=== PATIENT | male | born 1955 | race Caucasian/White ===

== ENCOUNTER 2017-01-24 17:42 | Inpatient (IN) ==
[2017-01-24] MEDS ORDERED: ALBUTEROL/IPRATROPIUM 3 ML NEB RESP TX STA (19:00)
[2017-01-24] MEDS ORDERED: methylPREDNISolone SOD SUC 125 MG/2 ML VIAL IV STA (19:00)
[2017-01-24] MEDS ORDERED: AZITHROMYCIN INJ 500 MG in SODIUM CHLORIDE 0.9% 250 ML IV STA (19:00)
[2017-01-24] MEDS ORDERED: SULFAMETHOX/TRIMETHOPRIM 800-160 MG TABLET PO STA (19:02)
--- NOTE | 2017-01-24 19:11 | Emergency Department Note ---
Arrival - Arrival Chief Complaint: Shortness of Breath Stated Complaint: can not breathe deep ED Nursing Triage Note: C/O HAVING CHEST TIGHTNESS X 2 DAYS., STATES HE IS UNABLE TO GET A DEEP BREATH., + CHILLS, STATES THE PAIN IN CHEST IS RADIATING TO THE NECK, ALSO STATES HAVING COLD SYMTPOMS X 2 WEEKS., + SOB., Mode of Arrival: Ambulatory Limitations: No Limitations Source: Patient Time Seen by Provider: 01/24/17 19:00 - History of Present Illness HPI Narrative: This 61-year-old white male presents with a history of 2 days of what he describes as chest tightness and not true pain associated with the sensation that he cannot get a deep breath. However he is also had complaints of chills, fever, and dyspnea on exertion as well as rest. This is with a background of 2 weeks of sinus type symptoms and a history of HIV diagnosed 19 years ago and PCP pneumonia during his first year of diagnosis. The patient was taken off medications 18 months ago and has no idea at this time what his CD4 count or viral load is. He denies any sore throat. Currently he appears in no acute medical distress. Onset (ago): day(s) (Patient presents 2 days post onset of symptoms) Allergies/Adverse Reactions: Allergies Allergy/AdvReac Type Severity Reaction Status Date / Time No Known Allergies Allergy Unverified 01/24/17 17:51 Home Medications: Home Medications Medication Instructions Recorded Confirmed Type No Known Home Medications [No 01/24/17 01/24/17 History Known Home Medications] Review of System - Review of System 12 point system: reviewed and no additional remarkable complaints except as stated - Review of System Constitutional: Present: as per HPI Head/Ears/Nose/Throat: Present: see HPI Respiratory: Present: as per HPI Cardiovascular: Present: as per HPI Medical,Surgical,& Family Hx - Medical History Other: History of: HIV - Social History Smoking Status: Smoker, status unknown Frequency of Alcohol Use: None Type of Drug Use: Marijuana, Methamphetamine Exam Physical Examination: GENERAL: Well developed, well nourished white male in no acute distress. HEENT: Normocephalic. No trauma. Moist mucous membranes. EOMI. PERRLA. ENT NML NECK: Supple. No adenopathy. CARDIAC: Regular. No murmurs. Heart rate 106 CHEST: Clear to auscultation. No respiratory distress. O2 sat 92% ABDOMEN: Soft. Nontender. Active bowel sounds. EXTREMITIES: No trauma. Normal ROM. No pedal edema. SKIN: No diaphoresis. No rash. NEURO: Alert. Neuro intact no focal deficits. Vital Signs: Vital Signs Temperature 98.0 F 01/24/17 17:45 Pulse Rate 101 H 01/24/17 18:50 Respiratory Rate 20 01/24/17 18:50 Blood Pressure 159/118 01/24/17 18:50 O2 Sat by Pulse Oximetry 92 L 01/24/17 17:45 Course - Reevaluation(s) Reevaluation #1: Advised patient that with his cardiopulmonary problems he will need to be admitted for further evaluation and treatment. - Consultations Consultation #1: Discussed with hospitalist service who will admit the patient for further evaluation treatment. Results - Labs CBC & BMP: 01/24/17 18:58 01/24/17 18:58 Labs: I have reviewed his laboratory and noted the leukopenia as well as the bump in troponin and elevated BMP. - Impressions EKG: Sinus tachycardia at 110 with occasional PAC with normal [place] interval and QRS duration. Left atrial enlargement noted nonspecific ST changes. No acute injury pattern noted. - Diagnostic Findings Procedure: Chest x-ray: image reviewed by me, report reviewed by me (Evidence of bilateral infiltrates which are consistent with PCP pneumonia and with failure.) Disposition Clinical Impression: Presumptive PCP pneumonia, Abnormal cardiac enzyme, HIV positive, Congestive heart failure Case discussed with: patient, patient's family Disposition: Still a Patient Condition: Guarded Time of Disposition: 00:07
[2017-01-24 19:19] LABS: Basophils % 0.5 % (0.0-0.8); Eosinophils # 0.1 10*3/uL (0.0-0.87); Eosinophils % 1.9 % (0.00-10.9); Hematocrit 40.9 VOL% (42.0-52.0); Hemoglobin 14.1 GM/DL (14.0-18.0); Immature Granulocytes % 0.3 %; Immature Granulocytes Absolute 0.01 #; Lymphocytes # 1.4 10*3/uL (1.4-4.0); Lymphocytes % 37.9 % (21.2-54.2); Mean Corpuscular HGB Conc 34.5 GM/DL (32-36); Mean Corpuscular Hemoglobin 30 PG (27-34); Mean Corpuscular Volume 85.9 FL (87-102); Mean Platelet Volume 10.2 FL (9.6-12.0); Monocytes # 0.4 10*3/uL (0.11-0.8); Monocytes % 10.1 % (1.7-12.7); Neutrophils # 1.9 10*3/uL (1.4-7.4); Neutrophils % 49.3 % (38.7-73.9); Platelet Count 177 T/CUMM (130-400); Red Blood Count 4.76 MC/CUMM (3.8-5.5); Red Cell Distribution Width 14.5 % (9.3-17.3); White Blood Count 3.8 T/CUMM (4-12)
[2017-01-24] MEDS ORDERED: methylPREDNISolone SOD SUC 125 MG/2 ML VIAL ONE (19:41)
[2017-01-24] MEDS ORDERED: SULFAMETHOX/TRIMETHOPRIM 800-160 MG TABLET ONE (19:41)
[2017-01-24] MEDS ORDERED: AZITHROMYCIN 500 MG VIAL IV ONE (19:41)
[2017-01-24 19:48] LABS: Alanine Aminotransferase 53 U/L (16-61); Alkaline Phosphatase 96 U/L (45-117); Aspartate Amino Transferase 37 U/L (0-37); Bilirubin,Total < 0.39 MG/DL (0.2-1.0); Blood Urea Nitrogen 16 MG/DL (7-18); Calcium 8.3 MG/DL (8.5-10.1); Glucose 90 MG/DL (74-106); Osmolality,Calculated 275.7 MOS/KG (273-304); Potassium 4.1 MMOL/L (3.5-5.1); Sodium 138 MMOL/L (136-145); Total Protein 7.9 G/DL (6.4-8.3)
[2017-01-24 19:49] LABS: Troponin I Only 0.048 NG/ML (0.00-0.045)
[2017-01-24 19:53] LABS: PT Patient Result 10.6 SECS; Partial Thromboplastin Time 32.7 SECS (0-40)
[2017-01-24 20:07] LABS: Apearance,Urine CLEAR (Clear); Bilirubin,Urine Negative (Negative); Blood, Urine Negative (Negative); Glucose,Urine (UA) Negative (Negative); Ketones,Urine Negative (Negative); Mucus,Urine Occasional /LPF (Occasional); Nitrite,Urine Negative (Negative); Protein,Urine 100 MG/DL; RBC,Urine <1 /HPF (0-4); Urine Color Yellow (Yellow); Urine Specific Gravity 1.011 (1.001-1.035); Urine Urobilinogen < 2.0 EU/DL (0.2-1.0); WBC,Urine 1 /HPF (0-6)
[2017-01-24] MEDS ORDERED: FUROSEMIDE 40 MG/4 ML VIAL IV STA (23:25)
[2017-01-24] MEDS ORDERED: FUROSEMIDE 100 MG/10 ML VIAL ONE (23:44)
--- NOTE | 2017-01-25 01:11 | Hospitalist History & Physical ---
Assessment and Plan (1) HIV disease Status: Acute Assessment and plan: Patient is currently on no treatment at all. Will need to check his CD4 count, viral load and viral genotype if detectable. My suspicion that his immune system showed completely he has had pulmonary pneumocystosis in the past suggesting that this is the cause of the problem was likely. I will consult infectious disease to see the patient. In the meantime run LDH on the serum and in the. Try to obtain sputum for PJP, CMV PCR. In the face of his pneumonia we will withhold his antiretrovirals to mitigate immune reconstitution syndrome. ID consult is called Current Visit: Yes (2) Interstitial pneumonia Status: Acute Assessment and plan: More than likely this is PJP pneumonia. Patient is to be started on the trimethoprim sulfa giving creatinine 320 mg/kg of the trimethoprim base every 6 hours. Patient also been put on high-dose steroids using Solu-Medrol 150 mg once followed by 80 mg IV every 6 hours. Check sputum for PCP CMV PCR as well as AFB stain and culture may have to resort to pulmonary consultation on these to get sputum by bronchoscopy if sputum induction fails. Current Visit: Yes History of Present Illness Chief complaint: Respiratory distress History of present illness: Mr. Winters is a 61 year old male presents with a history of 2 days of what he describes as chest tightness and not true pain associated with the sensation that he cannot get a deep breath. However he is also had complaints of chills, fever, and dyspnea on exertion as well as rest. This is with a background of 2 weeks of sinus type symptoms and a history of HIV diagnosed 19 years ago and PCP pneumonia during his first year of diagnosis. The patient was taken off medications 18 months ago and has no idea at this time what his CD4 count or viral load or viral genotype is. He was under the care of Dr. Smith Home Medications Medication Instructions Recorded Confirmed Type No Known Home Medications [No 01/24/17 01/24/17 History Known Home Medications] Allergies Allergy/AdvReac Type Severity Reaction Status Date / Time No Known Allergies Allergy Unverified 01/24/17 17:51 Medical,Surgical,& Family Hx - Medical History Other: History of: HIV - Social History Smoking Status: Smoker, status unknown Frequency of Alcohol Use: None Type of Drug Use: Marijuana, Methamphetamine Review of systems: A 12 system assessment was done. Patient does have some respiratory difficulty. There is no fevers or chills. He does have a feeling of being smothered. Had an abnormal chest x-ray suggesting interstitial pneumonitis pneumonia. History of HIV disease. His immune status has not been quantitated a long time and his viral load has not been quantitated for a long time patient reports being taken off antiretrovirals medication through advice of his primary care provider. Exam - Constitutional Vitals: Period Temp Pulse Resp BP Sys/Calhoun Pulse Ox Last 24 Hr 98.0 F 101-106 18-20 159-181/118-123 92 General appearance: normal weight - Head Head exam: Present: normal inspection, normocephalic, atraumatic - Eye Eye exam: Present: EOMI, other (Anicteric sclera no conjunctival petechiae) - ENT ENT exam: Present: normal exam, normal oropharynx - Neck Neck exam: Present: normal inspection, other (Supple neck no adenopathy no thyromegaly midline trachea no stridor) - Respiratory Respiratory exam: Present: other (No bronchophony no rales or wheezing) - Cardiovascular Cardiovascular exam: Present: regular rate and rhythm - GI/Abdominal GI/Abdominal exam: Present: normal bowel sounds - Extremities Exam Extremities exam: Present: full ROM - Neurological Exam Neurological exam: Present: alert, oriented X3, CN II-XII intact - Psychiatric Psychiatric exam: Present: normal mood, anxious - Skin Skin exam: Present: normal color, warm, dry Results - Labs CBC & BMP: 01/24/17 18:58 01/24/17 18:58 Lab Results: I have reviewed the past 24 hour labs - Diagnostic Findings Procedure: Chest x-ray: image reviewed by me (Interstitial markings especially in the lower lobes suggesting interstitial pneumonitis/pneumonia)
[2017-01-25] MEDS ORDERED: methylPREDNISolone SOD SUC 125 MG/2 ML VIAL IV STA (01:34)
[2017-01-25] MEDS ORDERED: methylPREDNISolone SOD SUC 125 MG/2 ML VIAL ONE (02:10)
[2017-01-25] MEDS: SULFAMETH/TRIMETH INJ 300 MG in DEXTROSE 5% 500 ML IV SCH ×3 (03:51→18:41)
--- NOTE | 2017-01-25 06:06 | EKG Report ---
Stationary ECG Study [facility] ER Test Date: 01/24/2017 5:56:23 PM Pat Name: EPHRAIM ARRINGTON Department: Room: 242 Gender: M Snipper: : 1955 Requested by: Og Ortiz Order Number: [id number] Reading MD: TYRONE FLYNN Intervals [place] Rate: 107 P: 73 NM: 147 QRS: 36 QRSD: 92 T: 94 QT: 342 QTc: 404 Interpretive Statements SINUS TACHYCARDIA WITH OCCASIONAL SUPRAVENTRICULAR PREMATURE COMPLEXES LEFT ATRIAL ENLARGEMENT Electronically Signed On 01-25-17 10:43:53 CDT by TYRONE FLYNN [email or web address]
--- NOTE | 2017-01-25 07:39 | XRay Report ---
Exam: Chest 2 views Date: January 24, 2017 at 11:36 PM Comparison: None Reason: Shortness of breath Findings: The cardiac silhouette is mildly enlarged. The lungs are hyperexpanded, which can be seen in COPD. There are reticular and hazy opacities within both lungs, mainly within the mid and lower lung zones. This is concerning for pulmonary edema, but there could also be fibrosis. Pneumonia is felt less likely but is also in the differential. No pneumothorax is identified, but there may be minimal bilateral pleural fluid. Emphysema is suspected. No acute osseous process is seen. Impression: 1. Cardiomegaly. 2. There are reticular and hazy opacities within both lungs, mainly within the mid and lower lung zones. This is concerning for pulmonary edema, but there could also be fibrosis. Pneumonia is not excluded. 3. The lungs are hyperexpanded, which can be seen in COPD, and emphysema is suspected. PROCEDURE INTERPRETED AT [facility], [place] DEPARTMENT OF RADIOLOGY Final Report Signed by: Dr. Daisy Hutchinson
[2017-01-25] MEDS ORDERED: methylPREDNISolone SOD SUC 40 MG/1 ML VIAL IV SCH (10:00)
--- NOTE | 2017-01-25 14:19 | Infectious Disease Consult ---
Assessment and Plan (1) HIV disease Status: Acute Assessment and plan: Possible significant immune suppression as patient has been off antiretroviral therapy. Recommendations: Patient is to get back on antiretroviral therapy. I offered to be his HIV provider given that Dr. Nelson no longer has an outpatient practice. She his CD4 count and HIV viral load have already been ordered. If I see me in the office we will get his records from Dr. Nelson and reinstitute antiretroviral therapy. Thank you very much for the consult. Will follow. Current Visit: Yes (2) Interstitial pneumonia Status: Acute Assessment and plan: PCP is a possibility in this case of the would have expected his LDH to be elevated. If it is PCP it is mild given the fact that his O2 saturation has been above 90%. Recommendations: 1. Agree with Bactrim however would decrease the dose to every 8 hours, 5 mg/ kg trimethoprim component 2. Will discontinue steroids since his oxygen saturation has been above 90% consistently 3. Send sputum for Gram stain culture and also silver stain if patient able to produce sample 4. If patient remains stable we could let him go home on oral Bactrim 2 double strength tablets 3 times a day and I will see him in the office within a week Current Visit: Yes History of Present Illness Chief complaint: HIV infection History of present illness: Mr. Winters is a 61 year old male Who was diagnosed with HIV 19 years ago and was doing very well being treated by Dr. Patricia. However about 9 months ago he decided to take himself off antiretroviral therapy as he was concerned about damage to his liver. He has been well since then until a few days ago when he started having tightness in his chest especially when he took a deep breath in and out. He also was experiencing exertional dyspnea for the past couple of weeks. Minimal whitish sputum when he coughs, no hemoptysis. He has not had any fever or chills. Appetite has been excellent no nausea vomiting or diarrhea. No significant weight loss recently. He has been put on empiric Bactrim for PCP and also given high-dose steroids. I am asked to assist with management. Patient actually says he is feeling a bit better today and he is ready to go home if possible. Patient admits to IV drug use, methamphetamine, with last use about 2 weeks ago. He says he never shares needles. No past history of hepatitis. Home Medications Medication Instructions Recorded Confirmed Type No Known Home Medications [No 01/24/17 01/24/17 History Known Home Medications] Allergies Allergy/AdvReac Type Severity Reaction Status Date / Time No Known Allergies Allergy Unverified 01/24/17 17:51 12 point system: reviewed and no additional remarkable complaints except as stated (Patient thinks he had thrush a few weeks ago. Rest of comprehensive review of systems negative apart from what was mentioned in the HPI) Medical,Surgical,& Family Hx - Medical History Respiratory: History of: Pneumonia (pcp x2) Reproductive: Reports: Sexually Transmitted Disease (HIV x 19 years) Other: History of: HIV - Social History Smoking Status: Smoker, status unknown Frequency of Alcohol Use: None Type of Drug Use: Marijuana, Methamphetamine Infectious Disease Exam H&P - Constitutional Vitals: Vital Signs Temp Pulse Resp BP Pulse Ox 98.4 F 100 H 20 139/80 93 L 01/25/17 12:00 01/25/17 12:00 01/25/17 12:00 01/25/17 12:00 01/25/17 12:00 Intake and Output 01/24/17 01/25/17 01/25/17 23:59 07:59 15:59 Intake Total 250 / 250 518.75 / 518.75 Output Total 350 / 350 Balance 250 / 250 168.75 / 168.75 Intake: IV 250 / 250 518.75 / 518.75 Zithromax Inj 500 mg In 250 / 250 Ns 250 ml @ 250 mls/hr IV 1X ED STA Rx#:[id number] Bactrim Inj 300 mg In D5 518.75 / 518.75 500 ml @ 333 mls/hr IV Q6H LEÓN Rx#:[id number] Output: Urine 350 / 350 Other: Voiding Method Urinal Weight 70.307 kg 68.991 kg Patient Weight 01/25/17 23:59 Weight 68.991 kg Exam: General: Patient comfortable, nontoxic appearing, well built HEENT: Mucous membranes pink and moist, anicteric acyanotic, JULIO, no oral exudates Neck: Supple, no thyroid gland enlargement, no lymphadenopathy Respiratory system: Breath sounds vesicular, no crepitations or wheezes Cardiovascular: Normal S1 and S2, no murmurs appreciated Abdomen: Normal bowel sounds, soft nontender throughout, no organomegaly or mass Genitourinary: No suprapubic pain or bladder distention Extremities: no edema Skin: No rash Reports - Labs CBC & BMP: 01/24/17 18:58 01/24/17 18:58 Labs: Laboratory Results - last 24 hr 01/24/17 01/24/17 01/24/17 18:58 18:58 18:58 WBC 3.8 L RBC 4.76 Hgb 14.1 Hct 40.9 L MCV 85.9 L MCH 30 MCHC 34.5 RDW 14.5 Plt Count 177 MPV 10.2 Neut % (Auto) 49.3 Lymph % (Auto) 37.9 [place] % (Auto) 10.1 Eos % (Auto) 1.9 Baso % (Auto) 0.5 Neut # (Auto) 1.9 Lymph # (Auto) 1.4 [place] # (Auto) 0.4 Eos # (Auto) 0.1 Baso # (Auto) 0.0 Immature Gran % 0.3 Nucleated RBC % 0.0 Immature Gran # 0.01 Nucleated RBCs # 0.00 INR 1.0 PT Patient/Control Mix 10.6 Circ Anticoag PTT 32.7 Sodium 138 Potassium 4.1 Chloride 107 Carbon Dioxide 24 Anion Gap 11.1 BUN 16 Creatinine 0.90 GFR Calculation 98 BUN/Creatinine Ratio 17.00 Glucose 90 Calculated Osmolality 275.7 Calcium 8.3 L Total Bilirubin < 0.39 AST 37 ALT 53 Alkaline Phosphatase 96 Lactate Dehydrogenase Total Creatine Kinase 97 CK-MB (CK-2) 3.0 Troponin I 0.048 H B-Natriuretic Peptide Total Protein 7.9 Albumin 3.0 L Globulin 4.9 H Albumin/Globulin Ratio 0.6 L Urine Color Urine Appearance Urine pH Ur Specific [place] Urine Protein Urine Glucose (UA) Urine Ketones Urine Blood Urine Nitrate Urine Bilirubin Urine Urobilinogen Urine Leukocytes Urine RBC Urine WBC Urine Mucus Ur Culture Indicated? 01/24/17 01/24/17 01/25/17 18:58 19:32 Unknown WBC RBC Hgb Hct MCV MCH MCHC RDW Plt Count MPV Neut % (Auto) Lymph % (Auto) [place] % (Auto) Eos % (Auto) Baso % (Auto) Neut # (Auto) Lymph # (Auto) [place] # (Auto) Eos # (Auto) Baso # (Auto) Immature Gran % Nucleated RBC % Immature Gran # Nucleated RBCs # INR PT Patient/Control Mix Circ Anticoag PTT Sodium Potassium Chloride Carbon Dioxide Anion Gap BUN Creatinine GFR Calculation BUN/Creatinine Ratio Glucose Calculated Osmolality Calcium Total Bilirubin AST ALT Alkaline Phosphatase Lactate Dehydrogenase 244 Total Creatine Kinase CK-MB (CK-2) Troponin I B-Natriuretic Peptide 490 H Total Protein Albumin Globulin Albumin/Globulin Ratio Urine Color Yellow Urine Appearance Clear Urine pH 5.0 Ur Specific [place] 1.011 Urine Protein 100 Urine Glucose (UA) Negative Urine Ketones Negative Urine Blood Negative Urine Nitrate Negative Urine Bilirubin Negative Urine Urobilinogen < 2.0 H Urine Leukocytes Negative Urine RBC <1 Urine WBC 1 Urine Mucus Occasional Ur Culture Indicated? Not indicated - Diagnostic Findings Procedure: Chest x-ray: image reviewed by me, report reviewed by me (Increased interstitial markings diffusely especially lower zones)
[2017-01-26] MEDS ORDERED: ALBUTEROL/IPRATROPIUM 3 ML NEB RESP TX ONE (01:30)
[2017-01-26] MEDS: SULFAMETH/TRIMETH INJ 300 MG in DEXTROSE 5% 500 ML IV SCH ×3 (02:47→18:00)
[2017-01-26 06:30] LABS: Basophils % 0.1 % (0.0-0.8); Hematocrit 40.7 VOL% (42.0-52.0); Immature Granulocytes % 1.3 %; Immature Granulocytes Absolute 0.09 #; Lymphocytes # 1.6 10*3/uL (1.4-4.0); Lymphocytes % 22.7 % (21.2-54.2); Mean Corpuscular HGB Conc 34.4 GM/DL (32-36); Mean Corpuscular Hemoglobin 29 PG (27-34); Mean Corpuscular Volume 84.8 FL (87-102); Mean Platelet Volume 10.7 FL (9.6-12.0); Monocytes # 0.7 10*3/uL (0.11-0.8); Monocytes % 10.3 % (1.7-12.7); Neutrophils # 4.7 10*3/uL (1.4-7.4); Neutrophils % 65.6 % (38.7-73.9); Platelet Count 211 T/CUMM (130-400); Red Cell Distribution Width 14.5 % (9.3-17.3); White Blood Count 7.1 T/CUMM (4-12)
[2017-01-26 06:55] LABS: Hypochromasia Slight; Lymphocytes 18 % (20-55); Microcytosis 1+; Platelet Estimate Adequate; Segmented Neutrophils 75 % (50-85); Total Cells Counted 100
[2017-01-26] MEDS: ALBUTEROL/IPRATROPIUM 3 ML NEB RESP TX SCH ×3 (10:29→19:26)
--- NOTE | 2017-01-26 14:12 | Hospitalist Progress Note ---
Assessment and Plan (1) HIV disease Status: Acute Assessment and plan: Has been off VINSON therapy for around 9 months ID assisting, will need outpatient follow-up Current Visit: Yes (2) Interstitial pneumonia Status: Acute Assessment and plan: Being treated as PCP currently ID assisting Continue bactrim Possible discharge tomorrow Current Visit: Yes Hospitalist: Subjective Interval history: Overnight patient reports some mild sob with lying flat. He reports that otherwise he feels well this morning. Exam - Constitutional Vitals: Period Temp Pulse Resp BP Sys/Calhoun Pulse Ox Last 24 Hr 97.9 F-98.8 F 84-104 16-22 115-132/71-87 91-98 General appearance: normal weight - Head Head exam: Present: normocephalic, atraumatic - Eye Eye exam: Present: EOMI Pupils: Present: JULIO - ENT ENT exam: Present: normal exam - Neck Neck exam: Present: normal inspection - Respiratory Respiratory exam: Present: clear to auscultation bilaterally. Absent: rhonchi, wheezes - Cardiovascular Cardiovascular exam: Present: regular rate and rhythm - GI/Abdominal GI/Abdominal exam: Present: normal bowel sounds, soft. Absent: tenderness, rebound - Extremities Exam Extremities exam: Present: normal inspection - Back Exam Back exam: Present: normal inspection - Neurological Exam Neurological exam: Present: alert, oriented X3 - Psychiatric Psychiatric exam: Present: normal affect, normal mood - Skin Skin exam: Present: warm, intact Results - Labs CBC & BMP: 01/26/17 05:58 01/24/17 18:58
--- NOTE | 2017-01-26 16:15 | Infectious Disease Progress ---
Assessment and Plan (1) HIV disease Status: Acute Assessment and plan: Possible significant immune suppression as patient has been off antiretroviral therapy. Recommendations: Follow-up CD4 count and viral load. I can see patient in the office on discharge to get him back on antiretroviral therapy. Current Visit: Yes (2) Interstitial pneumonia Status: Acute Assessment and plan: PCP is a possibility in this case but would have expected his LDH to be elevated. Recommendations: Continue empiric Bactrim. If patient remains stable we could let him go home on oral Bactrim 2 double strength tablets 3 times a day and I will see him in the office within a week and follow-up on the pending results. Current Visit: Yes Infectious Disease - PN: Subj Interval history: Patient doing okay, says no significant shortness of breath, ambulates okay. No fever. Minimal cough and no sputum. Diet good. Infectious Disease Exam (PN) - Constitutional Vitals: Temp Pulse Resp BP Pulse Ox 97.2 F L 99 H 22 120/59 93 L 01/26/17 15:50 01/26/17 15:50 01/26/17 15:50 01/26/17 15:50 01/26/17 15:50 General appearance: normal weight Exam: General appearance: no acute distress - Eye Eye exam: Present: EOMI. no icterus Pupils: Present: JULIO - ENT ENT exam: no oral exudates - Respiratory Respiratory exam: vesicular BS, no crepitations or wheezes - Cardiovascular Cardiovascular exam: regular rate and rhythm, no murmurs - GI/Abdominal GI/Abdominal exam: normal bowel sounds, soft, non-tender, no organomegaly or mass - Extremities Exam Extremities exam: no edema - Skin Skin exam: no rash, spider nevi on upper body and on upper limbs Results - Labs CBC & BMP: 01/26/17 05:58 01/24/17 18:58 Lab Results: I have reviewed the past 24 hour labs
[2017-01-27] MEDS: ALBUTEROL/IPRATROPIUM 3 ML NEB RESP TX SCH ×4 (00:41→19:22)
[2017-01-27] MEDS: SULFAMETH/TRIMETH INJ 300 MG in DEXTROSE 5% 500 ML IV SCH ×2 (01:34→10:49)
[2017-01-27 05:10] LABS: Basophils % 0.2 % (0.0-0.8); Eosinophils % 0.2 % (0.00-10.9); Hematocrit 39.5 VOL% (42.0-52.0); Hemoglobin 13.4 GM/DL (14.0-18.0); Immature Granulocytes % 0.2 %; Immature Granulocytes Absolute 0.01 #; Lymphocytes # 1.1 10*3/uL (1.4-4.0); Lymphocytes % 20.2 % (21.2-54.2); Mean Corpuscular HGB Conc 33.9 GM/DL (32-36); Mean Corpuscular Hemoglobin 30 PG (27-34); Mean Platelet Volume 10.4 FL (9.6-12.0); Monocytes # 0.5 10*3/uL (0.11-0.8); Monocytes % 8.9 % (1.7-12.7); Neutrophils # 3.9 10*3/uL (1.4-7.4); Neutrophils % 70.3 % (38.7-73.9); Platelet Count 175 T/CUMM (130-400); Red Blood Count 4.54 MC/CUMM (3.8-5.5); Red Cell Distribution Width 14.6 % (9.3-17.3); White Blood Count 5.6 T/CUMM (4-12)
[2017-01-27 05:33] LABS: Hypochromasia Slight
[2017-01-27 05:34] LABS: Microcytosis 1+; Ovalocytes Slight; Platelet Estimate Adequate
[2017-01-27 05:41] LABS: Calcium 8.1 MG/DL (8.5-10.1); Magnesium 2.5 MG/DL (1.8-2.4); Osmolality,Calculated 271.8 MOS/KG (273-304); Potassium 4.3 MMOL/L (3.5-5.1)
[2017-01-27] MEDS ORDERED: POLYETHYLENE GLYCOL POWDER 17 GM PACK PO PRN (11:06)
[2017-01-27] MEDS ORDERED: MAGNESIUM HYDROXIDE SUSP 30 ML UDCUP PO PRN (11:06)
[2017-01-27 11:39] LABS: % CD4 (T Cells) 23 % (32-64); % CD8 (T Cells) 58 % (8-40); 4/8 Ratio 0.4 (>=0.9)
--- NOTE | 2017-01-27 13:57 | Infectious Disease Progress ---
Assessment and Plan (1) HIV disease Status: Acute Assessment and plan: CD4 count 240. Recommendations: Follow-up viral load. I can see patient in the office on discharge to get him back on antiretroviral therapy. Current Visit: Yes (2) Interstitial pneumonia Status: Acute Assessment and plan: Given normal LDH and the fact that the CD4 count is not less than 200, I doubt PCP. Furthermore patient has not been hypoxemic. General he has improved since admission. Recommendations: I am going to stop Bactrim. Patient can be treated with a 5 day course of azithromycin. I will sign off now. Call again as needed. I can see him in the office in 1 week. Current Visit: Yes Infectious Disease - PN: Subj Interval history: Patient doing okay, still feels a little short of breath with exertion, minimal cough no sputum. No fever. Excellent appetite. Infectious Disease Exam (PN) - Constitutional Vitals: Temp Pulse Resp BP Pulse Ox 97.0 F L 97 H 20 138/94 97 01/27/17 07:35 01/27/17 13:25 01/27/17 13:25 01/27/17 07:35 01/27/17 13:25 General appearance: normal weight Exam: General appearance: no acute distress, sitting comfortably in chair - Eye Eye exam: Present: EOMI. no icterus Pupils: Present: JULOI - ENT ENT exam: no oral exudates - Respiratory Respiratory exam: vesicular BS, no crepitations or wheezes - Cardiovascular Cardiovascular exam: regular rate and rhythm, no murmurs - GI/Abdominal GI/Abdominal exam: normal bowel sounds, soft, non-tender, no organomegaly or mass - Extremities Exam Extremities exam: no edema - Skin Skin exam: no rash, spider nevi on upper body and on upper limbs Results - Labs CBC & BMP: 01/27/17 04:51 01/27/17 04:51 Lab Results: I have reviewed the past 24 hour labs (CD4 count 240)
[2017-01-27] MEDS ORDERED: AZITHROMYCIN 250 MG TABLET PO ONE (14:00)
--- NOTE | 2017-01-27 16:20 | Hospitalist Progress Note ---
Assessment and Plan (1) HIV disease Status: Acute Assessment and plan: Has been off VINSON therapy for around 9 months ID assisting, will need outpatient follow-up in one week Current Visit: Yes (2) Interstitial pneumonia Status: Acute Assessment and plan: ID assisting Discontinuing bactrim Will need 5 days of azithromycin Possible discharge tomorrow Current Visit: Yes Hospitalist: Subjective Interval history: No acute events overnight. Patient reports that this his the first day that his breathing has felt better, able to take deep breaths. Hope for discharge tomorrow. Exam - Constitutional Vitals: Period Temp Pulse Resp BP Sys/Calhoun Pulse Ox Last 24 Hr 97.0 F-98.5 F 89-102 18-20 122-143/81-94 91-99 General appearance: normal weight - Head Head exam: Present: normocephalic, atraumatic - Eye Eye exam: Present: EOMI Pupils: Present: JULIO - ENT ENT exam: Present: normal exam - Neck Neck exam: Present: normal inspection - Respiratory Respiratory exam: Present: clear to auscultation bilaterally. Absent: wheezes - Cardiovascular Cardiovascular exam: Present: regular rate and rhythm - GI/Abdominal GI/Abdominal exam: Present: normal bowel sounds, soft. Absent: tenderness - Extremities Exam Extremities exam: Present: normal inspection - Back Exam Back exam: Present: normal inspection - Neurological Exam Neurological exam: Present: alert, oriented X3 - Psychiatric Psychiatric exam: Present: normal affect, normal mood - Skin Skin exam: Present: warm, intact Results - Labs CBC & BMP: 01/27/17 04:51 01/27/17 04:51 Specialty Discharge - Follow Up or Referrals Follow up with: Mounika Bartholomew MD [Physician] - 1 Week
[2017-01-28] MEDS: ALBUTEROL/IPRATROPIUM 3 ML NEB RESP TX SCH ×4 (00:13→19:08)
[2017-01-28] MEDS ORDERED: PHENOL 1.4% THROAT SPRAY 177 ML BOTTLE PO PRN (08:53)
[2017-01-28] MEDS: AZITHROMYCIN 250 MG TABLET PO SCH (09:22)
--- NOTE | 2017-01-28 13:26 | Hospitalist Progress Note ---
Assessment and Plan (1) HIV disease Status: Acute Assessment and plan: Has been off VINSON therapy for around 9 months ID assisting, will need outpatient follow-up in one week Current Visit: Yes (2) Interstitial pneumonia Status: Acute Assessment and plan: ID assisting Discontinuing bactrim Will need 5 days of azithromycin Possible discharge tomorrow Current Visit: Yes Hospitalist: Subjective Interval history: This morning patient reports that he does not feel well. He feels that he is unable to take a deep breath. Complaining of throat pain. Exam - Constitutional Vitals: Period Temp Pulse Resp BP Sys/Calhoun Pulse Ox Last 24 Hr 97.8 F-98.9 F 77-103 16-20 110-152/56-80 91-98 General appearance: normal weight - Head Head exam: Present: normocephalic, atraumatic - Eye Eye exam: Present: EOMI Pupils: Present: JULIO - ENT ENT exam: Present: normal exam - Neck Neck exam: Present: normal inspection - Respiratory Respiratory exam: Present: clear to auscultation bilaterally. Absent: rhonchi, wheezes - Cardiovascular Cardiovascular exam: Present: regular rate and rhythm - GI/Abdominal GI/Abdominal exam: Present: normal bowel sounds, soft. Absent: tenderness, rebound - Extremities Exam Extremities exam: Present: normal inspection - Back Exam Back exam: Present: normal inspection - Neurological Exam Neurological exam: Present: alert, oriented X3 - Psychiatric Psychiatric exam: Present: normal affect, normal mood - Skin Skin exam: Present: warm, intact Results - Labs CBC & BMP: 01/27/17 04:51 01/27/17 04:51 Specialty Discharge - Follow Up or Referrals Follow up with: Mounika Bartholomew MD [Physician] - 02/04/17 9:30 am
[2017-01-29] MEDS: ALBUTEROL/IPRATROPIUM 3 ML NEB RESP TX SCH ×2 (00:19→07:11)
[2017-01-29 08:15] VITALS: BP 108/70
--- NOTE | 2017-01-29 09:00 | Discharge Summary ---
<Colette Lopez - Last Filed: 01/29/17 09:10> Hospital Course - Hospital Course Hospital Course: This is a very pleasant 61-year-old male that presented to the ED at [facility] on January 24, 2017 for the evaluation of shortness of breath. Patient has a very extensive medical history of human immunodeficiency virus, cannabis addiction and methamphetamine addiction. Patient reports no surgical history at the time of encounter. The patient reported the onset of symptoms 2 days prior to presentation. He described the pain as chest tightness and not true chest pain. He attributed the chest tightness to the shortness of breath and his inability to deep breathe. In addition the patient also reported complaints of chills, fever, and dyspnea on exertion as well as rest. The patient reports that he was diagnosed with human immunodeficiency virus 19 years ago and at the time of diagnosis he was subsequently diagnosed with pneumocystic carinii pneumonia within the first year of his diagnosis. He reports that he was "taken off" his antiretroviral regimen 18 months ago. He reports that he has not been followed by his infectious disease doctor and is unaware of what his CD4 count or viral load ears at this time. Labs were obtained at the time of presentation; hematology panel reported white blood cell count at 3.8, hemoglobin at 14.1, hematocrit at 40.9, and platelet count at 177. Coagulation panel reported an INR at 1.0. Chemistry panel reported a sodium at 138, potassium 4.1, chloride 107, carbon dioxide 24, anion gap at 11.1, BUN at 16, creatinine at 0.90, calculated osmolality at 275.0, calcium at 8.3, total bilirubin at less than 0.39, AST 37, ALT at 53, alkaline phosphatase at 96, lactate dehydrogenase at 244, and total protein is 7.9. BNP was noted at 490. Cardiac enzymes were obtained which reported a troponin at 0.048. Urinalysis was obtained which was essentially unremarkable. An immunology panel was obtained which reported a % CD3 at 82, absolute CD 3 count at 872, % CD4 sales at 23, absolute CD4 helper at 240, T-help/suppressor ratio at 0.4, % CD8 cells at 58, absolute CD8 count at 621, CD 45+ count at 1.06. Chest x-ray was obtained which reported evidence of bilateral infiltrates which were consistent with pneumocystic carinii pneumonia and with failure. The patient was subsequently admitted to the hospitalist group for continuation of care. Empiric antibiotics and intravenous corticosteroids were initiated. Infectious disease consult was obtained. The patient's condition gradually improved. He has been afebrile and experienced no significant overnight events. Today, we feel that he is indeed appropriate for discharge to follow-up with his primary care physician and infectious disease physician as indicated. Spoke with patient in great detail regarding the need to maintain medical compliance. Patient was instructed that he needed to follow-up with his infectious disease doctor and recheck his CD4 levels as soon as possible. The patient will be discharged on a 5 day course azithromycin for CAP; he is to follow-up with Dr. Quinn in 1 week. Specialty Discharge - Follow Up or Referrals Follow up with: Mounika Bartholomew MD [Physician] - 02/04/17 9:30 am Discharge Plan - Discharge Medications New Polyethylene Glycol Powder [Miralax] 17 gm PO DAILY PRN PRN Reason: Constipation Azithromycin Tab [Zithromax Tab] 250 mg PO DAILY #3 tablet Magnesium Hydroxide Susp [Milk of Magnesia] 30 ml PO BID PRN PRN Reason: Constipation - Follow Up or Referral Follow Up: Mounika Bartholomew MD [Physician] - 02/04/17 9:30 am - Forms/Instructions Exam - Constitutional Vitals: Period Temp Pulse Resp BP Sys/Calhoun Pulse Ox Last 24 Hr 97.8 F-99.1 F 68-104 18-20 100-130/60-76 90-98 Discharge Results Procedures and tests throughout hospitalization: Pending Orders 01/24/17 19:49 Blood Culture Stat 01/25/17 09:30 HIV-1RNA/Reflex Nelida Routine 01/27/17 Sputum Culture and Gram Stain Stat Labs on day of discharge: Preliminary micro results at discharge 01/27/17 Unknown Sputum Culture - Preliminary Sputum Gram Negative Rods Gram Stain - Preliminary 01/24/17 19:49 Blood Culture - Preliminary Blood No growth at 3 days 01/24/17 19:32 Blood Culture - Preliminary Blood No growth at 3 days DS: Provider Date of admission: 01/25/17 02:00 Primary care physician: . No PCP Attending physician on admission: Alan Curry MD Consults: 01/25/17 01:40 Consult to Physician [CONS] Routine Comment: Dr. Bartholomew/HIV disease/pneumonia Consulting Provider: Mounika Bartholomew Consult to Specialist Group: Infectious Disease When should Consulting Provider be notified: In am Person Notified: judah Date Notified: 01/25/17 Time Notified: 08:45 Discharging clinician: Colette Lopez CNP <Cheryl Bah - Last Filed: 01/29/17 11:12> Diagnosis - Discharge Diagnosis (1) HIV disease Status: Chronic (2) Interstitial pneumonia Status: Acute Exam - Constitutional Exam: General appearance: normal weight - Head Head exam: Present: normocephalic, atraumatic - Respiratory Respiratory exam: Present: clear to auscultation bilaterally. Absent: rhonchi, wheezes - Cardiovascular Cardiovascular exam: Present: regular rate and rhythm - GI/Abdominal GI/Abdominal exam: Present: normal bowel sounds, soft. Absent: tenderness, rebound - Extremities Exam Extremities exam: Present: normal inspection - Back Exam Back exam: Present: normal inspection - Neurological Exam Neurological exam: Present: alert, oriented X3 - Skin Skin exam: Present: warm, intact
[2017-01-29] MEDS: AZITHROMYCIN 250 MG TABLET PO SCH (09:02)
[2017-02-10 07:33] LABS: HIV-1 Genotypic PR-RT Drug Res INTERP; Tipranavir + Ritonavir SUSC
== END 2017-01-29 13:05 | disposition home or self-care (01) | DRG 892 ==
LOC: N.ED 17:42 → SUATTDRO 01-25 02:00 → N.EDINP 01-25 02:00 → N.2E 01-25 02:45
PROVIDERS: ADMIT Internal Medicine Infectious Disease; ATTEND Internal Medicine

== ENCOUNTER 2017-04-06 11:05 | Observation (INO) ==
[2017-04-06] MEDS ORDERED: METOPROLOL TARTRATE 5 MG/5 ML VIAL IV STA (11:47)
--- NOTE | 2017-04-06 11:55 | Emergency Department Note ---
Lili Ryan Hilary, am scribing for, and in the presence of, Hilario Bhagat MD 11: 50. Leola Ryan James D, MD, personally performed the services described in this documentation, ascribed by Emilie Pearson in my presence, and it is both accurate and complete . Arrival - Arrival Chief Complaint: Shortness of Breath Stated Complaint: SOB,recently had pneumonia,feels same ED Nursing Triage Note: SOB ONSET OVER A WEEK AGO, RECENTLY TREATED FOR PNEUMONIA, SUBJECTIVE TEMP, +HIV Mode of Arrival: Ambulatory Limitations: No Limitations Source: Patient, RN Notes Reviewed Time Seen by Provider: 04/06/17 11:37 - History of Present Illness HPI Narrative: Pt is a 61 y/o white male presenting to the ED for c/o of SOB which onset a week ago. Pt confirms cough, fever, SOB and "bricks laying on his chest", diaphoresis but denies abdominal pain, nausea, vomiting swelling or hx of heart problems. Pt states he is +HIV but has been off of his medication for almost a year while he has been in between doctors. No other complaints or problems stated in the ED. Onset (ago): week(s) Consistency: constant Severity: mild Severity scale (1-10): 1 Allergies/Adverse Reactions: Allergies Allergy/AdvReac Type Severity Reaction Status Date / Time PACHECO OIL Allergy ANAPHYLAXIS Uncoded 04/06/17 11:27 Home Medications: Home Medications Medication Instructions Recorded Confirmed Type No Known Home Medications [No 04/06/17 04/06/17 History Known Home Medications] Review of System - Review of System 12 point system: reviewed and no additional remarkable complaints except as stated - Review of System Constitutional: Present: diaphoresis, fever Respiratory: Present: cough, respiratory distress (SOB) Cardiovascular: Present: chest pain Gastrointestinal: Absent: nausea, vomiting Medical,Surgical,& Family Hx - Medical History Respiratory: History of: Pneumonia (pcp x2) Reproductive: Reports: Sexually Transmitted Disease (HIV x 19 years) Other: History of: HIV - Social History Smoking Status: Smoker, status unknown Exam Physical Examination: GENERAL: This is a well-nourished, well-developed white male in no apparent distress. VITAL SIGNS: Temperature: 98.5 Pulse: 106 Respiratory: 24 Blood Pressure: 150 /121 O2Sat: 95 HEENT: Head is normocephalic and atraumatic. Pupils are equally round and reactive to light. Extraocular movement are intact. Oropharynx is benign with moist mucous membranes. NECK: Neck is soft and supple without tenderness. There are no masses. There is no lymphadenopathy. LUNGS: Lungs are clear to auscultation bilaterally. Chest rises symmetrically. There is no chest wall tenderness. CV: Heart is regular rate and rhythm without murmurs, rubs, or gallops. ABDOMEN: Abdomen is soft, non-tender to palpation. There are no abnormal masses palpated. There is no organomegaly. Bowel sounds are present and active. SKIN: Skin is warm and dry. No rash. EXTREMITIES: Patient has full range of motion without tenderness. There is no pedal edema. NEUROLOGIC: Awake, alert, and oriented x4. Cranial nerves II through XII are grossly intact. There are no motorsensory deficits. PSYCHIATRIC: Normal affect. Normal mood. Vital Signs: Vital Signs Temperature 99.9 F H 04/07/17 08:00 Pulse Rate 53 L 04/07/17 08:00 Respiratory Rate 20 04/07/17 08:00 Blood Pressure 118/74 04/07/17 08:00 O2 Sat by Pulse Oximetry 95 04/07/17 08:00 Course - Consultations Consultation #1: Discussed with hospitalist. Patient will be admitted to their service. Time: 13:15 Results - Labs CBC & BMP: 04/07/17 03:44 04/06/17 11:37 Lab Results: I have reviewed the patients labs Labs: Laboratory Tests 04/06/17 04/06/17 11:37 11:37 WBC 3.2 L RBC 5.54 H Hgb 16.1 Hct 46.7 MCV 84.3 L Plt Count 183 Lymph # (Auto) 0.9 L Sodium 135 L Potassium 4.0 Chloride 101 Carbon Dioxide 28 BUN 5 L BUN/Creatinine Ratio 5.00 L Calculated Osmolality 266.1 L Total Protein 8.7 H Globulin 5.0 H Albumin/Globulin Ratio 0.7 L Laboratory Tests 04/06/17 04/06/17 11:37 11:37 Total Counted 100 Segmented Neutrophils 56 Lymphocytes 36 Monocytes 8 Platelet Estimate Adequate Poikilocytosis Slight Troponin I 0.044 - EKG EKG results: interpreted by ERMD - Impressions EKG: Sinus rhythm with occasional supraventricular premature beats, rate 92, left atrial enlargement, LVH with repolarization abnormality. - Diagnostic Findings Procedure: Chest x-ray: image reviewed by me (Cardiomegaly, increased pulmonary markings, hyperinflation.) Disposition Clinical Impression: Dyspnea Case discussed with: patient Disposition: Still a Patient Condition: Stable Time of Disposition: 12:09
--- NOTE | 2017-04-06 11:55 | XRay Report ---
2 view chest. Indication: Shortness of breath. Comparison: January 24, 2017. The heart is enlarged. The lung kaiser are hyperexpanded. Interstitial markings are quite prominent. No consolidation, pneumothorax, or pleural effusion. Possible pulmonary nodule at the left lung base, adjacent to the heart border. Impression: Severe COPD. Cardiomegaly. Possible pulmonary nodule at the left lung base. CT the chest recommended. PROCEDURE INTERPRETED AT [facility] DEPARTMENT OF RADIOLOGY Final Report Signed by: Dr. Vibha Augustin
[2017-04-06] MEDS ORDERED: METOPROLOL TARTRATE 5 MG/5 ML VIAL IV ONE (12:03)
[2017-04-06 12:29] LABS: Basophils % 0.6 % (0.0-0.8); Eosinophils % 0.6 % (0.00-10.9); Hematocrit 46.7 VOL% (42.0-52.0); Hemoglobin 16.1 GM/DL (14.0-18.0); Immature Granulocytes % 0.9 %; Immature Granulocytes Absolute 0.03 #; Lymphocytes # 0.9 10*3/uL (1.4-4.0); Lymphocytes % 26.5 % (21.2-54.2); Mean Corpuscular HGB Conc 34.5 GM/DL (32-36); Mean Corpuscular Hemoglobin 29 PG (27-34); Mean Corpuscular Volume 84.3 FL (87-102); Mean Platelet Volume 10.8 FL (9.6-12.0); Monocytes # 0.3 10*3/uL (0.11-0.8); Monocytes % 9.3 % (1.7-12.7); Neutrophils % 62.1 % (38.7-73.9); Platelet Count 183 T/CUMM (130-400); Red Blood Count 5.54 MC/CUMM (3.8-5.5); Red Cell Distribution Width 13.7 % (9.3-17.3); White Blood Count 3.2 T/CUMM (4-12)
[2017-04-06 12:30] LABS: Lactic Acid 1.1 MMOL/L (0.4-2.0)
[2017-04-06 12:34] LABS: Albumin 3.7 G/DL (3.4-5.0); Bilirubin,Total 0.5 MG/DL (0.2-1.0); Calcium 8.9 MG/DL (8.5-10.1); Magnesium 2.2 MG/DL (1.8-2.4); Osmolality,Calculated 266.1 MOS/KG (273-304); Total Protein 8.7 G/DL (6.4-8.3)
[2017-04-06 12:58] LABS: Lymphocytes 36 % (20-55); Poikilocytosis Slight; Segmented Neutrophils 56 % (50-85); Total Cells Counted 100
[2017-04-06 12:59] LABS: Platelet Estimate Adequate
--- NOTE | 2017-04-06 14:43 | Hospitalist History & Physical ---
<Jana Ferguson - Last Filed: 04/06/17 14:05> Assessment and Plan - Time spent with patient Time spent with patient: Greater than 30 minutes (1) COPD exacerbation Status: Acute Assessment and plan: 61-year-old white male with history of HIV, tobacco and substance abuse admitted by the hospitalist with COPD exacerbation and hypertensive urgency. Patient will be admitted on a monitored bed for observation overnight. He will be given breathing treatments, steroids, and antibiotics. We will also give him some medication to bring his blood pressure down and monitor this since patient does not have a history of hypertension. Have discussed the patient with Dr. Bartholomew who has set the patient up with an HIV specialist in [place] and she states he needs to follow-up with his doctor. She states she cannot start his antivirals in the hospital. Dr. Gleason will see and examined patient and further recommendations to follow. We will also get a CT of the chest to evaluate the lung nodule seen on chest x-ray. Current Visit: Yes (2) Hypertensive urgency Status: Acute Current Visit: Yes (3) HIV disease Status: Chronic Current Visit: No (4) Tobacco abuse Status: Acute Current Visit: Yes (5) Substance abuse Status: Acute Current Visit: Yes History of Present Illness Chief complaint: Chest tightness History of present illness: Mr. Winters is a 61 year old white male with history of drug abuse and HIV presenting to the ED with a 3 day history of increasing chest tightness and shortness of breath. Patient had previously been admitted in January of this year with pneumonia. He was started on antibiotics and breathing treatments along with steroids. Dr. Bartholomew saw the patient at that time and felt it was not pneumocystic cranii pneumonia due to his CD4 counts not less than 200. Patient's condition improved and he was discharged home on azithromycin and he followed up with Dr. Quinn. Due to insurance Dr. Quinn set him up with an appointment for HIV specialist in [place] that the patient never followed up with. Patient denies fevers, headache, dysphasia, stabbing chest pain, cough , abdominal pain, or lower extremity edema. He is afebrile, pulse rate in the low 100s and he is hypertensive at 142/107. His WBCs are low at 3.2, troponins normal, and BNP is pending. Chest x-ray shows severe COPD with cardiomegaly and a possible pulmonary nodule at the left lung base. After discussion with Dr. Bhagat the ED physician and Dr. Gleason the admitting hospitalist, it was agreed patient would be admitted for further evaluation and treatment. Home Medications Medication Instructions Recorded Confirmed Type No Known Home Medications [No 04/06/17 04/06/17 History Known Home Medications] Allergies Allergy/AdvReac Type Severity Reaction Status Date / Time PACHECO OIL Allergy ANAPHYLAXIS Uncoded 04/06/17 11:27 Medical,Surgical,& Family Hx - Medical History Respiratory: History of: Pneumonia (pcp x2) Reproductive: Reports: Sexually Transmitted Disease (HIV x 19 years) Other: History of: HIV - Surgical History Cardiac Surgeries: Patient Denies: Cardiac Catheterization Abdominal Surgeries: Patient denies: Abdominal Surgery - Family History Family History: Denies;: Family Diabetes - Social History Smoking Status: Current every day smoker Have you smoked in the last 12 months: Yes Type of Drug Use: Marijuana, Methamphetamine Marital Status: Single Lives With:: Alone Functional capacity: independent ambulation Review of systems: A complete 10 system review of systems was obtained and pertinent positives and negatives per HPI Exam - Constitutional Vitals: Period Temp Pulse Resp BP Sys/Calhoun Pulse Ox Last 24 Hr 98.5 F-98.5 F 92-106 24-24 142-167/107-121 95-95 Exam: Constitutional System: No distress. No tremulousness. Head: Normocephalic, atraumatic. Ears, Nose and Throat System: No evidence of Otitis or Mastoiditis. No epistaxis or discharge Eyes System: Pupils equal, round, and reactive. Extraocular muscles intact. Neck: Supple, without adenopathy, No jugular venous distention. No thyromegaly, neck mass, or prior surgery apparent. Respiratory System: Chest clear to auscultation. Cardiovascular System: Heart with regular rate and rhythm. No murmur. GI System: Abdomen soft, nontender. Normo active bowel sounds present. Musculoskeletal System: limbs with no pedal edema. Full distal pulses. Neurological System: No discernable sensory deficit. No aphasia Psychiatric System: Conversation is rational Results - Labs CBC & BMP: 04/06/17 11:37 04/06/17 11:37 Lab Results: I have reviewed the past 24 hour labs - EKG EKG shows: sinus rhythm - Impressions Sinus rhythm with occasional supraventricular premature complexes, left atrial enlargement, left ventricular hypertrophy with repolarization abnormality - Diagnostic Findings Procedure: Chest x-ray: report reviewed by me (Severe COPD. Cardiomegaly. Possible pulmonary nodule at left lung base.) <Dylan Gleason - Last Filed: 04/06/17 17:10> History of Present Illness History of present illness: Patient seen and examined independently of NITA Ferguson, agree with history, assessment and plan as documented. Patient with history of HIV, not currently being followed by an ID doctor, presents with shortness of breath. Will treat as COPD exacerbation. Will check LDH. CXR with possible pulmonary nodule. CT chest. Exam - Constitutional Vitals: Period Temp Pulse Resp BP Sys/Calhoun Pulse Ox Last 24 Hr 98.2 F-98.5 F 92-106 18-24 142-167/107-121 92-95 Results - Labs CBC & BMP: 04/06/17 11:37 04/06/17 11:37
[2017-04-06] MEDS ORDERED: NICOTINE 21 MG/24 HR PATCH TRANSDERM PRN (14:57)
[2017-04-06] MEDS ORDERED: ZALEPLON 5 MG CAPSULE PO PRN (14:57)
[2017-04-06] MEDS ORDERED: DOCUSATE SODIUM 100 MG CAPSULE PO PRN (14:57)
[2017-04-06] MEDS ORDERED: MORPHINE 2 MG/1 ML SYRINGE IV PRN (14:57)
[2017-04-06] MEDS ORDERED: diphenhydrAMINE CAP 25 MG CAPSULE PO PRN (14:57)
[2017-04-06] MEDS ORDERED: ACETAMINOPHEN 325 MG TABLET PO PRN ×2 (14:57)
[2017-04-06] MEDS ORDERED: guaiFENesin/DM ER 600-30 MG TABLET PO PRN (14:57)
[2017-04-06] MEDS ORDERED: ONDANSETRON 4 MG/2 ML VIAL IV PRN (14:57)
[2017-04-06] MEDS: ENOXAPARIN 40 MG/0.4 ML SYRINGE SUBCUT SCH (15:56)
[2017-04-06] MEDS: predniSONE 20 MG TABLET PO SCH (15:56)
[2017-04-06] MEDS: PANTOPRAZOLE 40 MG TABLET PO SCH (15:56)
--- NOTE | 2017-04-06 15:58 | CT Report ---
CT chest w con Indication: Pulmonary nodule. CT CHEST WITH CONTRAST DLP: 253 mGy*cm. One or more of the following dose reduction techniques was used: Automated exposure control, adjustment of the mA and/or kV according the patient size, or use of iterative reconstruction techniques. Comparison: None Technique: Axial CT images of the chest were obtained after the IV administration of Omnipaque 350, 100 cc. Findings: Mild cardiomegaly is present. Mediastinal lymphadenopathy is present with several nodes that measure 10 mm short axis.. Subcentimeter nodes are present in both axilla. Mildly enlarged bilateral hilar nodes are present, largest is on the right measuring 14 mm short axis. Lungs demonstrate diffuse parenchymal coarsening with extensive peribronchial thickening and subpleural septal thickening extending to the periphery. There is some dependent atelectasis bilaterally as well is scarring of both lung bases. Mild bronchiectasis the right middle lobe noted. No areas of dense consolidation are shown. No mass or significant nodules are demonstrated. Pleural spaces are clear. Limited views of the upper abdomen appear grossly benign. There is a 18 mm left renal cyst present. No destructive bone lesions. Impression: 1. No pulmonary nodule identified. 2. Mild cardiomegaly. 3. Diffuse relatively significant interstitial lung disease consisting of bronchial wall thickening, bronchiectasis the right middle lobe, and markedly coarsened interstitial septa throughout both lung kaiser. Suspect primarily interstitial edema which could be secondary to CHF. However, cannot exclude bronchitis, bronchiolitis, and diffuse but early idiopathic pulmonary fibrosis. 4. Left renal cyst. PROCEDURE INTERPRETED AT [facility] DEPARTMENT OF RADIOLOGY Final Report Signed by: Shaw Vera M.D.
[2017-04-06] MEDS: SODIUM CHLORIDE 0.9% 1,000 ML IV SCH (16:04)
[2017-04-06] MEDS: cefTRIAXone 1,000 MG in SODIUM CHLORIDE 0.9% 100 ML IV SCH (16:04)
[2017-04-06] MEDS: FLUTICASONE/SALMETEROL 250-50 DISKUS 14 DOSE INH SCH ×2 (17:47→21:40)
[2017-04-06] MEDS: ALBUTEROL/IPRATROPIUM 3 ML NEB RESP TX SCH (20:03)
[2017-04-07] MEDS: ALBUTEROL/IPRATROPIUM 3 ML NEB RESP TX SCH ×4 (00:20→20:04)
[2017-04-07 04:54] LABS: Hematocrit 43.1 VOL% (42.0-52.0); Hemoglobin 14.9 GM/DL (14.0-18.0); Immature Granulocytes % 0.4 %; Immature Granulocytes Absolute 0.01 #; Lymphocytes # 0.8 10*3/uL (1.4-4.0); Lymphocytes % 31.4 % (21.2-54.2); Mean Corpuscular HGB Conc 34.6 GM/DL (32-36); Mean Corpuscular Hemoglobin 29 PG (27-34); Mean Platelet Volume 10.9 FL (9.6-12.0); Monocytes # 0.2 10*3/uL (0.11-0.8); Monocytes % 8.2 % (1.7-12.7); Neutrophils # 1.5 10*3/uL (1.4-7.4); Platelet Count 179 T/CUMM (130-400); Red Blood Count 5.07 MC/CUMM (3.8-5.5); Red Cell Distribution Width 13.7 % (9.3-17.3); White Blood Count 2.5 T/CUMM (4-12)
[2017-04-07 05:13] LABS: Hypochromasia 1+
[2017-04-07 05:14] LABS: Microcytosis 1+; Platelet Estimate Adequate
[2017-04-07] MEDS: SODIUM CHLORIDE 0.9% 1,000 ML IV SCH ×2 (05:52→18:30)
--- NOTE | 2017-04-07 07:28 | EKG Report ---
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
[2017-04-07] MEDS: FLUTICASONE/SALMETEROL 250-50 DISKUS 14 DOSE INH SCH ×2 (09:06→20:53)
[2017-04-07] MEDS: predniSONE 20 MG TABLET PO SCH (09:06)
[2017-04-07] MEDS: PANTOPRAZOLE 40 MG TABLET PO SCH (09:06)
[2017-04-07] MEDS: cefTRIAXone 1,000 MG in SODIUM CHLORIDE 0.9% 100 ML IV SCH (15:12)
[2017-04-07] MEDS: ENOXAPARIN 40 MG/0.4 ML SYRINGE SUBCUT SCH (15:12)
--- NOTE | 2017-04-07 15:16 | Hospitalist Progress Note ---
Assessment and Plan (1) Interstitial pneumonia Status: Acute Assessment and plan: I am going to start the patient on Septra double strength 2 twice daily and moderate dose oral prednisone. We will continue with beta agonist nebulizer occasionally and reevaluate dyspnea tomorrow. The patient does not have much wheezing at the present time. Current Visit: No (2) HIV disease Status: Chronic Current Visit: No (3) Dyspnea Status: Acute Current Visit: Yes Hospitalist: Subjective Interval history: The patient is a 61-year-old man with history of HIV infection over the last 25 years. The patient states that he has had pneumocystis pneumonia on 2 previous occasions. The patient has been on antiretroviral regimen until about a year ago. The patient now presents to the hospital with shortness of breath and cough. Chest x-ray shows interstitial pattern and CT scan confirmed interstitial pneumonia. The initial chest x-ray was concerning for left lower lobe nodule but CT scan does not reveal a similar finding. The patient does not have lymphopenia. I think that he does have recrudescence of pneumocystis pneumonia causing his symptoms. The patient has tolerated Septra in the past. Exam - Constitutional Vitals: Period Temp Pulse Resp BP Sys/Calhoun Pulse Ox Last 24 Hr 96.2 F-99.9 F 53-108 16-24 118-143/71-94 84-100 Exam: Constitutional System: Mild distress. Diaphoretic and warm to touch. No tremulousness. Head: Normocephalic, atraumatic. Ears, Nose and Throat System: No evidence of Otitis or Mastoiditis. No epistaxis or discharge Eyes System: Pupils equal, round, and reactive. Extraocular muscles intact. Neck: Supple, without adenopathy, No jugular venous distention. No thyromegaly , neck mass, or prior surgery apparent. Respiratory System: Chest moderate crepitance throughout the lung to auscultation. Cardiovascular System: Heart with regular rate and rhythm. No murmur. GI System: Abdomen soft, nontender. Normo active bowel sounds present. Musculoskeletal System: limbs with no pedal edema. Full distal pulses. Neurological System: No discernable sensory deficit. No aphasia Psychiatric System: Conversation is rational Results - Labs CBC & BMP: 04/07/17 03:44 04/06/17 11:37 Lab Results: I have reviewed the past 24 hour labs - Diagnostic Findings Procedure: Chest x-ray: image reviewed by me (Prominent interstitial pattern to chest x-ray)
[2017-04-07] MEDS: AZITHROMYCIN 250 MG TABLET PO SCH (16:17)
--- NOTE | 2017-04-07 18:08 | ECHO Report ---
Duc Winters Exam Date: 04/07/2017 08:48 Referring Physician: Technologist: Ally Riggins Age: 61 Ht (in): 58 Wt (lb): 155 Gender: M Exam Location: [facility] Echo Indications: Chest pain, COPD, SOB, HTN, HIV, smoker, substance abuse BP: 118 / 74 HR: 53 Rhythm: bradycardia Technical Quality: IMPRESSIONS Left ventricular ejection fraction is estimated at 20 % with global hypokinesis. Grade II diastolic dysfunction. Mildly thickened mitral valve with mild mitral regurgitation. There is a trivial pericardial effusion. There is a pleural effusion. MEASUREMENTS (Male / Female) Normal Values 2D ECHO LV Diastolic Diameter PLAX 5.7 cm 4.2 - 5.9 / 3.9 - 5.3 cm LV Systolic Diameter PLAX 4.7 cm LV Fractional Shortening PLAX 18.1 % IVS Diastolic Thickness 1.1 cm 0.6 - 1.0 / 0.6 - 0.9 cm LVPW Diastolic Thickness 1.2 cm 0.6 - 1.0 / 0.6 - 0.9 cm Aortic Root Diameter 3.1 cm LA Systolic Diameter LX 4.0 cm 3.0 - 4.0 / 2.7 - 3.8 cm FINDINGS Left Ventricle Moderately increased left ventricular cavity size. Mild concentric left ventricular hypertrophy with moderate diastolic dysfunction. Left ventricular ejection fraction is estimated at 20 %. Grade II diastolic dysfunction. Right Ventricle Normal right ventricular size. Right Atrium Normal right atrial size. Left Atrium Moderately increased left atrial size. Mitral Valve Mildly thickened mitral valve with mild mitral regurgitation. Aortic Valve Mild aortic valve sclerosis. Trace aortic valve regurgitation. Tricuspid Valve Morphologically normal tricuspid valve. Trace tricuspid valve regurgitation. Pulmonic Valve Morphologically normal pulmonic valve. Mild pulmonary valve regurgitation. Pericardium There is a trivial pericardial effusion. There is a pleural effusion. Aorta Normal size aortic root and proximal ascending aorta. Lucy Rodriguez (Electronically Signed) Final Date: 07 April 2017 18:06
[2017-04-08] MEDS: ALBUTEROL/IPRATROPIUM 3 ML NEB RESP TX SCH ×4 (00:31→19:07)
[2017-04-08] MEDS: SODIUM CHLORIDE 0.9% 1,000 ML IV SCH ×2 (06:35→13:10)
[2017-04-08] MEDS ORDERED: NIFEdipine 10 MG CAPSULE PO PRN (07:29)
[2017-04-08] MEDS: predniSONE 20 MG TABLET PO SCH (08:26)
[2017-04-08] MEDS: PANTOPRAZOLE 40 MG TABLET PO SCH (08:27)
[2017-04-08] MEDS: AZITHROMYCIN 250 MG TABLET PO SCH (08:27)
[2017-04-08] MEDS: FLUTICASONE/SALMETEROL 250-50 DISKUS 14 DOSE INH SCH ×2 (08:27→20:46)
--- NOTE | 2017-04-08 11:00 | Pulmonology Consult Note ---
History of Present Illness Chief complaint: S OB. HIV. Abnormal chest x-ray. History of present illness: Mr. Winters is a 61 year old white male whom I been asked see in pulmonary consultation for evaluation and treatment This patient is HIV positive. He has a history of drug abuse. He was admitted with chest tightness and increased shortness of breath that is been present for approximately 3 days. Patient denies any significant orthopnea. He says he feels like he cannot get a deep breath he has had no peripheral edema. He absolutely denies any chest pain other than a fullness. Patient denies cough he has no sputum production he denies solid dysphasia and he denies reflux. He denies bleeding from any site. The remainder review of systems is negative Allergies. Ohara's oil. Home medicines. See below Hospital medicines. See below Past history HIV positive. Pneumocystis carinii pneumonia 2. Hospitalization here in January 2017 for pneumonia. Family history. Positive for diabetes. Social history. Smokes every day. History of use of marijuana and methamphetamines. Not . Chest x-ray. My interpretation.04/06/2017. Cardiomegaly. Engorged central vasculature perihilar increase in interstitial markings all compatible with congestive heart failure. There is blunting of both costophrenic angles. CT of the chest. Changes compatible with pulmonary edema. Will watch for other causes Echocardiogram. 04/06/2017. Left ventricular ejection fraction is 20% with global hypokinesis and +2 diastolic dysfunction. Mildly thickened mitral valve with mild mitral valve prolapse. Trivial pericardial effusion is seen. Pleural effusion was seen. Lab. Natruretic peptide is 1648. Creatinine is 0.90 with a BUN of 5 electrolytes were normal except for a sodium of 135. White blood cell counts have varied between 3000 202,500. H&H is 14.9/43.1. Platelets are 179,000. Magnesium is normal. Liver function tests are normal. An old DH is 195. Total protein is elevated at 8.7 with a globulin of 5.0 albumin is normal at 3.7. No other labs available. Microbiology. No positive culture Vital signs. See below. Afebrile. Has had one elevation of temperature to 99.9 04/07/2017. Psychiatric. Oriented 3 General. N nearly flat in bed in no apparent distress Face is symmetrical. No swelling of lips or tongue. Neck is symmetrical. No meningismus Lymphatics no submandibular cervical supraclavicular or epitrochlear adenopathy. Heart. Lateral PMI Chest. Stiff breath sounds which are probably rales. Abdomen. Nondistended Lower extremities no edema. Neurologic. Cranial nerves are intact long track motor functions intact. Sensory exam was not done in gait was not tested The remainder the physical exam is negative Impression. 1. Acute congestive heart failure 2. Heart disease with ejection fraction of 20%. 3. HIV positive. 4. Tobacco abuse 5. History of drug abuse 6. See past history Plan. 1. Lasix 30 mg IV push every 12 hours begin nail 2. Daily chest x-ray, BMP and BNP. 3. Consider cardiology consultation. 4. She will Home Medications Medication Instructions Recorded Confirmed Type No Known Home Medications [No 04/06/17 04/06/17 History Known Home Medications] Allergies Allergy/AdvReac Type Severity Reaction Status Date / Time OHARA OIL Allergy ANAPHYLAXIS Uncoded 04/06/17 11:27 Exam (Pulmonay) H&P - Constitutional Vitals: Period Temp Pulse Resp BP Sys/Calhoun Pulse Ox Last 24 Hr 97.5 F-98.4 F 90-109 16-20 122-164/74-121 94-99 Medical,Surgical,& Family Hx - Medical History Respiratory: History of: Pneumonia (pcp x2) Reproductive: Reports: Sexually Transmitted Disease (HIV x 19 years) Other: History of: HIV - Surgical History Cardiac Surgeries: Patient Denies: Cardiac Catheterization Abdominal Surgeries: Patient denies: Abdominal Surgery - Family History Family History: Denies;: Family Diabetes - Social History Smoking Status: Smoker, status unknown Frequency of Alcohol Use: None Type of Drug Use: Marijuana, Methamphetamine Results - Labs CBC & BMP: 04/07/17 03:44 04/06/17 11:37
[2017-04-08] MEDS: POTASSIUM CHLORIDE 10 MEQ TABLET PO SCH ×2 (11:10→20:45)
[2017-04-08] MEDS: FUROSEMIDE 20 MG/2 ML VIAL IV SCH ×2 (11:11→23:02)
--- NOTE | 2017-04-08 13:36 | Hospitalist Progress Note ---
Assessment and Plan (1) Interstitial pneumonia Status: Acute Assessment and plan: I am going to continue with Septra but discontinue azithromycin and prednisone. The patient will continue on diuretic. We note that echocardiogram reveals ejection fraction of 20% consistent with systolic congestive heart failure acute on chronic. Goal of care is for discharge home tomorrow. Current Visit: No (2) HIV disease Status: Chronic Current Visit: No (3) Dyspnea Status: Acute Current Visit: Yes Hospitalist: Subjective Interval history: The patient had increasing shortness of breath this morning. It has improved after diuresis was begun. The patient looks less flushed and afebrile today. He has less sputum production. Exam - Constitutional Vitals: Period Temp Pulse Resp BP Sys/Calhoun Pulse Ox Last 24 Hr 97.7 F-99.2 F 90-109 16-20 122-164/74-121 94-99 Exam: Constitutional System: Minimal distress. No longer diaphoretic and warm to touch. No tremulousness. Head: Normocephalic, atraumatic. Ears, Nose and Throat System: No evidence of Otitis or Mastoiditis. No epistaxis or discharge Eyes System: Pupils equal, round, and reactive. Extraocular muscles intact. Neck: Supple, without adenopathy, No jugular venous distention. No thyromegaly , neck mass, or prior surgery apparent. Respiratory System: Chest with less crepitance throughout the lung to auscultation. Cardiovascular System: Heart with regular rate and rhythm. No murmur. GI System: Abdomen soft, nontender. Normo active bowel sounds present. Musculoskeletal System: limbs with no pedal edema. Full distal pulses. Neurological System: No discernable sensory deficit. No aphasia Psychiatric System: Conversation is rational Results - Labs CBC & BMP: 04/07/17 03:44 04/06/17 11:37 Lab Results: I have reviewed the past 24 hour labs
[2017-04-08] MEDS: cefTRIAXone 1,000 MG in SODIUM CHLORIDE 0.9% 100 ML IV SCH (16:09)
[2017-04-08] MEDS: ENOXAPARIN 40 MG/0.4 ML SYRINGE SUBCUT SCH (16:09)
[2017-04-09] MEDS: ALBUTEROL/IPRATROPIUM 3 ML NEB RESP TX SCH ×2 (00:11→07:03)
[2017-04-09 05:38] LABS: Calcium 8.6 MG/DL (8.5-10.1); Magnesium 2.4 MG/DL (1.8-2.4); Osmolality,Calculated 279.4 MOS/KG (273-304); Potassium 4.8 MMOL/L (3.5-5.1)
[2017-04-09 08:23] VITALS: BP 124/78
[2017-04-09] MEDS: PANTOPRAZOLE 40 MG TABLET PO SCH (08:55)
[2017-04-09] MEDS: FLUTICASONE/SALMETEROL 250-50 DISKUS 14 DOSE INH SCH (08:56)
[2017-04-09] MEDS: POTASSIUM CHLORIDE 10 MEQ TABLET PO SCH (08:56)
--- NOTE | 2017-04-09 09:27 | Discharge Summary ---
Hospital Course - Hospital Course Hospital Course: The patient was admitted to the hospital with shortness of breath, fever, diaphoresis. Chest x-ray revealed interstitial pattern and I felt it was consistent with pneumocystis pneumonia. The patient has history of HIV infection and previous 2 episodes of pneumocystis. The patient was started on Bactrim oral antibiotic and is improving. He has less fever and less sputum production and less shortness of breath. Echocardiogram revealed ejection fraction less than 20%. The patient was diuresed which also greatly improved his dyspnea. The patient had pulmonary consultation with Dr. Griffin. The patient is improved now ready for discharge home he has no current primary care physician but has been making arrangements for an HIV physician in [place]. I encouraged him to continue this arrangement. On the date of discharge, the chest has reduced crackles and the heart has regular rate and rhythm. Patient medications were reconciled upon admission, and again at the time of discharge. The patient was screened for tobacco use and found to be a current smoker. The patient was given 4 minutes of tobacco avoidance education. The patient's medical decsion maker is [themself], and when asked, they asked to be [Full code]. Discharge Time was 36 minutes, including final examination, evaluation and planning, education, reconciliation of medications, writing prescriptions, coordinating care with keycase assembler, and preparing discharge documentation. - Time spent with patient Time with patient DS: Greater than 30 minutes Diagnosis - Discharge Diagnosis (1) Interstitial pneumonia Status: Chronic (2) HIV disease Status: Chronic (3) Dyspnea Status: Resolved (4) Systolic CHF, acute Status: Chronic Discharge Plan - Discharge Data Disposition: Disch To Home/Self Care Condition at Discharge: Stable Discharge Diet: regular diet Activity: resume usual activities as tolerated - Discharge Medications New Lisinopril 5 mg PO DAILY #60 tablet Potassium Chloride Cap/Tab [K Dur] 10 meq PO DAILY #60 tablet Furosemide Tab [Lasix Tab] 40 mg PO DAILY #60 tablet Sulfameth/Trimeth 800-160 Tab [Bactrim DS Tab] 1 tablet PO BID #60 tablet - Follow Up or Referral Follow Up: Your,[facility] [Other] - 1 Month - Forms/Instructions Exam - Constitutional Vitals: Period Temp Pulse Resp BP Sys/Calhoun Pulse Ox Last 24 Hr 97.3 F-99.2 F 82-100 12-20 111-143/66-85 90-98 Discharge Results Procedures and tests throughout hospitalization: Pending Orders 04/06/17 12:00 Blood Culture Stat 04/09/17 04:00 XR chest 2V IN AM Labs on day of discharge: Labs from last 24 hours 04/09/17 04/09/17 04:48 04:48 Sodium 140 Potassium 4.8 Chloride 103 Carbon Dioxide 33 H Anion Gap 8.8 BUN 17 Creatinine 1.00 GFR Calculation 85 BUN/Creatinine Ratio 17.00 Glucose 89 Calculated Osmolality 279.4 Calcium 8.6 Magnesium 2.4 B-Natriuretic Peptide 600 H Preliminary micro results at discharge 04/06/17 12:00 Blood Culture - Preliminary Blood No growth at 1 day 04/06/17 12:00 Blood Culture - Preliminary Blood No growth at 1 day DS: Provider Date of admission: 04/06/17 13:24 Primary care physician: . No PCP Attending physician on admission: Dylan Gleason MD Consults: 04/08/17 07:30 Consult to Physician [CONS] Routine Comment: hypoxia, dyspnea Consulting Provider: Ciro Armijo Consult to Specialist Group: Pulmonology Person Notified: Todd Date Notified: 04/08/17 Time Notified: 07:40 Discharging clinician: Larry Dodson MD
--- NOTE | 2017-04-09 09:52 | XRay Report ---
XR chest 2V Indication: CHF, cardiomyopathy. Chest 2 views: Comparison 04/06/2017 shows continued cardiomegaly with thoracic aortic tortuosity. There is persistent reticular prominence of both lung kaiser diffusely, with some chronic interstitial scarring the central lungs and lung bases. This is all stable. Scattered calcified granulomata are unchanged as well. Impression: No change with continued evidence of CHF. PROCEDURE INTERPRETED AT [facility] DEPARTMENT OF RADIOLOGY Final Report Signed by: Shaw Vera M.D.
[2017-04-09] MEDS: FUROSEMIDE 20 MG/2 ML VIAL IV SCH (11:10)
--- NOTE | 2017-04-09 11:14 | Pulmonology Progress Note ---
Pulmonary - PN: Subj Interval history: RONDA Menchaca-, acting as scribe for Dr. Ciro Armijo Mr. Hackett is a 7-year-old white male who we saw in initial pulmonary consultation on 04/08/2017. At that time, our impressions were: 1. Acute congestive heart failure 2. Heart disease with ejection fraction of 20%. 3. HIV positive. 4. Tobacco abuse 5. History of drug abuse 6. See past history 04/09/2017. Patient's chest x-ray shows that his previously noted congestive heart failure is improved but not completely resolved. His BNP has fallen to 600. He states that his breathing is markedly improved, however. Again, echocardiogram done 04/06/2017 showed an ejection fraction of 20% with global hypokinesis and 2+ diastolic dysfunction. Nonetheless, the patient states that he is improved and is being discharged today. He states he does not have a panel builder. Medications have been reviewed. We made no changes. Labs been reviewed. Creatinine 1.00, BUN 17, electrolytes are normal Exam (Progress Note) - Constitutional Vitals: Period Temp Pulse Resp BP Sys/Calhoun Pulse Ox Last 24 Hr 97.3 F-99.2 F 82-100 12-20 111-143/66-85 90-98 Exam: Chest with decreased rales Heart with a lateral PMI Abdomen is nontender nondistended; bowel sounds positive 4 Lower extremities with nothing to suggest acute deep venous thrombophlebitis; no edema Psychiatric oriented 3 Neurologic long-term motor function is intact Plan: Your plans for discharge are noted. We will sign off. Please reconsult as needed. Results - Labs CBC & BMP: 04/07/17 03:44 04/09/17 04:48 Specialty Discharge - Follow Up or Referrals Follow up with: Your,[facility] [Other] - 1 Month
== END 2017-04-09 11:45 | disposition home or self-care (01) ==
LOC: N.ED 11:05 → N.EDINP 11:05 → SUATTDRO 13:24 → N.EDINP 14:38 → N.TELES 14:45
PROVIDERS: ADMIT Internal Medicine; ATTEND Internal Medicine

== ENCOUNTER 2017-12-03 18:30 | Inpatient (IN) ==
[2017-12-03] MEDS ORDERED: FUROSEMIDE 100 MG/10 ML VIAL IV STA (20:32)
[2017-12-03] MEDS: ALBUTEROL 2.5 MG/3 ML NEB RESP TX SCH ×3 (20:54→21:35)
[2017-12-03 21:04] LABS: Basophils % 0.2 % (0.0-0.8); Eosinophils % 0.2 % (0.00-10.9); Hematocrit 43.3 VOL% (42.0-52.0); Hemoglobin 15.1 GM/DL (14.0-18.0); Immature Granulocytes % 0.6 %; Immature Granulocytes Absolute 0.03 #; Lymphocytes # 1.1 10*3/uL (1.4-4.0); Lymphocytes % 23.2 % (21.2-54.2); Mean Corpuscular HGB Conc 34.9 GM/DL (32-36); Mean Corpuscular Hemoglobin 30 PG (27-34); Mean Corpuscular Volume 87.3 FL (87-102); Mean Platelet Volume 11.2 FL (9.6-12.0); Monocytes # 0.5 10*3/uL (0.11-0.8); Monocytes % 9.7 % (1.7-12.7); Neutrophils # 3.1 10*3/uL (1.4-7.4); Neutrophils % 66.1 % (38.7-73.9); Platelet Count 169 T/CUMM (130-400); Red Blood Count 4.96 MC/CUMM (3.8-5.5); Red Cell Distribution Width 15.8 % (9.3-17.3); White Blood Count 4.7 T/CUMM (4-12)
[2017-12-03 21:30] LABS: Albumin 3.2 G/DL (3.4-5.0); Bilirubin,Total 0.4 MG/DL (0.2-1.0); Calcium 8.3 MG/DL (8.5-10.1); Osmolality,Calculated 249.5 MOS/KG (273-304); Potassium 4.5 MMOL/L (3.5-5.1)
[2017-12-03] MEDS ORDERED: FUROSEMIDE 40 MG/4 ML VIAL ONE (21:37)
[2017-12-03 21:41] LABS: Troponin I Only 0.059 NG/ML (0.00-0.045)
[2017-12-03] MEDS ORDERED: cefTRIAXone 1,000 MG in SODIUM CHLORIDE 0.9% 100 ML IV STA (21:49)
[2017-12-03] MEDS ORDERED: ONDANSETRON 4 MG/2 ML VIAL IV PRN (22:13)
[2017-12-03] MEDS ORDERED: cefTRIAXone 1,000 MG VIAL ONE (22:24)
[2017-12-03 22:29] LABS: Giant Platelets Few; Platelet Estimate Normal; Polychromasia Few; Reactive Lymphocytes 3+
[2017-12-03] MEDS ORDERED: ENOXAPARIN 40 MG/0.4 ML SYRINGE ONE (22:32)
[2017-12-03] MEDS: ENOXAPARIN 40 MG/0.4 ML SYRINGE SUBCUT SCH (22:34)
[2017-12-03] MEDS ORDERED: ALBUTEROL/IPRATROPIUM 3 ML NEB RESP TX PRN (23:04)
[2017-12-04] MEDS: SULFAMETH/TRIMETH INJ 300 MG in DEXTROSE 5% 500 ML IV SCH ×3 (00:56→16:26)
[2017-12-04] MEDS: predniSONE 20 MG TABLET PO SCH ×3 (00:58→21:51)
[2017-12-04 05:06] LABS: Basophils % 0.2 % (0.0-0.8); Hematocrit 42.3 VOL% (42.0-52.0); Hemoglobin 14.8 GM/DL (14.0-18.0); Immature Granulocytes % 0.4 %; Immature Granulocytes Absolute 0.02 #; Lymphocytes # 0.9 10*3/uL (1.4-4.0); Lymphocytes % 17.5 % (21.2-54.2); Mean Corpuscular Hemoglobin 30 PG (27-34); Mean Corpuscular Volume 85.8 FL (87-102); Mean Platelet Volume 11.6 FL (9.6-12.0); Monocytes # 0.5 10*3/uL (0.11-0.8); Neutrophils # 3.5 10*3/uL (1.4-7.4); Neutrophils % 71.9 % (38.7-73.9); Platelet Count 159 T/CUMM (130-400); Red Blood Count 4.93 MC/CUMM (3.8-5.5); Red Cell Distribution Width 15.6 % (9.3-17.3); White Blood Count 4.9 T/CUMM (4-12)
[2017-12-04 05:42] LABS: Calcium 8.3 MG/DL (8.5-10.1); Osmolality,Calculated 263.5 MOS/KG (273-304); Potassium 4.3 MMOL/L (3.5-5.1)
[2017-12-04 07:09] LABS: Hypochromasia Slight
[2017-12-04] MEDS: FUROSEMIDE 40 MG/4 ML VIAL IV SCH ×2 (09:47→16:26)
[2017-12-04] MEDS: LISINOPRIL 10 MG TABLET PO SCH (09:47)
[2017-12-04] MEDS: PANTOPRAZOLE 40 MG TABLET PO SCH (09:47)
[2017-12-04] MEDS: LEVOFLOXACIN INJ 500 MG in PREMIX 1 EACH IV SCH (13:41)
[2017-12-04] MEDS: CARVEDILOL 3.125 MG TABLET PO SCH (21:51)
[2017-12-04] MEDS: ENOXAPARIN 40 MG/0.4 ML SYRINGE SUBCUT SCH (21:51)
[2017-12-05] MEDS: SULFAMETH/TRIMETH INJ 300 MG in DEXTROSE 5% 500 ML IV SCH ×2 (00:56→09:58)
[2017-12-05 05:28] LABS: Basophils % 0.2 % (0.0-0.8); Hematocrit 43.2 VOL% (42.0-52.0); Hemoglobin 14.6 GM/DL (14.0-18.0); Immature Granulocytes % 0.8 %; Immature Granulocytes Absolute 0.04 #; Lymphocytes # 0.7 10*3/uL (1.4-4.0); Mean Corpuscular HGB Conc 33.8 GM/DL (32-36); Mean Corpuscular Hemoglobin 30 PG (27-34); Mean Corpuscular Volume 88.9 FL (87-102); Mean Platelet Volume 11.7 FL (9.6-12.0); Monocytes # 0.4 10*3/uL (0.11-0.8); Monocytes % 7.7 % (1.7-12.7); Neutrophils # 4.2 10*3/uL (1.4-7.4); Neutrophils % 78.3 % (38.7-73.9); Platelet Count 168 T/CUMM (130-400); Red Blood Count 4.86 MC/CUMM (3.8-5.5); White Blood Count 5.3 T/CUMM (4-12)
[2017-12-05 05:51] LABS: Calcium 8.5 MG/DL (8.5-10.1); Osmolality,Calculated 269.2 MOS/KG (273-304); Potassium 5.8 MMOL/L (3.5-5.1)
[2017-12-05 07:01] LABS: Hypochromasia 2+
[2017-12-05] MEDS ORDERED: SODIUM POLYSTYRENE SULFATE 15 GM/60 ML BOTTLE PO ONE (09:23)
[2017-12-05] MEDS: FUROSEMIDE 40 MG/4 ML VIAL IV SCH ×2 (09:57→16:15)
[2017-12-05] MEDS: PANTOPRAZOLE 40 MG TABLET PO SCH (09:58)
[2017-12-05] MEDS: LISINOPRIL 10 MG TABLET PO SCH (09:58)
[2017-12-05] MEDS: CARVEDILOL 3.125 MG TABLET PO SCH ×2 (09:58→21:37)
[2017-12-05] MEDS: predniSONE 20 MG TABLET PO SCH ×2 (09:58→21:37)
[2017-12-05] MEDS: LEVOFLOXACIN INJ 500 MG in PREMIX 1 EACH IV SCH (10:38)
[2017-12-05] MEDS: ENOXAPARIN 40 MG/0.4 ML SYRINGE SUBCUT SCH (21:36)
[2017-12-05] MEDS: SULFAMETHOX/TRIMETHOPRIM 800-160 MG TABLET PO SCH (21:37)
[2017-12-06 04:26] LABS: Hemoglobin 14.1 GM/DL (14.0-18.0); Immature Granulocytes % 0.5 %; Immature Granulocytes Absolute 0.03 #; Lymphocytes # 0.7 10*3/uL (1.4-4.0); Lymphocytes % 11.5 % (21.2-54.2); Mean Corpuscular HGB Conc 32.8 GM/DL (32-36); Mean Corpuscular Hemoglobin 30 PG (27-34); Mean Corpuscular Volume 91.1 FL (87-102); Mean Platelet Volume 10.6 FL (9.6-12.0); Monocytes # 0.4 10*3/uL (0.11-0.8); Monocytes % 6.7 % (1.7-12.7); Neutrophils # 4.6 10*3/uL (1.4-7.4); Neutrophils % 81.3 % (38.7-73.9); Platelet Count 180 T/CUMM (130-400); Red Blood Count 4.72 MC/CUMM (3.8-5.5); Red Cell Distribution Width 15.8 % (9.3-17.3); White Blood Count 5.6 T/CUMM (4-12)
[2017-12-06 04:52] LABS: Calcium 8.5 MG/DL (8.5-10.1); Hypochromasia Slight; Osmolality,Calculated 280.8 MOS/KG (273-304); Platelet Estimate Normal; Potassium 4.2 MMOL/L (3.5-5.1); Target Cells Few
[2017-12-06 04:53] LABS: Giant Platelets Few
[2017-12-06] MEDS: PANTOPRAZOLE 40 MG TABLET PO SCH (09:06)
[2017-12-06] MEDS: predniSONE 20 MG TABLET PO SCH ×2 (09:06→22:43)
[2017-12-06] MEDS: SULFAMETHOX/TRIMETHOPRIM 800-160 MG TABLET PO SCH ×3 (09:06→22:43)
[2017-12-06] MEDS: CARVEDILOL 3.125 MG TABLET PO SCH ×2 (09:06→22:44)
[2017-12-06] MEDS: LISINOPRIL 10 MG TABLET PO SCH (09:06)
[2017-12-06] MEDS: FUROSEMIDE 40 MG/4 ML VIAL IV SCH ×2 (09:07→16:05)
[2017-12-06] MEDS: LEVOFLOXACIN INJ 500 MG in PREMIX 1 EACH IV SCH (11:22)
[2017-12-06] MEDS: MONTELUKAST 10 MG TABLET PO SCH ×2 (11:23→22:45)
[2017-12-06 12:58] LABS: Barbiturates Screen,Urine Negative (Negative); Benzodiazepines Screen,Urine Negative (Negative); Cannabinoid Screen,Urine Negative (Negative); Opiate Screen,Urine Negative (Negative); Phencyclidine Screen,Urine Negative (Negative)
[2017-12-06] MEDS ORDERED: FLUCONAZOLE 100 MG TABLET PO SCH (14:30)
[2017-12-06] MEDS: FLUCONAZOLE 100 MG TABLET PO SCH (16:05)
[2017-12-06] MEDS: ENOXAPARIN 40 MG/0.4 ML SYRINGE SUBCUT SCH (22:44)
[2017-12-07 04:32] LABS: Hematocrit 43.9 VOL% (42.0-52.0); Hemoglobin 14.6 GM/DL (14.0-18.0); Immature Granulocytes % 0.4 %; Immature Granulocytes Absolute 0.02 #; Lymphocytes # 0.9 10*3/uL (1.4-4.0); Lymphocytes % 15.1 % (21.2-54.2); Mean Corpuscular HGB Conc 33.3 GM/DL (32-36); Mean Corpuscular Hemoglobin 30 PG (27-34); Mean Corpuscular Volume 90.1 FL (87-102); Mean Platelet Volume 10.8 FL (9.6-12.0); Monocytes # 0.4 10*3/uL (0.11-0.8); Monocytes % 7.8 % (1.7-12.7); Neutrophils # 4.3 10*3/uL (1.4-7.4); Neutrophils % 76.7 % (38.7-73.9); Platelet Count 197 T/CUMM (130-400); Red Blood Count 4.87 MC/CUMM (3.8-5.5); Red Cell Distribution Width 15.9 % (9.3-17.3); White Blood Count 5.6 T/CUMM (4-12)
[2017-12-07 05:04] LABS: Calcium 8.4 MG/DL (8.5-10.1); Osmolality,Calculated 282.7 MOS/KG (273-304); Potassium 4.5 MMOL/L (3.5-5.1)
[2017-12-07 06:18] LABS: Giant Platelets Few; Lymphocytes 16 % (20-55); Platelet Estimate Normal; Segmented Neutrophils 76 % (50-85); Total Cells Counted 100
[2017-12-07] MEDS: LISINOPRIL 10 MG TABLET PO SCH (08:53)
[2017-12-07] MEDS: PANTOPRAZOLE 40 MG TABLET PO SCH (08:54)
[2017-12-07] MEDS: CARVEDILOL 3.125 MG TABLET PO SCH ×2 (08:54→22:04)
[2017-12-07] MEDS: MONTELUKAST 10 MG TABLET PO SCH ×2 (08:55→22:03)
[2017-12-07] MEDS: SULFAMETHOX/TRIMETHOPRIM 800-160 MG TABLET PO SCH ×3 (08:55→22:03)
[2017-12-07] MEDS: predniSONE 20 MG TABLET PO SCH ×2 (08:56→22:03)
[2017-12-07] MEDS: FUROSEMIDE 40 MG/4 ML VIAL IV SCH (08:57)
[2017-12-07] MEDS: LEVOFLOXACIN INJ 500 MG in PREMIX 1 EACH IV SCH (10:50)
[2017-12-07] MEDS: NICOTINE 21 MG/24 HR PATCH TRANSDERM SCH (13:32)
[2017-12-07] MEDS: FLUCONAZOLE 100 MG TABLET PO SCH (16:32)
[2017-12-07] MEDS: FUROSEMIDE 40 MG TABLET PO SCH (16:33)
[2017-12-07 21:46] LABS: % CD4 (T Cells) 15 % (32-64); % CD8 (T Cells) 49 % (8-40); 4/8 Ratio 0.3 (>=0.9)
[2017-12-07] MEDS: ENOXAPARIN 40 MG/0.4 ML SYRINGE SUBCUT SCH (22:03)
[2017-12-08 05:52] LABS: Calcium 8.3 MG/DL (8.5-10.1); Potassium 5.4 MMOL/L (3.5-5.1)
[2017-12-08] MEDS: SULFAMETHOX/TRIMETHOPRIM 800-160 MG TABLET PO SCH ×3 (09:27→21:37)
[2017-12-08] MEDS: LISINOPRIL 10 MG TABLET PO SCH (09:28)
[2017-12-08] MEDS: CARVEDILOL 6.25 MG TABLET PO SCH ×2 (09:28→21:38)
[2017-12-08] MEDS: PANTOPRAZOLE 40 MG TABLET PO SCH (09:28)
[2017-12-08] MEDS: predniSONE 20 MG TABLET PO SCH ×2 (09:28→21:37)
[2017-12-08] MEDS: FUROSEMIDE 40 MG TABLET PO SCH ×2 (09:28→15:58)
[2017-12-08] MEDS: MONTELUKAST 10 MG TABLET PO SCH ×2 (09:28→21:37)
[2017-12-08] MEDS: NICOTINE 21 MG/24 HR PATCH TRANSDERM SCH (10:17)
[2017-12-08] MEDS ORDERED: SODIUM POLYSTYRENE SULFATE 15 GM/60 ML BOTTLE PO STA (11:04)
[2017-12-08] MEDS: LEVOFLOXACIN INJ 500 MG in PREMIX 1 EACH IV SCH (11:52)
[2017-12-08] MEDS ORDERED: SODIUM POLYSTYRENE SULFATE 15 GM/60 ML BOTTLE PO ONE (14:10)
[2017-12-08] MEDS: FLUCONAZOLE 100 MG TABLET PO SCH (14:38)
[2017-12-08] MEDS: ENOXAPARIN 40 MG/0.4 ML SYRINGE SUBCUT SCH (21:37)
[2017-12-09 05:33] LABS: Calcium 8.2 MG/DL (8.5-10.1); Osmolality,Calculated 280.8 MOS/KG (273-304); Potassium 4.5 MMOL/L (3.5-5.1)
[2017-12-09] MEDS ORDERED: LISINOPRIL 10 MG TABLET PO SCH (09:00)
[2017-12-09] MEDS: predniSONE 20 MG TABLET PO SCH (09:14)
[2017-12-09] MEDS: SULFAMETHOX/TRIMETHOPRIM 800-160 MG TABLET PO SCH (09:14)
[2017-12-09] MEDS: FUROSEMIDE 40 MG TABLET PO SCH (09:15)
[2017-12-09] MEDS: NICOTINE 21 MG/24 HR PATCH TRANSDERM SCH (09:15)
[2017-12-09] MEDS: CARVEDILOL 6.25 MG TABLET PO SCH (09:15)
[2017-12-09] MEDS: MONTELUKAST 10 MG TABLET PO SCH (09:16)
[2017-12-09] MEDS: PANTOPRAZOLE 40 MG TABLET PO SCH (09:16)
[2017-12-09 12:41] VITALS: BP 124/59
== END 2017-12-09 12:46 | disposition home or self-care (01) | DRG 892 ==
LOC: N.ED 18:30 → N.EDINP 22:13 → SUATTDRO 22:13 → N.TELES 22:48
PROVIDERS: ADMIT Hospitalist; ATTEND Internal Medicine

== ENCOUNTER 2019-04-08 12:09 | Inpatient (IN) ==
[2019-04-08 14:45] LABS: Basophils # 0.2 10*3/uL (0.0-0.2); Basophils % 0.7 % (0.0-0.8); Hematocrit 50.8 VOL% (42.0-52.0); Hemoglobin 17.5 GM/DL (14.0-18.0); Immature Granulocytes % 2.1 %; Immature Granulocytes Absolute 0.56 #; Lymphocytes # 1.6 10*3/uL (1.4-4.0); Mean Corpuscular HGB Conc 34.4 GM/DL (32-36); Mean Platelet Volume 10.2 FL (9.6-12.0); Neutrophils % 83.2 % (38.7-73.9); Platelet Count 153 T/CUMM (130-400); Red Blood Count 5.35 MC/CUMM (3.8-5.5); Red Cell Distribution Width 13.1 % (9.3-17.3); White Blood Count 27.2 T/CUMM (4-12)
[2019-04-08 14:59] LABS: ABG Base Excess 3.3 MMOL/L (-2.5-2.5); ABG HCO3 27.1 MMOL/L (20-26); ABG Oxygen Saturation 88.8 % (95-100); ABG PCO2 34.7 MM HG (35-48); ABG PH 7.485 (7.35-7.45); ABG PO2 51.7 MM HG (80-95); ABG TCO2 21.3 MMOL/L (23-27); Allen Test Positive
[2019-04-08] MEDS ORDERED: AZITHROMYCIN INJ 500 MG in SODIUM CHLORIDE 0.9% 250 ML IV STA (15:00)
[2019-04-08] MEDS ORDERED: VANCOMYCIN INJ 1,000 MG in SODIUM CHLORIDE 0.9% 250 ML IV STA ×2 (15:00→15:24)
[2019-04-08 15:03] LABS: Albumin 3.2 G/DL (3.4-5.0); Bilirubin,Total 0.7 MG/DL (0.2-1.0); Calcium 9.2 MG/DL (8.5-10.1); Osmolality,Calculated 273.4 MOS/KG (273-304); Total Protein 8.2 G/DL (6.4-8.3)
[2019-04-08] MEDS ORDERED: cefTRIAXone 2,000 MG in SODIUM CHLORIDE 0.9% 100 ML IV STA (15:05)
[2019-04-08 15:13] LABS: INR 1.1; PT Patient Result 11.4 SECS (9.6-12.2); Partial Thromboplastin Time 33.4 SECS (20.8-36.0)
[2019-04-08] MEDS ORDERED: SODIUM CHLORIDE 0.9% 1,000 ML IV STA ×2 (15:23→15:25)
[2019-04-08] MEDS ORDERED: ALBUTEROL/IPRATROPIUM 3 ML NEB RESP TX STA (15:25)
[2019-04-08 15:36] LABS: Band Neutrophils 8 % (0-10); Lymphocytes 8 % (20-55); Segmented Neutrophils 81 % (50-85); Total Cells Counted 100
[2019-04-08 15:37] LABS: Anisocytosis Slight; Macrocytosis Slight; Platelet Estimate Normal
[2019-04-08 15:54] LABS: Apearance,Urine Slightly Hazy (Clear); Bilirubin,Urine Negative (Negative); Blood, Urine Moderate mg/dL (Negative); Glucose,Urine (UA) Negative (Negative); Hyaline Casts,Urine 5 /LPF (0-3); Ketones,Urine Negative (Negative); Mucus,Urine Occasional /LPF (Occasional); Nitrite,Urine Negative (Negative); Protein,Urine >=500 MG/DL; RBC,Urine 9 /HPF (0-4); Urine Color Amber (Yellow); Urine Specific Gravity 1.019 (1.001-1.035); Urine Urobilinogen < 2.0 EU/DL (0.2-1.0); WBC,Urine <1 /HPF (0-6)
[2019-04-08] MEDS ORDERED: VANCOMYCIN INJ 1,750 MG in SODIUM CHLORIDE 0.9% 500 ML IV STA (16:07)
[2019-04-08] MEDS ORDERED: ONDANSETRON 4 MG/2 ML VIAL IV PRN (16:14)
[2019-04-08] MEDS ORDERED: SODIUM CHLORIDE 0.45% 1,000 ML IV SCH (16:14)
[2019-04-08 16:30] LABS: Barbiturates Screen,Urine Negative (Negative); Benzodiazepines Screen,Urine Negative (Negative); Cannabinoid Screen,Urine Positive (Negative); Opiate Screen,Urine Negative (Negative); Phencyclidine Screen,Urine Negative (Negative)
[2019-04-08] MEDS: LEVOFLOXACIN INJ 750 MG in PREMIX 1 EACH IV SCH (17:15)
[2019-04-08] MEDS: SULFAMETHOX/TRIMETHOPRIM 800-160 MG TABLET PO SCH ×2 (17:25→20:08)
[2019-04-08] MEDS: PANTOPRAZOLE 40 MG TABLET PO SCH (17:26)
[2019-04-08] MEDS ORDERED: DIAZEPAM 5 MG TABLET PO PRN (19:12)
[2019-04-08] MEDS: ALBUTEROL/IPRATROPIUM 3 ML NEB RESP TX SCH (19:43)
[2019-04-08] MEDS: predniSONE 20 MG TABLET PO SCH (20:08)
[2019-04-08] MEDS: ENOXAPARIN 40 MG/0.4 ML SYRINGE SUBCUT SCH (20:08)
[2019-04-08] MEDS: RALTEGRAVIR 400 MG TABLET PO SCH (20:11)
[2019-04-08] MEDS ORDERED: NOREPINEPHRINE 8 MG in SODIUM CHLORIDE 0.9% 242 ML IV PRN (20:26)
[2019-04-08] MEDS: SODIUM CHLORIDE 0.9% 1,000 ML IV SCH (21:05)
[2019-04-08] MEDS: ACETAMINOPHEN 325 MG TABLET PO PRN (21:05)
[2019-04-09] MEDS: ALBUTEROL/IPRATROPIUM 3 ML NEB RESP TX SCH ×4 (00:26→18:55)
[2019-04-09 04:48] LABS: Basophils # 0.1 10*3/uL (0.0-0.2); Basophils % 0.4 % (0.0-0.8); Hemoglobin 15.4 GM/DL (14.0-18.0); Immature Granulocytes % 5.4 %; Immature Granulocytes Absolute 1.33 #; Lymphocytes # 0.8 10*3/uL (1.4-4.0); Lymphocytes % 3.2 % (21.2-54.2); Mean Corpuscular HGB Conc 34.2 GM/DL (32-36); Mean Corpuscular Volume 94.7 FL (87-102); Monocytes % 4.6 % (1.7-12.7); Neutrophils % 86.4 % (38.7-73.9); Platelet Count 133 T/CUMM (130-400); Red Blood Count 4.75 MC/CUMM (3.8-5.5); Red Cell Distribution Width 13.1 % (9.3-17.3); White Blood Count 24.6 T/CUMM (4-12)
[2019-04-09 05:05] LABS: Calcium 8.2 MG/DL (8.5-10.1); Osmolality,Calculated 277.7 MOS/KG (273-304)
[2019-04-09 05:56] LABS: Band Neutrophils 4 % (0-10); Lymphocytes 2 % (20-55); Platelet Estimate Decreased; Segmented Neutrophils 89 % (50-85); Total Cells Counted 100
[2019-04-09] MEDS: AZITHROMYCIN 250 MG TABLET PO SCH (08:50)
[2019-04-09] MEDS: PANTOPRAZOLE 40 MG TABLET PO SCH (08:50)
[2019-04-09] MEDS: SULFAMETHOX/TRIMETHOPRIM 800-160 MG TABLET PO SCH ×2 (08:50→21:30)
[2019-04-09] MEDS: predniSONE 20 MG TABLET PO SCH ×2 (08:50→21:31)
[2019-04-09] MEDS ORDERED: SODIUM CHLORIDE 0.9% IV SCH (09:00)
[2019-04-09] MEDS ORDERED: AZITHROMYCIN IV SCH (09:00)
[2019-04-09] MEDS: DESCOVY PO SCH (09:20)
[2019-04-09] MEDS: RALTEGRAVIR 400 MG TABLET PO SCH ×2 (09:20→21:41)
[2019-04-09] MEDS: SODIUM CHLORIDE 0.9% 1,000 ML IV SCH ×2 (10:06→23:29)
[2019-04-09] MEDS: LEVOFLOXACIN INJ 750 MG in PREMIX 1 EACH IV SCH (16:06)
[2019-04-09] MEDS ORDERED: VANCOMYCIN INJ 1,000 MG in SODIUM CHLORIDE 0.9% 250 ML IV SCH (18:00)
[2019-04-09] MEDS: ACETAMINOPHEN 325 MG TABLET PO PRN (21:31)
[2019-04-09] MEDS: ENOXAPARIN 40 MG/0.4 ML SYRINGE SUBCUT SCH (21:31)
[2019-04-10] MEDS: ALBUTEROL/IPRATROPIUM 3 ML NEB RESP TX SCH ×4 (01:09→19:25)
[2019-04-10 04:31] LABS: Basophils % 0.2 % (0.0-0.8); Hematocrit 43.4 VOL% (42.0-52.0); Hemoglobin 14.7 GM/DL (14.0-18.0); Immature Granulocytes % 1.3 %; Immature Granulocytes Absolute 0.22 #; Lymphocytes # 0.5 10*3/uL (1.4-4.0); Lymphocytes % 3.1 % (21.2-54.2); Mean Corpuscular HGB Conc 33.9 GM/DL (32-36); Mean Corpuscular Volume 96.2 FL (87-102); Mean Platelet Volume 11.8 FL (9.6-12.0); Monocytes % 3.3 % (1.7-12.7); Neutrophils % 92.1 % (38.7-73.9); Platelet Count 118 T/CUMM (130-400); Red Blood Count 4.51 MC/CUMM (3.8-5.5); Red Cell Distribution Width 13.2 % (9.3-17.3); White Blood Count 16.8 T/CUMM (4-12)
[2019-04-10 04:58] LABS: Band Neutrophils 1 % (0-10); Lymphocytes 1 % (20-55); Platelet Estimate Adequate; Polychromasia Slight; Segmented Neutrophils 97 % (50-85); Smudge Cells Few; Total Cells Counted 100
[2019-04-10 04:59] LABS: Calcium 8.4 MG/DL (8.5-10.1); Osmolality,Calculated 279.5 MOS/KG (273-304)
[2019-04-10] MEDS: VANCOMYCIN INJ 1,000 MG in SODIUM CHLORIDE 0.9% 250 ML IV SCH ×2 (05:56→17:54)
[2019-04-10] MEDS: predniSONE 20 MG TABLET PO SCH ×2 (09:13→21:01)
[2019-04-10] MEDS: PANTOPRAZOLE 40 MG TABLET PO SCH (09:13)
[2019-04-10] MEDS: SULFAMETHOX/TRIMETHOPRIM 800-160 MG TABLET PO SCH ×2 (09:13→21:01)
[2019-04-10] MEDS: AZITHROMYCIN 250 MG TABLET PO SCH (09:13)
[2019-04-10] MEDS: DESCOVY PO SCH (09:14)
[2019-04-10] MEDS: RALTEGRAVIR 400 MG TABLET PO SCH ×2 (09:14→21:01)
[2019-04-10] MEDS: SODIUM CHLORIDE 0.9% 1,000 ML IV SCH (12:50)
[2019-04-10] MEDS: LEVOFLOXACIN INJ 750 MG in PREMIX 1 EACH IV SCH (15:20)
[2019-04-10] MEDS: FUROSEMIDE 40 MG TABLET PO SCH (15:26)
[2019-04-10] MEDS: ENOXAPARIN 40 MG/0.4 ML SYRINGE SUBCUT SCH (21:01)
[2019-04-10] MEDS: CARVEDILOL 6.25 MG TABLET PO SCH (21:01)
[2019-04-10] MEDS: DIAZEPAM 5 MG TABLET PO PRN (23:14)
[2019-04-11] MEDS: ALBUTEROL/IPRATROPIUM 3 ML NEB RESP TX SCH ×4 (00:34→20:22)
[2019-04-11] MEDS: SODIUM CHLORIDE 0.9% 1,000 ML IV SCH ×2 (02:15→09:12)
[2019-04-11 04:24] LABS: Calcium 8.5 MG/DL (8.5-10.1); Osmolality,Calculated 281.5 MOS/KG (273-304)
[2019-04-11 04:26] LABS: Basophils % 0.3 % (0.0-0.8); Hematocrit 44.2 VOL% (42.0-52.0); Hemoglobin 14.8 GM/DL (14.0-18.0); Immature Granulocytes % 1.4 %; Immature Granulocytes Absolute 0.17 #; Lymphocytes # 0.6 10*3/uL (1.4-4.0); Lymphocytes % 5.2 % (21.2-54.2); Mean Corpuscular HGB Conc 33.5 GM/DL (32-36); Mean Corpuscular Volume 96.3 FL (87-102); Mean Platelet Volume 11.1 FL (9.6-12.0); Monocytes % 3.7 % (1.7-12.7); Neutrophils % 89.4 % (38.7-73.9); Platelet Count 156 T/CUMM (130-400); Red Blood Count 4.59 MC/CUMM (3.8-5.5); Red Cell Distribution Width 13.1 % (9.3-17.3); White Blood Count 12.1 T/CUMM (4-12)
[2019-04-11] MEDS: VANCOMYCIN INJ 1,000 MG in SODIUM CHLORIDE 0.9% 250 ML IV SCH (05:25)
[2019-04-11] MEDS: FUROSEMIDE 40 MG TABLET PO SCH ×2 (08:58→15:50)
[2019-04-11] MEDS: PANTOPRAZOLE 40 MG TABLET PO SCH (08:58)
[2019-04-11] MEDS: SULFAMETHOX/TRIMETHOPRIM 800-160 MG TABLET PO SCH ×2 (08:58→21:04)
[2019-04-11] MEDS: predniSONE 20 MG TABLET PO SCH ×2 (08:58→21:05)
[2019-04-11] MEDS: CARVEDILOL 6.25 MG TABLET PO SCH ×2 (09:06→21:05)
[2019-04-11] MEDS: RALTEGRAVIR 400 MG TABLET PO SCH ×2 (09:06→21:05)
[2019-04-11] MEDS: DESCOVY PO SCH (09:06)
[2019-04-11] MEDS ORDERED: MAGNESIUM CITRATE 300 ML BOTTLE PO ONE (12:19)
[2019-04-11] MEDS ORDERED: cefTRIAXone 1,000 MG in SYRINGE 1 EACH IV SCH (14:30)
[2019-04-11 15:25] LABS: % CD4 (T Cells) 17 % (32-64); % CD8 (T Cells) 52 % (8-40); 4/8 Ratio 0.3 (>=0.9)
[2019-04-11 18:12] LABS: TB2 Ag Minus Result 0 IU/mL
[2019-04-11] MEDS: DIAZEPAM 5 MG TABLET PO PRN (21:05)
[2019-04-11] MEDS: ENOXAPARIN 40 MG/0.4 ML SYRINGE SUBCUT SCH (21:05)
[2019-04-12] MEDS: ALBUTEROL/IPRATROPIUM 3 ML NEB RESP TX SCH ×4 (00:10→20:18)
[2019-04-12 08:15] LABS: Pneumocystis jiroveci Result Negative (Negative); Pneumocystis jiroveci Source SPUTUM
[2019-04-12] MEDS: CARVEDILOL 6.25 MG TABLET PO SCH ×2 (09:50→21:22)
[2019-04-12] MEDS: PANTOPRAZOLE 40 MG TABLET PO SCH (09:50)
[2019-04-12] MEDS: FUROSEMIDE 40 MG TABLET PO SCH ×2 (09:50→18:35)
[2019-04-12] MEDS: SULFAMETHOX/TRIMETHOPRIM 800-160 MG TABLET PO SCH (09:50)
[2019-04-12] MEDS: predniSONE 20 MG TABLET PO SCH ×2 (09:50→21:22)
[2019-04-12] MEDS: RALTEGRAVIR 400 MG TABLET PO SCH ×2 (09:51→21:22)
[2019-04-12] MEDS: DESCOVY PO SCH (09:52)
[2019-04-12] MEDS: DIAZEPAM 5 MG TABLET PO PRN (12:12)
[2019-04-12] MEDS: cefTRIAXone 2,000 MG in SYRINGE 1 EACH IV SCH (13:36)
[2019-04-12] MEDS: ENOXAPARIN 40 MG/0.4 ML SYRINGE SUBCUT SCH (21:23)
[2019-04-13] MEDS: ALBUTEROL/IPRATROPIUM 3 ML NEB RESP TX SCH ×4 (00:38→19:26)
[2019-04-13] MEDS: SULFAMETHOX/TRIMETHOPRIM 400-80 MG TABLET PO SCH (09:57)
[2019-04-13] MEDS: cefTRIAXone 2,000 MG in SYRINGE 1 EACH IV SCH (09:57)
[2019-04-13] MEDS: LISINOPRIL 2.5 MG TABLET PO SCH (09:57)
[2019-04-13] MEDS: FUROSEMIDE 40 MG TABLET PO SCH ×2 (09:58→15:31)
[2019-04-13] MEDS: DESCOVY PO SCH (09:58)
[2019-04-13] MEDS: PANTOPRAZOLE 40 MG TABLET PO SCH (09:58)
[2019-04-13] MEDS: RALTEGRAVIR 400 MG TABLET PO SCH ×2 (09:58→21:39)
[2019-04-13] MEDS: CARVEDILOL 6.25 MG TABLET PO SCH ×2 (09:58→21:38)
[2019-04-13] MEDS: predniSONE 20 MG TABLET PO SCH ×2 (09:58→21:38)
[2019-04-13] MEDS: ENOXAPARIN 40 MG/0.4 ML SYRINGE SUBCUT SCH (21:38)
[2019-04-14] MEDS: ALBUTEROL/IPRATROPIUM 3 ML NEB RESP TX SCH ×3 (00:50→13:55)
[2019-04-14] MEDS: cefTRIAXone 2,000 MG in SYRINGE 1 EACH IV SCH (09:02)
[2019-04-14] MEDS: RALTEGRAVIR 400 MG TABLET PO SCH (09:02)
[2019-04-14] MEDS: CARVEDILOL 6.25 MG TABLET PO SCH (09:03)
[2019-04-14] MEDS: SULFAMETHOX/TRIMETHOPRIM 400-80 MG TABLET PO SCH (09:03)
[2019-04-14] MEDS: FUROSEMIDE 40 MG TABLET PO SCH (09:03)
[2019-04-14] MEDS: predniSONE 20 MG TABLET PO SCH (09:03)
[2019-04-14] MEDS: DESCOVY PO SCH (09:03)
[2019-04-14] MEDS: PANTOPRAZOLE 40 MG TABLET PO SCH (09:12)
[2019-04-14] MEDS: LISINOPRIL 2.5 MG TABLET PO SCH (09:12)
[2019-04-14 11:52] VITALS: BP 110/74
[2019-04-15] MEDS ORDERED: LEVOFLOXACIN 500 MG TABLET PO SCH (09:00)
== END 2019-04-14 15:30 | disposition home or self-care (01) | DRG 890 ==
LOC: N.ED 12:09 → SUATTDRO 15:31 → N.EDINP 15:31 → N.CC 15:46 → N.2E 04-12 15:08
PROVIDERS: ADMIT Internal Medicine; ATTEND Hospitalist

== ENCOUNTER 2019-08-10 21:46 | Inpatient (IN) ==
[2019-08-10] MEDS ORDERED: ALBUTEROL/IPRATROPIUM 3 ML NEB RESP TX STA (22:16)
[2019-08-10 22:51] LABS: ABG Base Excess 1.4 MMOL/L (-2.5-2.5); ABG HCO3 25.2 MMOL/L (20-26); ABG Oxygen Saturation 83.5 % (95-100); ABG PCO2 59.2 MM HG (35-48); ABG PH 7.314 (7.35-7.45); ABG PO2 47.3 MM HG (80-95); Allen Test Positive
[2019-08-10 22:51] LABS: Basophils # 0.1 10*3/uL (0.0-0.2); Basophils % 0.6 % (0.0-0.8); Eosinophils # 0.1 10*3/uL (0.0-0.87); Eosinophils % 1.1 % (0.00-10.9); Hematocrit 55.2 VOL% (42.0-52.0); Hemoglobin 18.2 GM/DL (14.0-18.0); Immature Granulocytes % 0.2 %; Immature Granulocytes Absolute 0.02 #; Lymphocytes # 1.3 10*3/uL (1.4-4.0); Lymphocytes % 16.5 % (21.2-54.2); Mean Corpuscular Volume 98.9 FL (87-102); Mean Platelet Volume 10.3 FL (9.6-12.0); Monocytes % 10.8 % (1.7-12.7); Neutrophils % 70.8 % (38.7-73.9); Platelet Count 154 T/CUMM (130-400); Red Blood Count 5.58 MC/CUMM (3.8-5.5); Red Cell Distribution Width 13.2 % (9.3-17.3)
[2019-08-10 23:26] LABS: Blood Urea Nitrogen 21 MG/DL (7-18); Calcium 8.6 MG/DL (8.5-10.1); Estimated Glom Filtration Rate 76 ML/MIN; Glucose 117 MG/DL (74-106); Osmolality,Calculated 282.4 MOS/KG (273-304); Troponin I 0.122 NG/ML (0.00-0.045)
[2019-08-10] MEDS ORDERED: ENOXAPARIN 100 MG/ML SYRINGE SUBCUT STA (23:35)
[2019-08-10] MEDS ORDERED: ASPIRIN CHEW 81 MG TABLET PO STA (23:35)
[2019-08-10] MEDS ORDERED: AZITHROMYCIN INJ 500 MG in SODIUM CHLORIDE 0.9% 250 ML IV STA (23:56)
[2019-08-10] MEDS ORDERED: cefTRIAXone 1,000 MG in SODIUM CHLORIDE 0.9% 100 ML IV STA (23:56)
[2019-08-11] MEDS ORDERED: FUROSEMIDE 40 MG/4 ML VIAL IV STA (00:45)
[2019-08-11] MEDS ORDERED: PROMETHAZINE 25 MG TABLET PO PRN (01:26)
[2019-08-11] MEDS ORDERED: DOCUSATE SODIUM 100 MG CAPSULE PO PRN (01:26)
[2019-08-11] MEDS ORDERED: ONDANSETRON 4 MG/2 ML VIAL IV PRN (01:26)
[2019-08-11] MEDS ORDERED: ACETAMINOPHEN 325 MG TABLET PO PRN (01:26)
[2019-08-11] MEDS ORDERED: ALBUTEROL 2.5 MG/3 ML NEB RESP TX PRN (01:30)
[2019-08-11] MEDS: methylPREDNISolone SOD SUC 40 MG/1 ML VIAL IV SCH ×3 (02:22→17:43)
[2019-08-11] MEDS: PIPERACILLIN/TAZOBACTAM 3,375 MG in SODIUM CHLORIDE 0.9% 100 ML IV SCH ×3 (02:50→17:44)
[2019-08-11] MEDS: ALBUTEROL/IPRATROPIUM 3 ML NEB RESP TX SCH ×5 (04:32→20:18)
[2019-08-11 04:54] LABS: Basophils % 0.5 % (0.0-0.8); Eosinophils % 0.5 % (0.00-10.9); Hematocrit 52.6 VOL% (42.0-52.0); Hemoglobin 17.2 GM/DL (14.0-18.0); Immature Granulocytes % 0.4 %; Immature Granulocytes Absolute 0.03 #; Lymphocytes # 0.8 10*3/uL (1.4-4.0); Lymphocytes % 11.1 % (21.2-54.2); Mean Corpuscular HGB Conc 32.7 GM/DL (32-36); Mean Corpuscular Volume 98.9 FL (87-102); Mean Platelet Volume 10.2 FL (9.6-12.0); Monocytes % 7.1 % (1.7-12.7); Neutrophils % 80.4 % (38.7-73.9); Platelet Count 150 T/CUMM (130-400); Red Blood Count 5.32 MC/CUMM (3.8-5.5); Red Cell Distribution Width 13.1 % (9.3-17.3); White Blood Count 7.5 T/CUMM (4-12)
[2019-08-11 05:35] LABS: Calcium 8.1 MG/DL (8.5-10.1)
[2019-08-11 07:54] LABS: ABG Base Excess 0.5 MMOL/L (-2.5-2.5); ABG HCO3 24.8 MMOL/L (20-26); ABG PH 7.244 (7.35-7.45); ABG PO2 99.9 MM HG (80-95); ABG TCO2 26.9 MMOL/L (23-27)
[2019-08-11 07:55] LABS: Pt O2 Delivery Device BIPAP
[2019-08-11] MEDS: VANCOMYCIN INJ 1,250 MG in SODIUM CHLORIDE 0.9% 250 ML IV SCH ×2 (07:58→20:51)
[2019-08-11] MEDS: FUROSEMIDE 40 MG/4 ML VIAL IV SCH ×2 (07:58→15:30)
[2019-08-11 08:01] LABS: ABG PCO2 74.1 MM HG (35-48)
[2019-08-11] MEDS: carvediloL 12.5 MG TABLET PO SCH ×2 (09:02→21:12)
[2019-08-11] MEDS: lisinopriL 10 MG TABLET PO SCH (09:02)
[2019-08-11] MEDS: DESCOVY PO SCH (09:03)
[2019-08-11] MEDS: PANTOPRAZOLE 40 MG TABLET PO SCH (09:03)
[2019-08-11] MEDS: RALTEGRAVIR 400 MG TABLET PO SCH ×2 (09:03→20:52)
[2019-08-11] MEDS: NICOTINE 14 MG/24 HR PATCH TRANSDERM SCH (12:16)
[2019-08-11 12:18] LABS: Barbiturates Screen,Urine Negative (Negative); Benzodiazepines Screen,Urine Negative (Negative); Cannabinoid Screen,Urine Negative (Negative); Opiate Screen,Urine Negative (Negative); Phencyclidine Screen,Urine Negative (Negative)
[2019-08-12] MEDS: AZITHROMYCIN INJ 500 MG in SODIUM CHLORIDE 0.9% 250 ML IV SCH (00:05)
[2019-08-12] MEDS: ALBUTEROL/IPRATROPIUM 3 ML NEB RESP TX SCH ×7 (00:27→23:50)
[2019-08-12] MEDS: methylPREDNISolone SOD SUC 40 MG/1 ML VIAL IV SCH ×3 (01:36→18:03)
[2019-08-12] MEDS: PIPERACILLIN/TAZOBACTAM 3,375 MG in SODIUM CHLORIDE 0.9% 100 ML IV SCH ×3 (01:36→18:05)
[2019-08-12] MEDS: VANCOMYCIN INJ 1,250 MG in SODIUM CHLORIDE 0.9% 250 ML IV SCH (07:50)
[2019-08-12] MEDS: FUROSEMIDE 40 MG/4 ML VIAL IV SCH ×2 (07:50→15:55)
[2019-08-12] MEDS: DESCOVY PO SCH (08:07)
[2019-08-12] MEDS: NICOTINE 14 MG/24 HR PATCH TRANSDERM SCH (08:07)
[2019-08-12] MEDS: PANTOPRAZOLE 40 MG TABLET PO SCH (08:08)
[2019-08-12] MEDS: lisinopriL 10 MG TABLET PO SCH (08:08)
[2019-08-12] MEDS: RALTEGRAVIR 400 MG TABLET PO SCH ×2 (08:08→21:15)
[2019-08-12] MEDS: carvediloL 12.5 MG TABLET PO SCH ×2 (08:09→21:15)
[2019-08-12] MEDS: SPIRONOLACTONE 25 MG TABLET PO SCH (15:55)
[2019-08-13] MEDS: AZITHROMYCIN INJ 500 MG in SODIUM CHLORIDE 0.9% 250 ML IV SCH ×2 (00:23→23:52)
[2019-08-13] MEDS: methylPREDNISolone SOD SUC 40 MG/1 ML VIAL IV SCH ×3 (02:22→18:15)
[2019-08-13] MEDS: PIPERACILLIN/TAZOBACTAM 3,375 MG in SODIUM CHLORIDE 0.9% 100 ML IV SCH ×3 (02:22→18:15)
[2019-08-13] MEDS: ALBUTEROL/IPRATROPIUM 3 ML NEB RESP TX SCH ×5 (03:50→19:31)
[2019-08-13 04:35] LABS: ABG Base Excess 9.3 MMOL/L (-2.5-2.5); ABG HCO3 32.9 MMOL/L (20-26); ABG Oxygen Saturation 91.9 % (95-100); ABG PCO2 67.6 MM HG (35-48); ABG PH 7.366 (7.35-7.45); ABG PO2 63.2 MM HG (80-95); ABG TCO2 32.4 MMOL/L (23-27); Allen Test Positive; Pt O2 Delivery Device Other
[2019-08-13 04:47] LABS: Basophils % 0.2 % (0.0-0.8); Hematocrit 51.8 VOL% (42.0-52.0); Hemoglobin 17.1 GM/DL (14.0-18.0); Immature Granulocytes % 1.7 %; Lymphocytes # 0.9 10*3/uL (1.4-4.0); Lymphocytes % 7.6 % (21.2-54.2); Mean Corpuscular Volume 99.2 FL (87-102); Mean Platelet Volume 10.4 FL (9.6-12.0); Monocytes % 5.6 % (1.7-12.7); Neutrophils % 84.9 % (38.7-73.9); Platelet Count 162 T/CUMM (130-400); Red Blood Count 5.22 MC/CUMM (3.8-5.5); Red Cell Distribution Width 13.2 % (9.3-17.3); White Blood Count 11.9 T/CUMM (4-12)
[2019-08-13 05:17] LABS: Bilirubin,Total 0.4 MG/DL (0.2-1.0); Calcium 8.4 MG/DL (8.5-10.1); Total Protein 6.7 G/DL (6.4-8.3)
[2019-08-13] MEDS: carvediloL 12.5 MG TABLET PO SCH ×2 (08:24→21:09)
[2019-08-13] MEDS: FUROSEMIDE 40 MG/4 ML VIAL IV SCH (08:35)
[2019-08-13] MEDS: lisinopriL 10 MG TABLET PO SCH (08:36)
[2019-08-13] MEDS: PANTOPRAZOLE 40 MG TABLET PO SCH (08:36)
[2019-08-13] MEDS: SPIRONOLACTONE 25 MG TABLET PO SCH (08:36)
[2019-08-13] MEDS: RALTEGRAVIR 400 MG TABLET PO SCH ×2 (08:37→21:10)
[2019-08-13] MEDS: DESCOVY PO SCH (08:37)
[2019-08-13] MEDS: NICOTINE 14 MG/24 HR PATCH TRANSDERM SCH (08:38)
[2019-08-13] MEDS: FUROSEMIDE 40 MG TABLET PO SCH (15:56)
[2019-08-13] MEDS: SULFAMETH/TRIMETH INJ 300 MG in DEXTROSE 5% 500 ML IV SCH ×2 (16:10→21:08)
[2019-08-14] MEDS: ALBUTEROL/IPRATROPIUM 3 ML NEB RESP TX SCH ×7 (00:18→23:35)
[2019-08-14] MEDS: methylPREDNISolone SOD SUC 40 MG/1 ML VIAL IV SCH ×3 (02:26→18:20)
[2019-08-14] MEDS: PIPERACILLIN/TAZOBACTAM 3,375 MG in SODIUM CHLORIDE 0.9% 100 ML IV SCH ×3 (02:26→18:20)
[2019-08-14] MEDS: SULFAMETH/TRIMETH INJ 300 MG in DEXTROSE 5% 500 ML IV SCH ×4 (02:31→21:57)
[2019-08-14 05:22] LABS: Basophils % 0.1 % (0.0-0.8); Hematocrit 49.1 VOL% (42.0-52.0); Hemoglobin 16.4 GM/DL (14.0-18.0); Immature Granulocytes % 0.5 %; Immature Granulocytes Absolute 0.05 #; Mean Corpuscular HGB Conc 33.4 GM/DL (32-36); Mean Corpuscular Volume 97.4 FL (87-102); Mean Platelet Volume 10.2 FL (9.6-12.0); Monocytes % 5.9 % (1.7-12.7); Neutrophils % 84.5 % (38.7-73.9); Platelet Count 170 T/CUMM (130-400); Red Blood Count 5.04 MC/CUMM (3.8-5.5); Red Cell Distribution Width 13.1 % (9.3-17.3); White Blood Count 10.7 T/CUMM (4-12)
[2019-08-14] MEDS: NICOTINE 14 MG/24 HR PATCH TRANSDERM SCH (09:40)
[2019-08-14] MEDS: DESCOVY PO SCH (09:40)
[2019-08-14] MEDS: RALTEGRAVIR 400 MG TABLET PO SCH ×2 (09:40→21:57)
[2019-08-14] MEDS: PANTOPRAZOLE 40 MG TABLET PO SCH (09:41)
[2019-08-14] MEDS: carvediloL 12.5 MG TABLET PO SCH ×2 (09:41→21:57)
[2019-08-14] MEDS: FUROSEMIDE 40 MG TABLET PO SCH ×2 (09:41→15:34)
[2019-08-14] MEDS: lisinopriL 10 MG TABLET PO SCH (09:41)
[2019-08-14] MEDS: SPIRONOLACTONE 25 MG TABLET PO SCH (09:41)
[2019-08-14 11:18] LABS: Calcium 8.1 MG/DL (8.5-10.1); Osmolality,Calculated 280.7 MOS/KG (273-304)
[2019-08-14 12:24] LABS: ABG Base Excess 7.1 MMOL/L (-2.5-2.5); ABG HCO3 30.6 MMOL/L (20-26); ABG Oxygen Saturation 90.7 % (95-100); ABG PCO2 53.8 MM HG (35-48); ABG PH 7.409 (7.35-7.45); ABG PO2 58.9 MM HG (80-95); ABG TCO2 28.1 MMOL/L (23-27)
[2019-08-14] MEDS: ENOXAPARIN 40 MG/0.4 ML SYRINGE SUBCUT SCH (18:20)
[2019-08-14] MEDS: FUROSEMIDE 40 MG/4 ML VIAL IV SCH (18:20)
[2019-08-15] MEDS: AZITHROMYCIN INJ 500 MG in SODIUM CHLORIDE 0.9% 250 ML IV SCH (00:26)
[2019-08-15] MEDS: PIPERACILLIN/TAZOBACTAM 3,375 MG in SODIUM CHLORIDE 0.9% 100 ML IV SCH ×3 (01:59→18:24)
[2019-08-15] MEDS: methylPREDNISolone SOD SUC 40 MG/1 ML VIAL IV SCH ×3 (02:02→18:24)
[2019-08-15] MEDS: SULFAMETH/TRIMETH INJ 300 MG in DEXTROSE 5% 500 ML IV SCH ×4 (03:07→22:23)
[2019-08-15] MEDS: ALBUTEROL/IPRATROPIUM 3 ML NEB RESP TX SCH ×5 (03:40→20:50)
[2019-08-15 04:55] LABS: Basophils % 0.2 % (0.0-0.8); Hematocrit 50.4 VOL% (42.0-52.0); Hemoglobin 16.7 GM/DL (14.0-18.0); Immature Granulocytes % 0.5 %; Immature Granulocytes Absolute 0.04 #; Lymphocytes % 10.9 % (21.2-54.2); Mean Corpuscular HGB Conc 33.1 GM/DL (32-36); Mean Corpuscular Volume 97.1 FL (87-102); Mean Platelet Volume 10.6 FL (9.6-12.0); Monocytes % 3.8 % (1.7-12.7); Neutrophils % 84.6 % (38.7-73.9); Platelet Count 177 T/CUMM (130-400); Red Blood Count 5.19 MC/CUMM (3.8-5.5); White Blood Count 8.7 T/CUMM (4-12)
[2019-08-15 05:13] LABS: Calcium 8.2 MG/DL (8.5-10.1); Osmolality,Calculated 278.1 MOS/KG (273-304)
[2019-08-15] MEDS: FUROSEMIDE 40 MG/4 ML VIAL IV SCH (08:42)
[2019-08-15] MEDS: PANTOPRAZOLE 40 MG TABLET PO SCH (08:59)
[2019-08-15] MEDS: RALTEGRAVIR 400 MG TABLET PO SCH ×2 (08:59→21:27)
[2019-08-15] MEDS: NICOTINE 14 MG/24 HR PATCH TRANSDERM SCH (08:59)
[2019-08-15] MEDS: lisinopriL 10 MG TABLET PO SCH (08:59)
[2019-08-15] MEDS: carvediloL 12.5 MG TABLET PO SCH ×2 (08:59→21:26)
[2019-08-15] MEDS: DESCOVY PO SCH (08:59)
[2019-08-15] MEDS ORDERED: FUROSEMIDE 40 MG/4 ML VIAL IV SCH (09:00)
[2019-08-15] MEDS: ENOXAPARIN 40 MG/0.4 ML SYRINGE SUBCUT SCH (18:24)
[2019-08-15] MEDS ORDERED: RALTEGRAVIR 400 MG PO SCH (21:00)
[2019-08-16] MEDS: AZITHROMYCIN INJ 500 MG in SODIUM CHLORIDE 0.9% 250 ML IV SCH (00:04)
[2019-08-16] MEDS: ALBUTEROL/IPRATROPIUM 3 ML NEB RESP TX SCH ×7 (00:33→23:55)
[2019-08-16] MEDS: PIPERACILLIN/TAZOBACTAM 3,375 MG in SODIUM CHLORIDE 0.9% 100 ML IV SCH ×3 (02:19→18:42)
[2019-08-16] MEDS: methylPREDNISolone SOD SUC 40 MG/1 ML VIAL IV SCH ×3 (02:20→18:41)
[2019-08-16] MEDS: SULFAMETH/TRIMETH INJ 300 MG in DEXTROSE 5% 500 ML IV SCH ×4 (05:32→22:45)
[2019-08-16 06:49] LABS: Basophils % 0.1 % (0.0-0.8); Hematocrit 50.1 VOL% (42.0-52.0); Hemoglobin 16.7 GM/DL (14.0-18.0); Immature Granulocytes % 0.4 %; Immature Granulocytes Absolute 0.03 #; Lymphocytes # 0.7 10*3/uL (1.4-4.0); Lymphocytes % 9.1 % (21.2-54.2); Mean Corpuscular HGB Conc 33.3 GM/DL (32-36); Mean Corpuscular Volume 96.9 FL (87-102); Mean Platelet Volume 10.2 FL (9.6-12.0); Monocytes % 2.7 % (1.7-12.7); Neutrophils % 87.7 % (38.7-73.9); Platelet Count 170 T/CUMM (130-400); Red Blood Count 5.17 MC/CUMM (3.8-5.5); Red Cell Distribution Width 12.8 % (9.3-17.3)
[2019-08-16 07:05] LABS: Calcium 8.2 MG/DL (8.5-10.1); Osmolality,Calculated 276.2 MOS/KG (273-304)
[2019-08-16] MEDS ORDERED: EMTRICITABINE TENOFOVIR ALAFEN PO SCH (09:00)
[2019-08-16] MEDS: NICOTINE 14 MG/24 HR PATCH TRANSDERM SCH (09:42)
[2019-08-16] MEDS: PANTOPRAZOLE 40 MG TABLET PO SCH (09:43)
[2019-08-16] MEDS: lisinopriL 10 MG TABLET PO SCH (09:43)
[2019-08-16] MEDS: carvediloL 12.5 MG TABLET PO SCH ×2 (09:43→20:56)
[2019-08-16] MEDS: RALTEGRAVIR 400 MG TABLET PO SCH ×2 (09:44→20:56)
[2019-08-16] MEDS: DESCOVY PO SCH (09:44)
[2019-08-16] MEDS: ENOXAPARIN 40 MG/0.4 ML SYRINGE SUBCUT SCH (18:42)
[2019-08-17] MEDS: AZITHROMYCIN INJ 500 MG in SODIUM CHLORIDE 0.9% 250 ML IV SCH (00:50)
[2019-08-17] MEDS: methylPREDNISolone SOD SUC 40 MG/1 ML VIAL IV SCH ×3 (03:15→18:23)
[2019-08-17] MEDS: PIPERACILLIN/TAZOBACTAM 3,375 MG in SODIUM CHLORIDE 0.9% 100 ML IV SCH ×3 (03:16→18:25)
[2019-08-17] MEDS: ALBUTEROL/IPRATROPIUM 3 ML NEB RESP TX SCH ×5 (03:37→19:30)
[2019-08-17 05:04] LABS: Basophils % 0.1 % (0.0-0.8); Hematocrit 48.4 VOL% (42.0-52.0); Hemoglobin 16.2 GM/DL (14.0-18.0); Immature Granulocytes % 0.7 %; Immature Granulocytes Absolute 0.07 #; Lymphocytes # 0.8 10*3/uL (1.4-4.0); Lymphocytes % 7.6 % (21.2-54.2); Mean Corpuscular HGB Conc 33.5 GM/DL (32-36); Mean Corpuscular Volume 96.8 FL (87-102); Mean Platelet Volume 10.5 FL (9.6-12.0); Monocytes % 3.7 % (1.7-12.7); Neutrophils % 87.9 % (38.7-73.9); PT Patient Result 10.8 SECS (9.6-12.2); Platelet Count 187 T/CUMM (130-400); Red Cell Distribution Width 12.8 % (9.3-17.3); White Blood Count 10.2 T/CUMM (4-12)
[2019-08-17] MEDS: SULFAMETH/TRIMETH INJ 300 MG in DEXTROSE 5% 500 ML IV SCH ×3 (05:40→16:59)
[2019-08-17] MEDS: PANTOPRAZOLE 40 MG TABLET PO SCH (09:00)
[2019-08-17] MEDS: NICOTINE 14 MG/24 HR PATCH TRANSDERM SCH (09:00)
[2019-08-17] MEDS: carvediloL 12.5 MG TABLET PO SCH ×2 (09:00→21:20)
[2019-08-17] MEDS: DESCOVY PO SCH (09:00)
[2019-08-17] MEDS: lisinopriL 10 MG TABLET PO SCH (09:00)
[2019-08-17] MEDS: RALTEGRAVIR 400 MG TABLET PO SCH ×2 (09:00→21:18)
[2019-08-17] MEDS ORDERED: fentaNYL 100 MCG/2 ML VIAL IV ONE (10:17)
[2019-08-17] MEDS ORDERED: MIDAZOLAM 2 MG/2 ML VIAL IV ONE ×2 (10:18→11:45)
[2019-08-17] MEDS ORDERED: LIDOCAINE 2% TOP JELLY 5 ML TUBE TOP ONE (10:50)
[2019-08-17] MEDS ORDERED: LIDOCAINE 1% 20 ML VIAL RESP TX ONE (10:50)
[2019-08-17] MEDS ORDERED: LIDOCAINE 1% 50 ML VIAL MISC INJ ONE (10:58)
[2019-08-17] MEDS ORDERED: MIDAZOLAM 2 MG/2 ML VIAL ONE (11:43)
[2019-08-17] MEDS ORDERED: EPINEPHrine 1 MG/ML VIAL ET ONE (11:45)
[2019-08-17] MEDS ORDERED: EPINEPHrine 1 MG/ML VIAL ONE (12:17)
[2019-08-17] MEDS: ENOXAPARIN 40 MG/0.4 ML SYRINGE SUBCUT SCH (18:22)
[2019-08-17] MEDS: FLUCONAZOLE INJ 400 MG in PREMIX 1 EACH IV SCH (22:15)
[2019-08-18] MEDS: ALBUTEROL/IPRATROPIUM 3 ML NEB RESP TX SCH ×7 (00:12→23:45)
[2019-08-18] MEDS: SULFAMETH/TRIMETH INJ 300 MG in DEXTROSE 5% 500 ML IV SCH ×3 (01:10→12:42)
[2019-08-18] MEDS: methylPREDNISolone SOD SUC 40 MG/1 ML VIAL IV SCH ×3 (02:00→17:32)
[2019-08-18] MEDS: AZITHROMYCIN INJ 500 MG in SODIUM CHLORIDE 0.9% 250 ML IV SCH (02:05)
[2019-08-18] MEDS: PIPERACILLIN/TAZOBACTAM 3,375 MG in SODIUM CHLORIDE 0.9% 100 ML IV SCH ×3 (03:30→17:34)
[2019-08-18 05:23] LABS: Basophils % 0.1 % (0.0-0.8); Hematocrit 46.2 VOL% (42.0-52.0); Hemoglobin 15.7 GM/DL (14.0-18.0); Immature Granulocytes % 0.4 %; Immature Granulocytes Absolute 0.04 #; Lymphocytes # 0.7 10*3/uL (1.4-4.0); Lymphocytes % 6.5 % (21.2-54.2); Mean Corpuscular Volume 95.1 FL (87-102); Mean Platelet Volume 10.6 FL (9.6-12.0); Monocytes % 5.7 % (1.7-12.7); Neutrophils % 87.3 % (38.7-73.9); Platelet Count 188 T/CUMM (130-400); Red Blood Count 4.86 MC/CUMM (3.8-5.5); Red Cell Distribution Width 12.8 % (9.3-17.3); White Blood Count 10.9 T/CUMM (4-12)
[2019-08-18 05:42] LABS: Calcium 8.1 MG/DL (8.5-10.1); Osmolality,Calculated 273.2 MOS/KG (273-304)
[2019-08-18] MEDS: lisinopriL 10 MG TABLET PO SCH (09:57)
[2019-08-18] MEDS: NICOTINE 14 MG/24 HR PATCH TRANSDERM SCH (10:00)
[2019-08-18] MEDS: carvediloL 12.5 MG TABLET PO SCH ×2 (10:01→20:50)
[2019-08-18] MEDS: PANTOPRAZOLE 40 MG TABLET PO SCH (10:01)
[2019-08-18] MEDS: DESCOVY PO SCH (10:01)
[2019-08-18] MEDS: RALTEGRAVIR 400 MG TABLET PO SCH ×2 (10:02→20:52)
[2019-08-18 14:00] LABS: CMV PCR Source SPUTUM
[2019-08-18 17:06] LABS: Fungitell Quantitative Value < 31 pg/mL (<60 pg/mL)
[2019-08-18] MEDS: SULFAMETHOX/TRIMETHOPRIM 800-160 MG TABLET PO SCH (17:33)
[2019-08-18] MEDS: ENOXAPARIN 40 MG/0.4 ML SYRINGE SUBCUT SCH (17:34)
[2019-08-18] MEDS: FLUCONAZOLE INJ 400 MG in PREMIX 1 EACH IV SCH (20:50)
[2019-08-19] MEDS: AZITHROMYCIN INJ 500 MG in SODIUM CHLORIDE 0.9% 250 ML IV SCH (00:39)
[2019-08-19] MEDS: methylPREDNISolone SOD SUC 40 MG/1 ML VIAL IV SCH ×2 (02:46→09:23)
[2019-08-19] MEDS: PIPERACILLIN/TAZOBACTAM 3,375 MG in SODIUM CHLORIDE 0.9% 100 ML IV SCH ×3 (02:47→17:35)
[2019-08-19] MEDS: ALBUTEROL/IPRATROPIUM 3 ML NEB RESP TX SCH ×6 (03:29→23:37)
[2019-08-19 06:43] LABS: Basophils % 0.2 % (0.0-0.8); Hematocrit 49.3 VOL% (42.0-52.0); Hemoglobin 16.6 GM/DL (14.0-18.0); Immature Granulocytes % 1.2 %; Immature Granulocytes Absolute 0.13 #; Lymphocytes # 0.6 10*3/uL (1.4-4.0); Lymphocytes % 5.7 % (21.2-54.2); Mean Corpuscular HGB Conc 33.7 GM/DL (32-36); Mean Corpuscular Volume 95.7 FL (87-102); Mean Platelet Volume 10.3 FL (9.6-12.0); Monocytes % 4.1 % (1.7-12.7); Neutrophils % 88.8 % (38.7-73.9); Platelet Count 180 T/CUMM (130-400); Red Blood Count 5.15 MC/CUMM (3.8-5.5); Red Cell Distribution Width 13.1 % (9.3-17.3); White Blood Count 11.2 T/CUMM (4-12)
[2019-08-19 07:31] LABS: Calcium 8.4 MG/DL (8.5-10.1); Osmolality,Calculated 275.2 MOS/KG (273-304)
[2019-08-19] MEDS ORDERED: SODIUM POLYSTYRENE SULFATE 15 GM/60 ML BOTTLE PO ONE (08:24)
[2019-08-19] MEDS: NICOTINE 14 MG/24 HR PATCH TRANSDERM SCH (09:21)
[2019-08-19] MEDS: PANTOPRAZOLE 40 MG TABLET PO SCH (09:21)
[2019-08-19] MEDS: lisinopriL 10 MG TABLET PO SCH (09:22)
[2019-08-19] MEDS: SULFAMETHOX/TRIMETHOPRIM 800-160 MG TABLET PO SCH ×3 (09:22→17:38)
[2019-08-19] MEDS: carvediloL 12.5 MG TABLET PO SCH ×2 (09:23→22:12)
[2019-08-19] MEDS: DESCOVY PO SCH (09:23)
[2019-08-19] MEDS: RALTEGRAVIR 400 MG TABLET PO SCH ×2 (09:24→21:36)
[2019-08-19] MEDS: ENOXAPARIN 40 MG/0.4 ML SYRINGE SUBCUT SCH (17:38)
[2019-08-19] MEDS: FLUCONAZOLE INJ 400 MG in PREMIX 1 EACH IV SCH (21:35)
[2019-08-20] MEDS: PIPERACILLIN/TAZOBACTAM 3,375 MG in SODIUM CHLORIDE 0.9% 100 ML IV SCH ×3 (01:29→17:06)
[2019-08-20] MEDS: ALBUTEROL/IPRATROPIUM 3 ML NEB RESP TX SCH ×5 (03:00→19:28)
[2019-08-20 05:09] LABS: Basophils % 0.2 % (0.0-0.8); Hemoglobin 16.3 GM/DL (14.0-18.0); Immature Granulocytes % 1.5 %; Immature Granulocytes Absolute 0.15 #; Lymphocytes # 0.9 10*3/uL (1.4-4.0); Lymphocytes % 8.5 % (21.2-54.2); Mean Platelet Volume 10.5 FL (9.6-12.0); Monocytes % 9.8 % (1.7-12.7); Platelet Count 161 T/CUMM (130-400)
[2019-08-20 05:41] LABS: Calcium 8.1 MG/DL (8.5-10.1); Osmolality,Calculated 282.5 MOS/KG (273-304)
[2019-08-20] MEDS: carvediloL 12.5 MG TABLET PO SCH ×2 (09:12→20:28)
[2019-08-20] MEDS: NICOTINE 14 MG/24 HR PATCH TRANSDERM SCH (09:12)
[2019-08-20] MEDS: SULFAMETHOX/TRIMETHOPRIM 800-160 MG TABLET PO SCH ×3 (09:12→17:06)
[2019-08-20] MEDS: predniSONE 20 MG TABLET PO SCH (09:12)
[2019-08-20] MEDS: DESCOVY PO SCH (09:13)
[2019-08-20] MEDS: RALTEGRAVIR 400 MG TABLET PO SCH ×2 (09:13→20:29)
[2019-08-20 13:31] LABS: CMV PCR Source SEE COMMENTS
[2019-08-20 13:32] LABS: Histoplasma Immnodiffusion Negative (Negative)
[2019-08-20] MEDS: ENOXAPARIN 40 MG/0.4 ML SYRINGE SUBCUT SCH (17:06)
[2019-08-20 17:16] LABS: % CD4 (T Cells) 12 % (32-64); % CD8 (T Cells) 55 % (8-40); 4/8 Ratio 0.2 (>=0.9)
[2019-08-20] MEDS: FLUCONAZOLE INJ 400 MG in PREMIX 1 EACH IV SCH (20:29)
[2019-08-21] MEDS: ALBUTEROL/IPRATROPIUM 3 ML NEB RESP TX SCH ×3 (00:12→07:14)
[2019-08-21] MEDS: PIPERACILLIN/TAZOBACTAM 3,375 MG in SODIUM CHLORIDE 0.9% 100 ML IV SCH ×2 (02:14→10:05)
[2019-08-21 05:48] LABS: Basophils % 0.4 % (0.0-0.8); Eosinophils % 0.1 % (0.00-10.9); Hematocrit 47.1 VOL% (42.0-52.0); Hemoglobin 16.1 GM/DL (14.0-18.0); Immature Granulocytes % 1.4 %; Immature Granulocytes Absolute 0.11 #; Lymphocytes # 1.3 10*3/uL (1.4-4.0); Lymphocytes % 16.5 % (21.2-54.2); Mean Corpuscular HGB Conc 34.2 GM/DL (32-36); Mean Corpuscular Volume 95.2 FL (87-102); Mean Platelet Volume 10.1 FL (9.6-12.0); Monocytes % 13.3 % (1.7-12.7); Neutrophils % 68.3 % (38.7-73.9); Platelet Count 152 T/CUMM (130-400); Red Blood Count 4.95 MC/CUMM (3.8-5.5); White Blood Count 7.6 T/CUMM (4-12)
[2019-08-21 06:00] LABS: Calcium 8.1 MG/DL (8.5-10.1); Osmolality,Calculated 270.2 MOS/KG (273-304)
[2019-08-21 07:46] LABS: Pneumocystis jiroveci Result Negative (Negative); Pneumocystis jiroveci Source SEE COMMENTS
[2019-08-21 08:01] LABS: M. Tuberculosis PCR Result Negative (Negative); M. Tuberculosis PCR Source SEE COMMENTS
[2019-08-21 08:03] LABS: Histo/Blasto PCR Result Negative; Histo/Blasto Source RIGHT LUNG SPECIMEN
[2019-08-21 08:03] LABS: Histo/Blasto PCR Result Negative; Histo/Blasto Source LEFT LUNG SPECIMEN
[2019-08-21] MEDS: NICOTINE 14 MG/24 HR PATCH TRANSDERM SCH (09:02)
[2019-08-21] MEDS: SULFAMETHOX/TRIMETHOPRIM 800-160 MG TABLET PO SCH (09:02)
[2019-08-21] MEDS: predniSONE 20 MG TABLET PO SCH (09:02)
[2019-08-21] MEDS: carvediloL 12.5 MG TABLET PO SCH (09:03)
[2019-08-21] MEDS: DESCOVY PO SCH (09:03)
[2019-08-21] MEDS: RALTEGRAVIR 400 MG TABLET PO SCH (09:04)
[2019-08-21 12:26] VITALS: BP 121/61
== END 2019-08-21 12:55 | disposition home or self-care (01) | DRG 194 ==
LOC: N.ED 21:46 → N.EDINP 08-11 01:26 → SUATTDRO 08-11 01:26 → N.CC 08-11 02:34 → N.5E 08-15 16:58
PROVIDERS: ADMIT Internal Medicine; ATTEND Internal Medicine

== ENCOUNTER 2020-01-18 19:29 | Inpatient (IN) ==
[~2020-01-18 19:29] MED LIST: ENOXAPARIN 40 MG/0.4 ML SYRINGE SUBCUT SCH
[2020-01-18] MEDS ORDERED: methylPREDNISolone SOD SUC 125 MG/2 ML VIAL IV STA (20:16)
[2020-01-18] MEDS ORDERED: AZITHROMYCIN INJ 500 MG in SODIUM CHLORIDE 0.9% 250 ML IV STA (20:16)
[2020-01-18] MEDS ORDERED: FUROSEMIDE 40 MG/4 ML VIAL IV STA (20:16)
[2020-01-18] MEDS: TERBUTALINE 1 MG/1 ML VIAL SUBCUT SCH ×2 (20:40→21:14)
[2020-01-18] MEDS ORDERED: RALTEGRAVIR 400 MG TABLET PO SCH (21:00)
[2020-01-18 21:24] LABS: Basophils % 0.5 % (0.0-0.8); Hemoglobin 15.3 GM/DL (14.0-18.0); Immature Granulocytes % 0.6 %; Immature Granulocytes Absolute 0.04 #; Lymphocytes # 0.7 10*3/uL (1.4-4.0); Lymphocytes % 11.9 % (21.2-54.2); Mean Corpuscular HGB Conc 30.5 GM/DL (32-36); Mean Corpuscular Volume 96.2 FL (87-102); Monocytes % 10.8 % (1.7-12.7); Neutrophils % 76.2 % (38.7-73.9); Platelet Count 168 T/CUMM (130-400); Red Blood Count 5.22 MC/CUMM (3.8-5.5); Red Cell Distribution Width 15.4 % (9.3-17.3); White Blood Count 6.2 T/CUMM (4-12)
[2020-01-18 21:25] LABS: Hematocrit 50.2 VOL% (42.0-52.0)
[2020-01-18 21:28] LABS: Albumin 3.2 G/DL (3.4-5.0); Bilirubin,Total 0.8 MG/DL (0.2-1.0); CKMB % 5.6 %; Calcium 8.6 MG/DL (8.5-10.1); Ferritin 63.3 ng/ml (26-388); Osmolality,Calculated 272.1 MOS/KG (273-304); Total Protein 6.8 G/DL (6.4-8.3)
[2020-01-18 21:33] LABS: Troponin I 0.119 NG/ML (0.00-0.045)
[2020-01-18 21:48] LABS: Apearance,Urine CLEAR (Clear); Bilirubin,Urine Negative (Negative); Blood, Urine Small mg/dL (Negative); Glucose,Urine (UA) Negative (Negative); Ketones,Urine Negative (Negative); Mucus,Urine Occasional /LPF (Occasional); Nitrite,Urine Negative (Negative); Protein,Urine 100 MG/DL; Urine Color Straw (Yellow); Urine Specific Gravity 1.005 (1.001-1.035); Urine Urobilinogen < 2.0 EU/DL (0.2-1.0); WBC,Urine <1 /HPF (0-6)
[2020-01-18 21:57] LABS: INR 1.1; PT Patient Result 11.9 SECS (9.8-11.9); Partial Thromboplastin Time 30.9 SECS (23.9-33.8)
[2020-01-18 22:00] LABS: Barbiturates Screen,Urine Negative (Negative); Benzodiazepines Screen,Urine Negative (Negative); Cannabinoid Screen,Urine Negative (Negative); Opiate Screen,Urine Negative (Negative); Phencyclidine Screen,Urine Negative (Negative)
[2020-01-18] MEDS ORDERED: METOPROLOL TARTRATE 5 MG/5 ML VIAL IV ONE (22:26)
[2020-01-18] MEDS ORDERED: METOPROLOL TARTRATE 5 MG/5 ML VIAL IV STA (22:30)
[2020-01-18] MEDS ORDERED: DOCUSATE SODIUM 100 MG CAPSULE PO PRN (23:51)
[2020-01-18] MEDS ORDERED: ONDANSETRON 4 MG/2 ML VIAL IV PRN (23:51)
[2020-01-18] MEDS ORDERED: ACETAMINOPHEN 325 MG TABLET PO PRN (23:51)
[2020-01-19] MEDS ORDERED: LORazepam 2 MG/1 ML VIAL IV PRN (00:19)
[2020-01-19] MEDS ORDERED: PIPERACILLIN/TAZOBACTAM 3,375 MG in SODIUM CHLORIDE 0.9% 100 ML IV SCH (01:30)
[2020-01-19 02:08] LABS: Basophils % 0.2 % (0.0-0.8); Hematocrit 49.6 VOL% (42.0-52.0); Hemoglobin 15.5 GM/DL (14.0-18.0); Immature Granulocytes % 0.3 %; Immature Granulocytes Absolute 0.02 #; Lymphocytes # 0.2 10*3/uL (1.4-4.0); Lymphocytes % 3.6 % (21.2-54.2); Mean Corpuscular HGB Conc 31.3 GM/DL (32-36); Mean Corpuscular Volume 94.5 FL (87-102); Mean Platelet Volume 10.8 FL (9.6-12.0); Monocytes % 2.3 % (1.7-12.7); Neutrophils % 93.6 % (38.7-73.9); Platelet Count 161 T/CUMM (130-400); Red Blood Count 5.25 MC/CUMM (3.8-5.5); Red Cell Distribution Width 15.3 % (9.3-17.3); White Blood Count 6.6 T/CUMM (4-12)
[2020-01-19] MEDS: PIPERACILLIN/TAZOBACTAM 3,375 MG in SODIUM CHLORIDE 0.9% 100 ML IV SCH ×3 (02:08→17:19)
[2020-01-19] MEDS: POTASSIUM CHLORIDE 10 MEQ TABLET PO SCH ×3 (02:08→21:31)
[2020-01-19 02:38] LABS: Calcium 8.9 MG/DL (8.5-10.1); Osmolality,Calculated 271.2 MOS/KG (273-304)
[2020-01-19 02:59] LABS: Lymphocytes 1 % (20-55); Segmented Neutrophils 99 % (50-85); Total Cells Counted 100
[2020-01-19 03:00] LABS: Platelet Estimate Normal
[2020-01-19 03:03] LABS: Stomatocytes Few
[2020-01-19 03:04] LABS: Hypochromasia Slight; Macrocytosis Slight; Polychromasia Slight
[2020-01-19] MEDS: LEVOFLOXACIN INJ 750 MG in PREMIX 1 EACH IV SCH (07:00)
[2020-01-19] MEDS ORDERED: EMTRICITABINE TENOFOVIR ALAFEN PO SCH (09:00)
[2020-01-19] MEDS ORDERED: RALTEGRAVIR 400 MG TABLET PO SCH (09:00)
[2020-01-19] MEDS: LOSARTAN 25 MG TABLET PO SCH (10:05)
[2020-01-19] MEDS: FUROSEMIDE 40 MG/4 ML VIAL IV SCH ×2 (10:05→17:58)
[2020-01-19] MEDS: ENOXAPARIN 40 MG/0.4 ML SYRINGE SUBCUT SCH (10:07)
[2020-01-19] MEDS: BUDESONIDE/FORMOTEROL 160-4.5 INHALER 6 GM INH SCH ×2 (13:06→21:31)
[2020-01-20] MEDS: PIPERACILLIN/TAZOBACTAM 3,375 MG in SODIUM CHLORIDE 0.9% 100 ML IV SCH ×2 (02:03→10:45)
[2020-01-20] MEDS: FUROSEMIDE 40 MG/4 ML VIAL IV SCH ×2 (09:08→16:15)
[2020-01-20] MEDS: LEVOFLOXACIN INJ 750 MG in PREMIX 1 EACH IV SCH (09:08)
[2020-01-20] MEDS: POTASSIUM CHLORIDE 10 MEQ TABLET PO SCH ×2 (09:09→20:36)
[2020-01-20] MEDS: BUDESONIDE/FORMOTEROL 160-4.5 INHALER 6 GM INH SCH ×2 (09:09→20:37)
[2020-01-20] MEDS: ENOXAPARIN 40 MG/0.4 ML SYRINGE SUBCUT SCH (09:09)
[2020-01-20] MEDS: LOSARTAN 25 MG TABLET PO SCH (09:09)
[2020-01-20 09:17] LABS: Calcium 8.4 MG/DL (8.5-10.1); Osmolality,Calculated 273.1 MOS/KG (273-304)
[2020-01-20] MEDS: metOLazone 5 MG TABLET PO SCH (15:35)
[2020-01-21] MEDS: metOLazone 5 MG TABLET PO SCH (08:25)
[2020-01-21] MEDS: LOSARTAN 25 MG TABLET PO SCH (08:25)
[2020-01-21] MEDS: POTASSIUM CHLORIDE 10 MEQ TABLET PO SCH ×2 (08:25→20:42)
[2020-01-21] MEDS: BUDESONIDE/FORMOTEROL 160-4.5 INHALER 6 GM INH SCH ×2 (08:26→20:43)
[2020-01-21] MEDS: ENOXAPARIN 40 MG/0.4 ML SYRINGE SUBCUT SCH ×3 (08:26→20:43)
[2020-01-21] MEDS: FUROSEMIDE 40 MG/4 ML VIAL IV SCH ×2 (08:58→15:06)
[2020-01-21 09:33] LABS: Calcium 8.6 MG/DL (8.5-10.1); Osmolality,Calculated 269.2 MOS/KG (273-304)
[2020-01-21] MEDS: MIDODRINE 2.5 MG TABLET PO SCH ×2 (12:34→20:43)
[2020-01-22 06:49] LABS: Basophils % 0.4 % (0.0-0.8); Eosinophils % 0.4 % (0.00-10.9); Hematocrit 46.9 VOL% (42.0-52.0); Immature Granulocytes % 0.2 %; Immature Granulocytes Absolute 0.01 #; Lymphocytes % 20.7 % (21.2-54.2); Mean Corpuscular Volume 93.1 FL (87-102); Mean Platelet Volume 11.2 FL (9.6-12.0); Monocytes % 13.9 % (1.7-12.7); Neutrophils % 64.4 % (38.7-73.9); Platelet Count 120 T/CUMM (130-400); Red Blood Count 5.04 MC/CUMM (3.8-5.5); Red Cell Distribution Width 15.7 % (9.3-17.3); White Blood Count 4.8 T/CUMM (4-12)
[2020-01-22 07:12] LABS: Calcium 8.5 MG/DL (8.5-10.1)
[2020-01-22 07:15] LABS: Hypochromasia 1+; Platelet Estimate Normal
[2020-01-22 07:47] LABS: Osmolality,Calculated 267.4 MOS/KG (273-304)
[2020-01-22] MEDS ORDERED: POTASSIUM CHLORIDE 20 MEQ TABLET PO ONE (08:30)
[2020-01-22] MEDS: POTASSIUM CHLORIDE 20 MEQ TABLET PO SCH ×2 (09:31→21:38)
[2020-01-22] MEDS: MIDODRINE 2.5 MG TABLET PO SCH ×2 (09:32→21:38)
[2020-01-22] MEDS: LOSARTAN 25 MG TABLET PO SCH (09:32)
[2020-01-22] MEDS: metOLazone 5 MG TABLET PO SCH (09:33)
[2020-01-22] MEDS: FUROSEMIDE 40 MG/4 ML VIAL IV SCH ×2 (09:33→16:14)
[2020-01-22] MEDS: BUDESONIDE/FORMOTEROL 160-4.5 INHALER 6 GM INH SCH ×2 (09:33→21:39)
[2020-01-22] MEDS: ENOXAPARIN 40 MG/0.4 ML SYRINGE SUBCUT SCH (21:38)
[2020-01-23 06:42] LABS: Basophils % 0.4 % (0.0-0.8); Eosinophils % 0.6 % (0.00-10.9); Hematocrit 53.9 VOL% (42.0-52.0); Hemoglobin 17.1 GM/DL (14.0-18.0); Immature Granulocytes % 0.2 %; Immature Granulocytes Absolute 0.01 #; Lymphocytes # 0.9 10*3/uL (1.4-4.0); Lymphocytes % 18.3 % (21.2-54.2); Mean Corpuscular HGB Conc 31.7 GM/DL (32-36); Mean Corpuscular Volume 92.6 FL (87-102); Mean Platelet Volume 11.1 FL (9.6-12.0); Monocytes % 12.4 % (1.7-12.7); Neutrophils % 68.1 % (38.7-73.9); Platelet Count 120 T/CUMM (130-400); Red Blood Count 5.82 MC/CUMM (3.8-5.5)
[2020-01-23 07:01] LABS: Hypochromasia 1+
[2020-01-23 07:02] LABS: Microcytosis 1+; Platelet Estimate Adequate
[2020-01-23 07:10] LABS: Calcium 8.7 MG/DL (8.5-10.1); Osmolality,Calculated 272.2 MOS/KG (273-304)
[2020-01-23] MEDS: metOLazone 5 MG TABLET PO SCH (08:57)
[2020-01-23] MEDS: MIDODRINE 2.5 MG TABLET PO SCH ×2 (08:57→21:28)
[2020-01-23] MEDS: LOSARTAN 25 MG TABLET PO SCH (08:58)
[2020-01-23] MEDS: POTASSIUM CHLORIDE 20 MEQ TABLET PO SCH ×2 (08:58→21:28)
[2020-01-23] MEDS: BUDESONIDE/FORMOTEROL 160-4.5 INHALER 6 GM INH SCH ×2 (08:58→21:28)
[2020-01-23] MEDS: FUROSEMIDE 40 MG/4 ML VIAL IV SCH ×2 (08:59→17:04)
[2020-01-23] MEDS ORDERED: TEMAZEPAM 7.5 MG CAPSULE PO PRN (12:21)
[2020-01-23] MEDS: ENOXAPARIN 40 MG/0.4 ML SYRINGE SUBCUT SCH (21:28)
[2020-01-24 06:16] LABS: Basophils % 0.4 % (0.0-0.8); Eosinophils % 0.7 % (0.00-10.9); Hematocrit 53.6 VOL% (42.0-52.0); Hemoglobin 16.9 GM/DL (14.0-18.0); Immature Granulocytes % 0.4 %; Immature Granulocytes Absolute 0.02 #; Lymphocytes # 1.2 10*3/uL (1.4-4.0); Lymphocytes % 20.9 % (21.2-54.2); Mean Corpuscular HGB Conc 31.5 GM/DL (32-36); Mean Corpuscular Volume 91.8 FL (87-102); Mean Platelet Volume 10.9 FL (9.6-12.0); Monocytes % 13.2 % (1.7-12.7); Neutrophils % 64.4 % (38.7-73.9); Platelet Count 127 T/CUMM (130-400); Red Blood Count 5.84 MC/CUMM (3.8-5.5); White Blood Count 5.5 T/CUMM (4-12)
[2020-01-24 06:36] LABS: Hypochromasia 2+
[2020-01-24 06:37] LABS: Microcytosis 1+
[2020-01-24 06:38] LABS: Calcium 8.5 MG/DL (8.5-10.1); Osmolality,Calculated 273.2 MOS/KG (273-304); Ovalocytes Slight; Platelet Estimate Adequate
[2020-01-24] MEDS: metOLazone 5 MG TABLET PO SCH (08:46)
[2020-01-24] MEDS: MIDODRINE 2.5 MG TABLET PO SCH (08:47)
[2020-01-24] MEDS: LOSARTAN 25 MG TABLET PO SCH (08:47)
[2020-01-24] MEDS: POTASSIUM CHLORIDE 20 MEQ TABLET PO SCH (08:47)
[2020-01-24] MEDS: FUROSEMIDE 40 MG/4 ML VIAL IV SCH (08:48)
[2020-01-24] MEDS: BUDESONIDE/FORMOTEROL 160-4.5 INHALER 6 GM INH SCH (08:53)
[2020-01-24 11:40] VITALS: BP 141/104
[2020-01-24] MEDS ORDERED: FUROSEMIDE 40 MG TABLET PO SCH (16:00)
== END 2020-01-24 12:41 | disposition home or self-care (01) | DRG 194 ==
LOC: N.ED 19:29 → N.EDINP 23:12 → SUATTDRO 23:12 → N.TELES 01-19 01:07
PROVIDERS: ADMIT Internal Medicine; ATTEND Internal Medicine

== ENCOUNTER 2020-03-16 18:16 | Inpatient (IN) ==
[2020-03-16 19:17] LABS: Basophils % 0.7 % (0.0-0.8); Eosinophils % 0.3 % (0.00-10.9); Hematocrit 50.2 VOL% (42.0-52.0); Hemoglobin 15.6 GM/DL (14.0-18.0); Immature Granulocytes % 0.3 %; Immature Granulocytes Absolute 0.02 #; Lymphocytes % 16.9 % (21.2-54.2); Mean Corpuscular HGB Conc 31.1 GM/DL (32-36); Mean Corpuscular Hemoglobin 28 PG (27-34); Mean Corpuscular Volume 91.4 FL (87-102); Monocytes # 0.8 10*3/uL (0.11-0.8); Monocytes % 12.6 % (1.7-12.7); Neutrophils # 4.1 10*3/uL (1.4-7.4); Neutrophils % 69.2 % (38.7-73.9); Platelet Count 179 T/CUMM (130-400)
[2020-03-16 19:18] LABS: Anion Gap 8.7 MMOL/L (5.0-15.0); Hgb & Hct Comparison OK; Magnesium 1.9 MG/DL (1.8-2.4); Potassium 3.7 MMOL/L (3.5-5.1)
[2020-03-16 20:13] LABS: Hypochromasia 3+; Macrocytosis Slight; Polychromasia 1+
[2020-03-16 20:14] LABS: Platelet Estimate Normal
[2020-03-16 20:33] LABS: Apearance,Urine CLEAR (Clear); Bilirubin,Urine Negative (Negative); Blood, Urine Small mg/dL (Negative); Glucose,Urine (UA) Negative (Negative); Hyaline Casts,Urine 4 /LPF (0-3); Ketones,Urine Negative (Negative); Nitrite,Urine Negative (Negative); Protein,Urine 100 MG/DL; RBC,Urine <1 /HPF (0-4); Urine Color Yellow (Yellow); Urine Specific Gravity 1.013 (1.001-1.035); Urine Urobilinogen < 2.0 EU/DL (0.2-1.0); WBC,Urine <1 /HPF (0-6)
[2020-03-16 20:34] LABS: Culture Indicated,Urine Not Indicated
[2020-03-16 20:43] LABS: Barbiturates Screen,Urine Negative (Negative); Cannabinoid Screen,Urine Positive (Negative); Phencyclidine Screen,Urine Negative (Negative)
[2020-03-16 20:45] LABS: Was Specimen Discarded? No
[2020-03-16] MEDS ORDERED: FUROSEMIDE 40 MG/4 ML VIAL IV STA (21:14)
[2020-03-16] MEDS ORDERED: FUROSEMIDE 100 MG/10 ML VIAL ONE (21:33)
[2020-03-17] MEDS ORDERED: BISACODYL 5 MG TABLET PO PRN (02:21)
[2020-03-17] MEDS ORDERED: hydrALAZINE 20 MG/1 ML VIAL IV PRN (02:21)
[2020-03-17] MEDS ORDERED: ACETAMINOPHEN 325 MG TABLET PO PRN (02:21)
[2020-03-17] MEDS ORDERED: MAGNESIUM SULF RIDER 2 GM in PREMIX 1 EACH IV PRN (02:27)
[2020-03-17] MEDS ORDERED: MAGNESIUM SULF RIDER 4 GM in PREMIX 1 EACH IV PRN (02:27)
[2020-03-17] MEDS ORDERED: POTASSIUM CHLORIDE 20 MEQ TABLET PO PRN (02:27)
[2020-03-17] MEDS ORDERED: ALBUTEROL/IPRATROPIUM 3 ML NEB RESP TX PRN (03:14)
[2020-03-17 05:15] LABS: Basophils # 0.1 10*3/uL (0.0-0.2); Basophils % 1.2 % (0.0-0.8); Eosinophils % 0.4 % (0.00-10.9); Hematocrit 49.3 VOL% (42.0-52.0); Immature Granulocytes % 0.2 %; Immature Granulocytes Absolute 0.01 #; Lymphocytes # 0.9 10*3/uL (1.4-4.0); Lymphocytes % 18.9 % (21.2-54.2); Mean Corpuscular Hemoglobin 28 PG (27-34); Monocytes # 0.8 10*3/uL (0.11-0.8); Monocytes % 17.5 % (1.7-12.7); Neutrophils % 61.8 % (38.7-73.9); Platelet Count 160 T/CUMM (130-400)
[2020-03-17 05:38] LABS: Anion Gap 8.6 MMOL/L (5.0-15.0); Osmolality,Calculated 276.2 MOS/KG (273-304); Potassium 3.6 MMOL/L (3.5-5.1)
[2020-03-17 05:56] LABS: Hemoglobin 15.1 GM/DL (14.0-18.0); Hgb & Hct Comparison OK
[2020-03-17] MEDS: ENOXAPARIN 40 MG/0.4 ML SYRINGE SUBCUT SCH (06:03)
[2020-03-17 06:54] LABS: Eosinophils 1 % (0-10); Lymphocytes 20 % (20-55); Monocytes 21 % (2-15); Segmented Neutrophils 58 % (50-85); Total Cells Counted 100
[2020-03-17 06:55] LABS: Macrocytosis 1+; Platelet Estimate Normal
[2020-03-17] MEDS ORDERED: MAGNESIUM SULF RIDER 2 GM in PREMIX 1 EACH IV ONE (08:11)
[2020-03-17] MEDS ORDERED: metOLazone 5 MG TABLET PO ONE (08:25)
[2020-03-17] MEDS: MIDODRINE 2.5 MG TABLET PO SCH ×2 (09:17→20:56)
[2020-03-17] MEDS: LOSARTAN 25 MG TABLET PO SCH (09:20)
[2020-03-17] MEDS: POTASSIUM CHLORIDE 20 MEQ TABLET PO SCH ×2 (09:21→20:57)
[2020-03-17] MEDS: FUROSEMIDE 40 MG/4 ML VIAL IV SCH ×2 (10:16→16:01)
[2020-03-17] MEDS: BUDESONIDE/FORMOTEROL 160-4.5 INHALER 6 GM INH SCH ×2 (10:18→20:57)
[2020-03-17] MEDS: EMTRICITABINE TENOFOVIR ALAFEN PO SCH (10:54)
[2020-03-17] MEDS: RALTEGRAVIR 400 MG TABLET PO SCH ×2 (10:54→20:57)
[2020-03-18 04:14] LABS: Anion Gap 5.8 MMOL/L (5.0-15.0); Osmolality,Calculated 272.4 MOS/KG (273-304); Potassium 3.8 MMOL/L (3.5-5.1)
[2020-03-18 04:51] LABS: Basophils % 0.7 % (0.0-0.8); Eosinophils # 0.1 10*3/uL (0.0-0.87); Eosinophils % 0.9 % (0.00-10.9); Hematocrit 49.1 VOL% (42.0-52.0); Hemoglobin 14.9 GM/DL (14.0-18.0); Immature Granulocytes % 0.2 %; Immature Granulocytes Absolute 0.01 #; Lymphocytes % 18.1 % (21.2-54.2); Mean Corpuscular HGB Conc 30.3 GM/DL (32-36); Mean Corpuscular Hemoglobin 29 PG (27-34); Mean Corpuscular Volume 93.9 FL (87-102); Monocytes # 0.9 10*3/uL (0.11-0.8); Monocytes % 15.9 % (1.7-12.7); Neutrophils # 3.4 10*3/uL (1.4-7.4); Neutrophils % 64.2 % (38.7-73.9); Platelet Count 169 T/CUMM (130-400)
[2020-03-18 04:52] LABS: Hgb & Hct Comparison NOT COMPARABLE
[2020-03-18 05:11] LABS: Hypochromasia 1+; Lymphocytes 23 % (20-55); Monocytes 14 % (2-15); Platelet Estimate Adequate; Segmented Neutrophils 63 % (50-85); Total Cells Counted 100
[2020-03-18] MEDS: BUDESONIDE/FORMOTEROL 160-4.5 INHALER 6 GM INH SCH ×2 (09:30→21:41)
[2020-03-18] MEDS: EMTRICITABINE TENOFOVIR ALAFEN PO SCH (09:31)
[2020-03-18] MEDS: RALTEGRAVIR 400 MG TABLET PO SCH ×2 (09:31→21:41)
[2020-03-18] MEDS: LOSARTAN 25 MG TABLET PO SCH (09:31)
[2020-03-18 09:32] LABS: INR 1.1; PT Patient Result 11.8 SECS (9.8-11.9)
[2020-03-18] MEDS: MIDODRINE 2.5 MG TABLET PO SCH ×2 (09:32→21:37)
[2020-03-18] MEDS: POTASSIUM CHLORIDE 20 MEQ TABLET PO SCH ×2 (09:32→21:37)
[2020-03-18] MEDS: FUROSEMIDE 40 MG/4 ML VIAL IV SCH ×2 (09:33→17:01)
[2020-03-18] MEDS: ENOXAPARIN 40 MG/0.4 ML SYRINGE SUBCUT SCH (09:50)
[2020-03-19 04:07] LABS: Basophils # 0.1 10*3/uL (0.0-0.2); Eosinophils % 0.6 % (0.00-10.9); Hematocrit 48.6 VOL% (42.0-52.0); Immature Granulocytes % 0.4 %; Immature Granulocytes Absolute 0.02 #; Lymphocytes # 0.9 10*3/uL (1.4-4.0); Mean Corpuscular HGB Conc 30.2 GM/DL (32-36); Mean Corpuscular Hemoglobin 28 PG (27-34); Mean Corpuscular Volume 93.1 FL (87-102); Monocytes # 0.8 10*3/uL (0.11-0.8); Monocytes % 14.6 % (1.7-12.7); Neutrophils # 3.4 10*3/uL (1.4-7.4); Neutrophils % 65.4 % (38.7-73.9); Platelet Count 157 T/CUMM (130-400)
[2020-03-19 04:40] LABS: Hemoglobin 14.9 GM/DL (14.0-18.0); Hgb & Hct Comparison OK
[2020-03-19 05:05] LABS: Anion Gap 6.3 MMOL/L (5.0-15.0); Magnesium 2.3 MG/DL (1.8-2.4); Osmolality,Calculated 270.5 MOS/KG (273-304); Potassium 3.3 MMOL/L (3.5-5.1)
[2020-03-19 05:10] LABS: Atypical Lymphocytes Few; Eosinophils 2 % (0-10); Hypochromasia 1+; Lymphocytes 26 % (20-55); Monocytes 11 % (2-15); Polychromasia Slight; Segmented Neutrophils 61 % (50-85); Total Cells Counted 100
[2020-03-19 05:11] LABS: Platelet Estimate Adequate
[2020-03-19] MEDS ORDERED: POTASSIUM CHLORIDE 20 MEQ TABLET PO ONE (07:52)
[2020-03-19 09:54] LABS: Lymphocytes,Pleural Fluid 75 %; Monocytes,Pleural Fluid 2 %; Neutrophils,Pleural Fluid 23 %
[2020-03-19 09:57] LABS: RBC,Pleural Fluid 559 T/CUMM
[2020-03-19] MEDS ORDERED: ALBUMIN 25% 50 GM in PREMIX 1 EACH IV ONE (10:08)
[2020-03-19 10:09] LABS: Total Protein,Body Fluid 2.6 G/DL
[2020-03-19] MEDS: MIDODRINE 2.5 MG TABLET PO SCH (10:30)
[2020-03-19] MEDS: FUROSEMIDE 40 MG/4 ML VIAL IV SCH (10:30)
[2020-03-19] MEDS: POTASSIUM CHLORIDE 20 MEQ TABLET PO SCH (10:30)
[2020-03-19] MEDS: LOSARTAN 25 MG TABLET PO SCH (10:31)
[2020-03-19] MEDS: BUDESONIDE/FORMOTEROL 160-4.5 INHALER 6 GM INH SCH (10:32)
[2020-03-19] MEDS: RALTEGRAVIR 400 MG TABLET PO SCH (10:32)
[2020-03-19] MEDS: EMTRICITABINE TENOFOVIR ALAFEN PO SCH (10:32)
[2020-03-19 11:43] VITALS: BP 107/74
== END 2020-03-19 15:15 | disposition home or self-care (01) ==
LOC: N.ED 18:16 → N.EDINP 03-17 02:19 → N.TELES 03-17 04:40
PROVIDERS: ADMIT Internal Medicine; ATTEND Internal Medicine

== ENCOUNTER 2020-06-18 16:58 | Inpatient (IN) ==
[2020-06-18 18:10] LABS: Basophils % 0.6 % (0.0-0.8); Eosinophils % 0.2 % (0.00-10.9); Hematocrit 50.6 VOL% (42.0-52.0); Immature Granulocytes % 0.2 %; Immature Granulocytes Absolute 0.01 #; Lymphocytes # 0.8 10*3/uL (1.4-4.0); Lymphocytes % 16.9 % (21.2-54.2); Mean Corpuscular HGB Conc 31.6 GM/DL (32-36); Mean Corpuscular Volume 96.2 FL (87-102); Mean Platelet Volume 12.5 FL (9.6-12.0); Monocytes % 13.8 % (1.7-12.7); Neutrophils % 68.3 % (38.7-73.9); Platelet Count 134 T/CUMM (130-400); Red Blood Count 5.26 MC/CUMM (3.8-5.5); Red Cell Distribution Width 16.1 % (9.3-17.3); White Blood Count 4.9 T/CUMM (4-12)
[2020-06-18 18:26] LABS: Albumin 3.4 G/DL (3.4-5.0); Bilirubin,Total 1.3 MG/DL (0.2-1.0); Calcium 9.8 MG/DL (8.5-10.1); Osmolality,Calculated 273.1 MOS/KG (273-304); Total Protein 7.7 G/DL (6.4-8.3)
[2020-06-18] MEDS ORDERED: FUROSEMIDE 100 MG/10 ML VIAL ONE (18:44)
[2020-06-18] MEDS ORDERED: FUROSEMIDE 100 MG/10 ML VIAL IV STA (18:49)
[2020-06-18] MEDS ORDERED: FUROSEMIDE 40 MG/4 ML VIAL IV STA (18:55)
[2020-06-18] MEDS ORDERED: MAGNESIUM SULF RIDER 4 GM in PREMIX 1 EACH IV PRN (20:04)
[2020-06-18] MEDS ORDERED: ONDANSETRON 4 MG/2 ML VIAL IV PRN (20:04)
[2020-06-18] MEDS ORDERED: GLUCAGON 1 MG VIAL IM PRN (20:04)
[2020-06-18] MEDS ORDERED: ACETAMINOPHEN 325 MG TABLET PO PRN (20:04)
[2020-06-18] MEDS ORDERED: DEXTROSE 50% 25 GM/50 ML VIAL IV PRN (20:04)
[2020-06-18] MEDS ORDERED: MAGNESIUM SULF RIDER 2 GM in PREMIX 1 EACH IV PRN (20:04)
[2020-06-18] MEDS: carvediloL 3.125 MG TABLET PO SCH (21:27)
[2020-06-18] MEDS: ENOXAPARIN 40 MG/0.4 ML SYRINGE SUBCUT SCH (21:27)
[2020-06-18] MEDS ORDERED: RALTEGRAVIR 400 MG TABLET PO ONE (22:39)
[2020-06-18] MEDS: SACUBITRIL/VALSARTAN 49-51 MG TABLET PO SCH (23:14)
[2020-06-18] MEDS: RALTEGRAVIR 400 MG TABLET PO SCH (23:14)
[2020-06-18] MEDS: BUDESONIDE/FORMOTEROL 160-4.5 INHALER 6 GM INH SCH (23:14)
[2020-06-18] MEDS: AZITHROMYCIN INJ 500 MG in SODIUM CHLORIDE 0.9% 250 ML IV SCH (23:14)
[2020-06-19] MEDS: ALBUTEROL/IPRATROPIUM 3 ML NEB RESP TX SCH ×4 (00:59→19:38)
[2020-06-19 04:22] LABS: Basophils % 0.9 % (0.0-0.8); Eosinophils % 0.5 % (0.00-10.9); Hematocrit 47.5 VOL% (42.0-52.0); Hemoglobin 15.3 GM/DL (14.0-18.0); Immature Granulocytes % 0.2 %; Immature Granulocytes Absolute 0.01 #; Mean Corpuscular HGB Conc 32.2 GM/DL (32-36); Mean Corpuscular Volume 95.8 FL (87-102); Mean Platelet Volume 11.9 FL (9.6-12.0); Neutrophils % 59.4 % (38.7-73.9); Platelet Count 129 T/CUMM (130-400); Red Blood Count 4.96 MC/CUMM (3.8-5.5); White Blood Count 4.3 T/CUMM (4-12)
[2020-06-19 04:52] LABS: Calcium 9.4 MG/DL (8.5-10.1); Osmolality,Calculated 279.8 MOS/KG (273-304)
[2020-06-19 04:53] LABS: Atypical Lymphocytes Few; Hypochromasia Slight; Lymphocytes 25 % (20-55); Microcytosis 1+; Segmented Neutrophils 63 % (50-85); Total Cells Counted 100
[2020-06-19 04:54] LABS: Platelet Estimate Adequate
[2020-06-19] MEDS: FUROSEMIDE 40 MG/4 ML VIAL IV SCH ×2 (11:30→16:57)
[2020-06-19] MEDS: PANTOPRAZOLE 40 MG TABLET PO SCH (11:30)
[2020-06-19] MEDS: carvediloL 3.125 MG TABLET PO SCH ×2 (11:30→21:10)
[2020-06-19] MEDS: BUDESONIDE/FORMOTEROL 160-4.5 INHALER 6 GM INH SCH ×2 (11:30→22:39)
[2020-06-19] MEDS: RALTEGRAVIR 400 MG TABLET PO SCH ×2 (11:47→22:39)
[2020-06-19] MEDS: SACUBITRIL/VALSARTAN 49-51 MG TABLET PO SCH ×2 (12:00→21:10)
[2020-06-19 14:47] LABS: Barbiturates Screen,Urine Negative (Negative); Benzodiazepines Screen,Urine Negative (Negative); Cannabinoid Screen,Urine Negative (Negative); Opiate Screen,Urine Negative (Negative); Phencyclidine Screen,Urine Negative (Negative)
[2020-06-19] MEDS: ENOXAPARIN 40 MG/0.4 ML SYRINGE SUBCUT SCH (21:09)
[2020-06-19] MEDS: AZITHROMYCIN INJ 500 MG in SODIUM CHLORIDE 0.9% 250 ML IV SCH (21:09)
[2020-06-20] MEDS: ALBUTEROL/IPRATROPIUM 3 ML NEB RESP TX SCH ×4 (00:44→19:30)
[2020-06-20 05:51] LABS: Calcium 8.5 MG/DL (8.5-10.1)
[2020-06-20] MEDS: carvediloL 3.125 MG TABLET PO SCH ×2 (08:39→20:45)
[2020-06-20] MEDS: RALTEGRAVIR 400 MG TABLET PO SCH ×2 (10:02→20:47)
[2020-06-20] MEDS: PANTOPRAZOLE 40 MG TABLET PO SCH (10:03)
[2020-06-20] MEDS: BUDESONIDE/FORMOTEROL 160-4.5 INHALER 6 GM INH SCH ×3 (10:04→20:46)
[2020-06-20] MEDS: FUROSEMIDE 40 MG/4 ML VIAL IV SCH (10:04)
[2020-06-20] MEDS: MIDODRINE 2.5 MG TABLET PO SCH ×2 (11:43→20:45)
[2020-06-20] MEDS ORDERED: FUROSEMIDE 40 MG/4 ML VIAL IV SCH (16:00)
[2020-06-20] MEDS: ENOXAPARIN 40 MG/0.4 ML SYRINGE SUBCUT SCH (20:45)
[2020-06-20] MEDS: AZITHROMYCIN INJ 500 MG in SODIUM CHLORIDE 0.9% 250 ML IV SCH (20:46)
[2020-06-21] MEDS: ALBUTEROL/IPRATROPIUM 3 ML NEB RESP TX SCH ×2 (02:13→07:15)
[2020-06-21] MEDS ORDERED: FUROSEMIDE 40 MG TABLET PO SCH (08:00)
[2020-06-21 08:22] LABS: Calcium 8.4 MG/DL (8.5-10.1); Osmolality,Calculated 269.5 MOS/KG (273-304)
[2020-06-21] MEDS: carvediloL 3.125 MG TABLET PO SCH (09:04)
[2020-06-21] MEDS: MIDODRINE 2.5 MG TABLET PO SCH (09:04)
[2020-06-21] MEDS: PANTOPRAZOLE 40 MG TABLET PO SCH (09:04)
[2020-06-21] MEDS: RALTEGRAVIR 400 MG TABLET PO SCH (09:04)
[2020-06-21] MEDS: BUDESONIDE/FORMOTEROL 160-4.5 INHALER 6 GM INH SCH (09:05)
[2020-06-21 12:02] VITALS: BP 104/78
== END 2020-06-21 14:00 | disposition home or self-care (01) | DRG 194 ==
LOC: N.ED 16:58 → N.EDINP 20:04 → SUATTDRO 20:04 → N.3E 06-19 13:43
PROVIDERS: ADMIT Internal Medicine; ATTEND Family Medicine

== ENCOUNTER 2020-06-24 08:55 | Observation (INO) ==
[2020-06-24] MEDS ORDERED: MORPHINE 4 MG/1 ML VIAL IV STA (09:21)
[2020-06-24] MEDS ORDERED: FUROSEMIDE 40 MG/4 ML VIAL IV STA (09:21)
[2020-06-24 09:46] LABS: Basophils # 0.1 10*3/uL (0.0-0.2); Basophils % 1.1 % (0.0-0.8); Eosinophils % 0.2 % (0.00-10.9); Hematocrit 50.9 VOL% (42.0-52.0); Hemoglobin 15.5 GM/DL (14.0-18.0); Immature Granulocytes % 0.2 %; Immature Granulocytes Absolute 0.01 #; Lymphocytes # 0.9 10*3/uL (1.4-4.0); Lymphocytes % 18.5 % (21.2-54.2); Mean Corpuscular HGB Conc 30.5 GM/DL (32-36); Mean Corpuscular Volume 101.2 FL (87-102); Mean Platelet Volume 11.2 FL (9.6-12.0); Platelet Count 123 T/CUMM (130-400); Red Blood Count 5.03 MC/CUMM (3.8-5.5); Red Cell Distribution Width 16.2 % (9.3-17.3); White Blood Count 4.7 T/CUMM (4-12)
[2020-06-24 10:14] LABS: Albumin 3.5 G/DL (3.4-5.0); Bilirubin,Total 1.3 MG/DL (0.2-1.0); Calcium 8.8 MG/DL (8.5-10.1); Osmolality,Calculated 277.8 MOS/KG (273-304); Total Protein 7.5 G/DL (6.4-8.3)
[2020-06-24 10:18] LABS: Bilirubin,Urine Negative (Negative); Blood, Urine Small mg/dL (Negative); Glucose,Urine (UA) Negative (Negative); Hyaline Casts,Urine 3 /LPF (0-3); Ketones,Urine Negative (Negative); Mucus,Urine Occasional /LPF (Occasional); Nitrite,Urine Negative (Negative); Protein,Urine >=500 MG/DL; RBC,Urine 1 /HPF (0-4); Urine Appearance CLEAR (Clear); Urine Color Yellow (Yellow); Urine Specific Gravity 1.012 (1.001-1.035); Urine Urobilinogen < 2.0 EU/DL (0.2-1.0); WBC,Urine <1 /HPF (0-6)
[2020-06-24 10:24] LABS: Barbiturates Screen,Urine Negative (Negative); Benzodiazepines Screen,Urine Negative (Negative); Cannabinoid Screen,Urine Negative (Negative); Opiate Screen,Urine Positive (Negative); Phencyclidine Screen,Urine Negative (Negative)
[2020-06-24] MEDS ORDERED: BUDESONIDE/FORMOTEROL 160-4.5 INHALER 6 GM INH PRN (11:07)
[2020-06-24] MEDS ORDERED: FUROSEMIDE 40 MG TABLET PO SCH (12:00)
[2020-06-24 13:12] LABS: INR 1.2; PT Patient Result 12.9 SECS (9.8-11.9)
[2020-06-24] MEDS: carvediloL 3.125 MG TABLET PO SCH (15:19)
[2020-06-24] MEDS ORDERED: ONDANSETRON 4 MG/2 ML VIAL IV PRN (17:18)
[2020-06-24] MEDS ORDERED: ALUMINUM/MAGNES/SIMETH MAX STR 30 ML UDCUP PO PRN (17:18)
[2020-06-24] MEDS ORDERED: ACETAMINOPHEN 325 MG TABLET PO PRN (17:18)
[2020-06-24] MEDS ORDERED: DEXTROSE 50% 25 GM/50 ML VIAL IV PRN (17:18)
[2020-06-24] MEDS ORDERED: BISACODYL 5 MG TABLET PO PRN (17:18)
[2020-06-24] MEDS ORDERED: DOCUSATE SODIUM 100 MG CAPSULE PO PRN (17:18)
[2020-06-24] MEDS ORDERED: CALCIUM CARBONATE CHEW 500 MG TABLET PO PRN (17:18)
[2020-06-24] MEDS ORDERED: SIMETHICONE CHEW 125 MG TABLET PO PRN (17:18)
[2020-06-24] MEDS ORDERED: LACTULOSE 20 GM/30 ML UDCUP PO PRN (17:18)
[2020-06-24] MEDS ORDERED: ZALEPLON 5 MG CAPSULE PO PRN (17:18)
[2020-06-24] MEDS ORDERED: hydrALAZINE 20 MG/1 ML VIAL IV PRN (17:18)
[2020-06-24] MEDS ORDERED: traZODone 50 MG TABLET PO PRN (17:18)
[2020-06-24] MEDS ORDERED: GLUCAGON 1 MG VIAL IM PRN (17:18)
[2020-06-24] MEDS: FUROSEMIDE 40 MG/4 ML VIAL IV SCH (20:06)
[2020-06-25] MEDS: RALTEGRAVIR 400 MG TABLET PO SCH ×2 (02:44→15:04)
[2020-06-25] MEDS: carvediloL 3.125 MG TABLET PO SCH ×2 (02:44→11:14)
[2020-06-25 06:10] LABS: Basophils % 0.8 % (0.0-0.8); Hematocrit 49.8 VOL% (42.0-52.0); Hemoglobin 15.4 GM/DL (14.0-18.0); Immature Granulocytes % 0.4 %; Immature Granulocytes Absolute 0.02 #; Lymphocytes # 0.8 10*3/uL (1.4-4.0); Lymphocytes % 16.7 % (21.2-54.2); Mean Corpuscular HGB Conc 30.9 GM/DL (32-36); Mean Corpuscular Volume 99.4 FL (87-102); Mean Platelet Volume 12.1 FL (9.6-12.0); Neutrophils % 70.1 % (38.7-73.9); Platelet Count 119 T/CUMM (130-400); Red Blood Count 5.01 MC/CUMM (3.8-5.5); Red Cell Distribution Width 16.1 % (9.3-17.3); White Blood Count 4.9 T/CUMM (4-12)
[2020-06-25] MEDS ORDERED: PANTOPRAZOLE 40 MG TABLET PO SCH (09:00)
[2020-06-25] MEDS: FUROSEMIDE 40 MG/4 ML VIAL IV SCH (11:14)
[2020-06-25 11:38] VITALS: BP 105/76
[2020-06-25] MEDS ORDERED: NON-FORMULARY MEDICATION (Emtricitabine-Tenofovir Alafen [Descovy] 200-25 mg tablet) PO SCH (12:00)
[2020-06-26] MEDS ORDERED: ASPIRIN EC 81 MG TABLET PO SCH (09:00)
== END 2020-06-25 17:51 | disposition home or self-care (01) ==
LOC: N.EDINP 08:55 → N.ED 08:55 → SUATTDRO 11:10 → N.3E 15:51
PROVIDERS: ADMIT Internal Medicine; ATTEND Internal Medicine

== ENCOUNTER 2021-09-22 13:51 | Inpatient (IN) ==
[2021-09-22 16:42] LABS: Basophils % 0.2 % (0.0-0.8); Hematocrit 40.6 VOL% (42.0-52.0); Hemoglobin 13.9 GM/DL (14.0-18.0); Immature Granulocytes % 1.4 %; Immature Granulocytes Absolute 0.12 #; Lymphocytes # 0.6 10*3/uL (1.4-4.0); Lymphocytes % 6.7 % (21.2-54.2); Mean Corpuscular HGB Conc 34.2 GM/DL (32-36); Mean Corpuscular Volume 88.8 FL (87-102); Mean Platelet Volume 10.8 FL (9.6-12.0); Monocytes % 7.1 % (1.7-12.7); Neutrophils % 84.6 % (38.7-73.9); Platelet Count 177 T/CUMM (130-400); Red Blood Count 4.57 MC/CUMM (3.8-5.5); Red Cell Distribution Width 14.3 % (9.3-17.3); White Blood Count 8.4 T/CUMM (4-12)
[2021-09-22 17:06] LABS: Bilirubin,Total 0.8 MG/DL (0.20-1.00); Calcium 8.3 MG/DL (8.5-10.1); Osmolality,Calculated 269.1 MOS/KG (273-304); Potassium 3.9 MMOL/L (3.5-5.1); Total Protein 8.2 G/DL (6.4-8.2)
[2021-09-22] MEDS ORDERED: PIPERACILLIN/TAZOBACTAM 3,375 MG in SODIUM CHLORIDE 0.9% 100 ML IV STA (21:44)
[2021-09-22] MEDS ORDERED: ALBUTEROL/IPRATROPIUM 3 ML NEB RESP TX STA (21:44)
[2021-09-22] MEDS ORDERED: methylPREDNISolone SOD SUC 125 MG/2 ML VIAL IV STA (21:44)
[2021-09-22] MEDS ORDERED: ONDANSETRON 4 MG/2 ML VIAL IV STA (21:44)
[2021-09-22] MEDS ORDERED: SODIUM CHLORIDE 0.9% 500 ML IV STA (21:48)
[2021-09-22] MEDS ORDERED: FUROSEMIDE 20 MG/2 ML VIAL IV STA (21:54)
[2021-09-22] MEDS ORDERED: FUROSEMIDE 40 MG/4 ML VIAL IV STA (22:02)
[2021-09-22] MEDS ORDERED: FUROSEMIDE 40 MG/4 ML VIAL ONE (22:03)
[2021-09-22] MEDS ORDERED: GLUCAGON 1 MG VIAL IM PRN (22:25)
[2021-09-22] MEDS ORDERED: ENOXAPARIN 40 MG/0.4 ML SYRINGE SUBCUT SCH (22:30)
[2021-09-22] MEDS ORDERED: LACTATED RINGERS 1,000 ML IV SCH (22:30)
[2021-09-22] MEDS ORDERED: ENOXAPARIN 100 MG/ML SYRINGE SUBCUT STA (22:31)
[2021-09-22] MEDS ORDERED: ENOXAPARIN 60 MG/0.6 ML SYRINGE SUBCUT STA ×2 (22:33→23:21)
[2021-09-22] MEDS: cefTRIAXone 2,000 MG in SODIUM CHLORIDE 0.9% 100 ML IV SCH (23:54)
[2021-09-23] MEDS ORDERED: FUROSEMIDE 40 MG TABLET PO SCH
[2021-09-23] MEDS: ALBUTEROL 2.5 MG/3 ML NEB RESP TX SCH ×4 (00:25→19:00)
[2021-09-23] MEDS: AZITHROMYCIN INJ 500 MG in SODIUM CHLORIDE 0.9% 250 ML IV SCH ×2 (01:44→23:00)
[2021-09-23 02:23] LABS: Bacteria,Urine Occasional /HPF (Few); Bilirubin,Urine Negative (Negative); Blood, Urine Small mg/dL (Negative); Glucose,Urine (UA) Negative (Negative); Ketones,Urine Negative (Negative); Mucus,Urine Occasional /LPF (Occasional); Nitrite,Urine Negative (Negative); Protein,Urine 30 MG/DL; RBC,Urine 1 /HPF (0-4); Squamous Epithelial Cell,Urine Occasional /HPF (0-10); Urine Appearance CLEAR (Clear); Urine Color Straw (Yellow); Urine Specific Gravity 1.006 (1.001-1.035); Urine Urobilinogen < 2.0 EU/DL (<2.0)
[2021-09-23 03:32] LABS: Barbiturates Screen,Urine Negative (Negative); Benzodiazepines Screen,Urine Negative (Negative); Cannabinoid Screen,Urine Negative (Negative); Opiate Screen,Urine Negative (Negative); Phencyclidine Screen,Urine Negative (Negative)
[2021-09-23 05:24] LABS: Basophils % 0.1 % (0.0-0.8); Hematocrit 38.8 VOL% (42.0-52.0); Hemoglobin 13.3 GM/DL (14.0-18.0); Immature Granulocytes % 1.1 %; Lymphocytes # 0.4 10*3/uL (1.4-4.0); Lymphocytes % 4.6 % (21.2-54.2); Mean Corpuscular HGB Conc 34.3 GM/DL (32-36); Mean Platelet Volume 10.2 FL (9.6-12.0); Monocytes % 2.7 % (1.7-12.7); Neutrophils % 91.5 % (38.7-73.9); Platelet Count 155 T/CUMM (130-400); Red Blood Count 4.31 MC/CUMM (3.8-5.5); Red Cell Distribution Width 14.2 % (9.3-17.3); White Blood Count 8.9 T/CUMM (4-12)
[2021-09-23 05:41] LABS: Calcium 8.2 MG/DL (8.5-10.1); Osmolality,Calculated 271.9 MOS/KG (273-304); Potassium 3.5 MMOL/L (3.5-5.1)
[2021-09-23 05:57] LABS: Band Neutrophils 3 % (0-10); Lymphocytes 2 % (20-55); Platelet Estimate Adequate; Segmented Neutrophils 92 % (50-85); Total Cells Counted 100
[2021-09-23] MEDS: methylPREDNISolone SOD SUC 40 MG/1 ML VIAL IV SCH ×3 (06:13→22:10)
[2021-09-23] MEDS: PANTOPRAZOLE 40 MG TABLET PO SCH (09:23)
[2021-09-23] MEDS ORDERED: SODIUM CHLORIDE 0.9% 500 ML IV ONE (12:46)
[2021-09-23] MEDS: DIGOXIN 0.125 MG TABLET PO SCH (16:35)
[2021-09-23] MEDS: ENOXAPARIN 60 MG/0.6 ML SYRINGE SUBCUT SCH (16:35)
[2021-09-23] MEDS ORDERED: ENOXAPARIN 40 MG/0.4 ML SYRINGE SUBCUT SCH (21:00)
[2021-09-23] MEDS: cefTRIAXone 2,000 MG in SODIUM CHLORIDE 0.9% 100 ML IV SCH (22:10)
[2021-09-24] MEDS: ALBUTEROL 2.5 MG/3 ML NEB RESP TX SCH ×4 (00:36→19:05)
[2021-09-24] MEDS: methylPREDNISolone SOD SUC 40 MG/1 ML VIAL IV SCH ×3 (05:56→21:09)
[2021-09-24 06:51] LABS: Basophils % 0.1 % (0.0-0.8); Hematocrit 32.4 VOL% (42.0-52.0); Immature Granulocytes % 1.6 %; Immature Granulocytes Absolute 0.11 #; Lymphocytes # 0.5 10*3/uL (1.4-4.0); Lymphocytes % 7.9 % (21.2-54.2); Mean Corpuscular Volume 92.8 FL (87-102); Mean Platelet Volume 10.2 FL (9.6-12.0); Monocytes % 8.7 % (1.7-12.7); Neutrophils % 81.7 % (38.7-73.9); Platelet Count 165 T/CUMM (130-400); Red Blood Count 3.49 MC/CUMM (3.8-5.5); Red Cell Distribution Width 14.5 % (9.3-17.3); White Blood Count 6.7 T/CUMM (4-12)
[2021-09-24 06:53] LABS: Hemoglobin 10.7 GM/DL (14.0-18.0)
[2021-09-24 07:00] LABS: Calcium 7.7 MG/DL (8.5-10.1); Osmolality,Calculated 286.8 MOS/KG (273-304); Potassium 3.7 MMOL/L (3.5-5.1)
[2021-09-24] MEDS: ENOXAPARIN 60 MG/0.6 ML SYRINGE SUBCUT SCH ×2 (09:53→21:09)
[2021-09-24] MEDS: NICOTINE 21 MG/24 HR PATCH TRANSDERM SCH (09:53)
[2021-09-24] MEDS: PANTOPRAZOLE 40 MG TABLET PO SCH (09:54)
[2021-09-24] MEDS: DIGOXIN 0.125 MG TABLET PO SCH (15:11)
[2021-09-24] MEDS: FUROSEMIDE 40 MG TABLET PO SCH (15:16)
[2021-09-24 16:56] LABS: % CD4 (T Cells) 11 % (32-64); % CD8 (T Cells) 41 % (8-40); 4/8 Ratio 0.3 (>=0.9)
[2021-09-24] MEDS ORDERED: METOPROLOL TARTRATE 5 MG/5 ML VIAL IV ONE (18:06)
[2021-09-24] MEDS ORDERED: carvediloL 3.125 MG TABLET PO SCH (21:00)
[2021-09-24] MEDS ORDERED: FUROSEMIDE 80 MG TABLET PO SCH (21:00)
[2021-09-24] MEDS: cefTRIAXone 2,000 MG in SODIUM CHLORIDE 0.9% 100 ML IV SCH (23:36)
[2021-09-24] MEDS: AZITHROMYCIN INJ 500 MG in SODIUM CHLORIDE 0.9% 250 ML IV SCH (23:36)
[2021-09-25] MEDS: ALBUTEROL 2.5 MG/3 ML NEB RESP TX SCH ×2 (02:00→07:03)
[2021-09-25] MEDS: methylPREDNISolone SOD SUC 40 MG/1 ML VIAL IV SCH ×3 (06:51→21:53)
[2021-09-25] MEDS ORDERED: methylPREDNISolone SOD SUC 40 MG/1 ML VIAL IV ONE (07:47)
[2021-09-25] MEDS ORDERED: FUROSEMIDE 40 MG/4 ML VIAL IV ONE (07:48)
[2021-09-25 07:56] LABS: Basophils % 0.2 % (0.0-0.8); Hematocrit 36.9 VOL% (42.0-52.0); Hemoglobin 11.7 GM/DL (14.0-18.0); Immature Granulocytes % 1.6 %; Immature Granulocytes Absolute 0.22 #; Lymphocytes % 6.9 % (21.2-54.2); Mean Corpuscular HGB Conc 31.7 GM/DL (32-36); Mean Corpuscular Volume 95.8 FL (87-102); Mean Platelet Volume 9.9 FL (9.6-12.0); Monocytes % 8.2 % (1.7-12.7); Neutrophils % 83.1 % (38.7-73.9); Platelet Count 236 T/CUMM (130-400); Red Blood Count 3.85 MC/CUMM (3.8-5.5); Red Cell Distribution Width 14.6 % (9.3-17.3); White Blood Count 14.1 T/CUMM (4-12)
[2021-09-25] MEDS: SULFAMETHOX/TRIMETHOPRIM 800-160 MG TABLET PO SCH (08:09)
[2021-09-25] MEDS: PANTOPRAZOLE 40 MG TABLET PO SCH (08:10)
[2021-09-25] MEDS: NICOTINE 21 MG/24 HR PATCH TRANSDERM SCH (08:11)
[2021-09-25] MEDS: ENOXAPARIN 60 MG/0.6 ML SYRINGE SUBCUT SCH ×2 (08:13→21:53)
[2021-09-25 08:16] LABS: Calcium 8.4 MG/DL (8.5-10.1); Osmolality,Calculated 290.4 MOS/KG (273-304); Potassium 4.2 MMOL/L (3.5-5.1)
[2021-09-25] MEDS: FUROSEMIDE 40 MG TABLET PO SCH (08:28)
[2021-09-25] MEDS ORDERED: PANTOPRAZOLE 40 MG TABLET PO SCH (09:00)
[2021-09-25] MEDS ORDERED: carvediloL 6.25 MG TABLET PO SCH (09:00)
[2021-09-25 09:06] LABS: ABG Base Excess 5.9 MMOL/L (-2.5-2.5); ABG HCO3 34.8 MMOL/L (20-26); ABG Oxygen Saturation 36.5 % (95-100); ABG PH 7.282 (7.35-7.45); ABG TCO2 37.2 MMOL/L (23-27)
[2021-09-25 09:10] LABS: ABG PCO2 75.5 MM HG (35-48)
[2021-09-25] MEDS ORDERED: SODIUM CHLORIDE 0.9% 500 ML IV ONE (09:57)
[2021-09-25] MEDS ORDERED: SODIUM BICARBONATE 50 MEQ/50 ML VIAL IV ONE (09:58)
[2021-09-25] MEDS: DILTIAZEM INJ 100 MG in SODIUM CHLORIDE 0.9% 100 ML IV SCH (11:00)
[2021-09-25] MEDS: LORazepam 1 MG TABLET PO PRN (11:25)
[2021-09-25 11:59] LABS: PT Patient Result 10.7 SECS (10.5-12.0)
[2021-09-25] MEDS ORDERED: DIGOXIN 0.5 MG/2 ML AMP IV ONE (12:42)
[2021-09-25] MEDS: LEVALBUTEROL 0.63 MG/3 ML NEB RESP TX PRN (14:58)
[2021-09-25] MEDS: FUROSEMIDE 40 MG/4 ML VIAL IV SCH (15:57)
[2021-09-25] MEDS: DIGOXIN 0.125 MG TABLET PO SCH ×3 (18:19→20:19)
[2021-09-25] MEDS ORDERED: SUCCINYLCHOLINE 200 MG/10 ML VIAL ONE (18:34)
[2021-09-25] MEDS ORDERED: ETOMIDATE 20 MG/10 ML VIAL IV ONE ×2 (18:34→18:40)
[2021-09-25] MEDS ORDERED: NOREPINEPHRINE 4 MG/4 ML VIAL IV ONE (18:38)
[2021-09-25] MEDS ORDERED: SUCCINYLCHOLINE 200 MG/10 ML VIAL IV ONE (18:41)
[2021-09-25] MEDS: NOREPINEPHRINE 8 MG in SODIUM CHLORIDE 0.9% 242 ML IV PRN (18:55)
[2021-09-25] MEDS ORDERED: MIDAZOLAM 2 MG/2 ML VIAL ONE (19:00)
[2021-09-25] MEDS ORDERED: MIDAZOLAM 2 MG/2 ML VIAL IV ONE ×2 (19:02→19:15)
[2021-09-25] MEDS ORDERED: MIDAZOLAM 100 MG in SODIUM CHLORIDE 0.9% 80 ML IV PRN (19:21)
[2021-09-25 20:02] LABS: Basophils % 0.3 % (0.0-0.8); Hematocrit 36.1 VOL% (42.0-52.0); Hemoglobin 11.3 GM/DL (14.0-18.0); Immature Granulocytes % 4.4 %; Immature Granulocytes Absolute 0.67 #; Lymphocytes # 0.6 10*3/uL (1.4-4.0); Lymphocytes % 3.8 % (21.2-54.2); Mean Corpuscular HGB Conc 31.3 GM/DL (32-36); Mean Corpuscular Volume 97.8 FL (87-102); Mean Platelet Volume 9.9 FL (9.6-12.0); Monocytes % 5.4 % (1.7-12.7); NRBC # 0.03 10*3/uL; Neutrophils % 86.1 % (38.7-73.9); Platelet Count 236 T/CUMM (130-400); Red Blood Count 3.69 MC/CUMM (3.8-5.5); Red Cell Distribution Width 14.6 % (9.3-17.3); White Blood Count 15.3 T/CUMM (4-12)
[2021-09-25 20:18] LABS: ABG HCO3 32.9 MMOL/L (20-26); ABG Oxygen Saturation 73.5 % (95-100); ABG PO2 46.4 MM HG (80-95); ABG TCO2 36.1 MMOL/L (23-27)
[2021-09-25 20:24] LABS: ABG PCO2 104.5 MM HG (35-48); ABG PH 7.116 (7.35-7.45)
[2021-09-25 20:28] LABS: Albumin 2.6 G/DL (3.4-5.0); Bilirubin,Total 1.2 MG/DL (0.20-1.00); Calcium 7.8 MG/DL (8.5-10.1); Osmolality,Calculated 298.3 MOS/KG (273-304); Total Protein 7.8 G/DL (6.4-8.2)
[2021-09-25 20:42] LABS: Anisocytosis Slight; Band Neutrophils 1 % (0-10); Lymphocytes 6 % (20-55); Metamyelocytes 1 %; Myelocytes 1 %; Platelet Estimate Normal; Segmented Neutrophils 90 % (50-85); Total Cells Counted 100
[2021-09-25 20:43] LABS: Atypical Lymphocytes Few
[2021-09-25 20:43] LABS: ABG Base Excess 1.6 MMOL/L (-2.5-2.5); ABG HCO3 25.8 MMOL/L (20-26); ABG Oxygen Saturation 98.3 % (95-100); ABG TCO2 31.5 MMOL/L (23-27)
[2021-09-25 20:47] LABS: ABG PCO2 95.7 MM HG (35-48)
[2021-09-25] MEDS: ASCORBIC ACID 500 MG TABLET PO SCH (21:37)
[2021-09-25] MEDS: carvediloL 3.125 MG TABLET PO SCH (21:44)
[2021-09-25] MEDS: cefTRIAXone 2,000 MG in SODIUM CHLORIDE 0.9% 100 ML IV SCH (23:38)
[2021-09-26] MEDS: LEVALBUTEROL 0.63 MG/3 ML NEB RESP TX PRN
[2021-09-26] MEDS: ALBUTEROL 2.5 MG/3 ML NEB RESP TX SCH (00:08)
[2021-09-26] MEDS: AZITHROMYCIN INJ 500 MG in SODIUM CHLORIDE 0.9% 250 ML IV SCH (00:50)
[2021-09-26 00:59] LABS: Bacteria,Urine Occasional /HPF (Few); Bilirubin,Urine Negative (Negative); Blood, Urine Moderate mg/dL (Negative); Glucose,Urine (UA) Negative (Negative); Hyaline Casts,Urine 7 /LPF (0-3); Ketones,Urine Negative (Negative); Mucus,Urine Occasional /LPF (Occasional); Nitrite,Urine Negative (Negative); Protein,Urine >=500 MG/DL; RBC,Urine 5 /HPF (0-4); Squamous Epithelial Cell,Urine Occasional /HPF (0-10); Urine Appearance CLOUDY (Clear); Urine Color Amber (Yellow); Urine Specific Gravity 1.014 (1.001-1.035); Urine Urobilinogen < 2.0 EU/DL (<2.0)
[2021-09-26] MEDS: NOREPINEPHRINE 8 MG in SODIUM CHLORIDE 0.9% 242 ML IV PRN ×2 (02:42→10:08)
[2021-09-26 04:24] LABS: ABG Base Excess 2.5 MMOL/L (-2.5-2.5); ABG HCO3 29.8 MMOL/L (20-26); ABG Oxygen Saturation 99.3 % (95-100); ABG PH 7.328 (7.35-7.45); ABG PO2 297.7 MM HG (80-95); ABG TCO2 31.5 MMOL/L (23-27)
[2021-09-26 04:32] LABS: Basophils % 0.3 % (0.0-0.8); Hematocrit 33.5 VOL% (42.0-52.0); Hemoglobin 10.9 GM/DL (14.0-18.0); Immature Granulocytes % 3.8 %; Immature Granulocytes Absolute 0.49 #; Lymphocytes # 0.6 10*3/uL (1.4-4.0); Lymphocytes % 4.9 % (21.2-54.2); Mean Corpuscular HGB Conc 32.5 GM/DL (32-36); Mean Corpuscular Volume 94.1 FL (87-102); Mean Platelet Volume 9.9 FL (9.6-12.0); Monocytes % 9.9 % (1.7-12.7); NRBC # 0.03 10*3/uL; Neutrophils % 81.1 % (38.7-73.9); Platelet Count 223 T/CUMM (130-400); Red Blood Count 3.56 MC/CUMM (3.8-5.5); Red Cell Distribution Width 14.4 % (9.3-17.3); White Blood Count 12.8 T/CUMM (4-12)
[2021-09-26 04:42] LABS: Calcium 7.8 MG/DL (8.5-10.1); Osmolality,Calculated 298.3 MOS/KG (273-304); Potassium 3.7 MMOL/L (3.5-5.1)
[2021-09-26 05:11] LABS: Hypochromia 1+; Lymphocytes 5 % (20-55); Metamyelocytes 1 %; Segmented Neutrophils 84 % (50-85); Total Cells Counted 100
[2021-09-26 05:12] LABS: Microcytosis 1+; Ovalocytes Slight
[2021-09-26] MEDS: methylPREDNISolone SOD SUC 40 MG/1 ML VIAL IV SCH ×3 (05:16→21:03)
[2021-09-26] MEDS ORDERED: METOPROLOL TARTRATE 5 MG/5 ML VIAL IV PRN ×2 (07:49→14:31)
[2021-09-26] MEDS: NICOTINE 21 MG/24 HR PATCH TRANSDERM SCH (09:49)
[2021-09-26] MEDS: ENOXAPARIN 60 MG/0.6 ML SYRINGE SUBCUT SCH ×2 (09:49→20:19)
[2021-09-26] MEDS: PANTOPRAZOLE 40 MG VIAL IV SCH (09:50)
[2021-09-26] MEDS: DILTIAZEM INJ 100 MG in SODIUM CHLORIDE 0.9% 100 ML IV SCH (11:30)
[2021-09-26] MEDS ORDERED: DEXTROSE 50% 25 GM/50 ML VIAL IV PRN (13:00)
[2021-09-26] MEDS: DIGOXIN 0.125 MG TABLET PO SCH (13:47)
[2021-09-26] MEDS: SULFAMETHOX/TRIMETHOPRIM 800-160 MG TABLET PO SCH (13:47)
[2021-09-26] MEDS: ASCORBIC ACID 500 MG TABLET PO SCH ×2 (13:47→20:20)
[2021-09-26] MEDS: carvediloL 3.125 MG TABLET PO SCH ×2 (13:47→20:21)
[2021-09-26] MEDS ORDERED: DIGOXIN 0.5 MG/2 ML AMP IV ONE ×2 (14:29→15:04)
[2021-09-26] MEDS: DEXMEDETOMIDINE 200 MCG in SODIUM CHLORIDE 0.9% 48 ML IV PRN ×2 (16:06→21:04)
[2021-09-26] MEDS: INSULIN LISPRO 100 UNIT/ML SUBCUT SCH (18:05)
[2021-09-26] MEDS: cefTRIAXone 2,000 MG in SODIUM CHLORIDE 0.9% 100 ML IV SCH (22:00)
[2021-09-26 23:01] LABS: CDT Result Negative (Negative); CDT Specimen Source STOOL
[2021-09-27] MEDS: INSULIN LISPRO 100 UNIT/ML SUBCUT SCH ×4 (00:08→18:14)
[2021-09-27 03:51] LABS: ABG HCO3 31.8 MMOL/L (20-26); ABG Oxygen Saturation 97.9 % (95-100); ABG PCO2 46.2 MM HG (35-48); ABG PH 7.455 (7.35-7.45); ABG PO2 131.9 MM HG (80-95); ABG TCO2 33.2 MMOL/L (23-27)
[2021-09-27 04:19] LABS: Basophils % 0.1 % (0.0-0.8); Hematocrit 30.6 VOL% (42.0-52.0); Hemoglobin 9.9 GM/DL (14.0-18.0); Immature Granulocytes % 3.8 %; Lymphocytes % 5.3 % (21.2-54.2); Mean Corpuscular HGB Conc 32.4 GM/DL (32-36); Mean Corpuscular Volume 94.2 FL (87-102); Monocytes % 10.9 % (1.7-12.7); Neutrophils % 79.9 % (38.7-73.9); Platelet Count 168 T/CUMM (130-400); Red Blood Count 3.25 MC/CUMM (3.8-5.5)
[2021-09-27 04:20] LABS: Lymphocytes # 0.4 10*3/uL (1.4-4.0); NRBC # 0.02 10*3/uL
[2021-09-27 04:27] LABS: Calcium 8.3 MG/DL (8.5-10.1)
[2021-09-27] MEDS: NOREPINEPHRINE 8 MG in SODIUM CHLORIDE 0.9% 242 ML IV PRN (05:15)
[2021-09-27] MEDS: DEXMEDETOMIDINE 200 MCG in SODIUM CHLORIDE 0.9% 48 ML IV PRN ×2 (05:15→09:30)
[2021-09-27] MEDS: methylPREDNISolone SOD SUC 40 MG/1 ML VIAL IV SCH ×3 (05:26→21:05)
[2021-09-27] MEDS: ASCORBIC ACID 500 MG TABLET PO SCH ×2 (08:04→20:26)
[2021-09-27] MEDS: ENOXAPARIN 60 MG/0.6 ML SYRINGE SUBCUT SCH ×2 (08:05→20:27)
[2021-09-27] MEDS: carvediloL 3.125 MG TABLET PO SCH (08:05)
[2021-09-27] MEDS: SULFAMETHOX/TRIMETHOPRIM 800-160 MG TABLET PO SCH ×2 (08:05→20:26)
[2021-09-27] MEDS: PANTOPRAZOLE 40 MG VIAL IV SCH (08:05)
[2021-09-27] MEDS: NICOTINE 21 MG/24 HR PATCH TRANSDERM SCH (08:06)
[2021-09-27 09:02] LABS: ABG Base Excess 5.6 MMOL/L (-2.5-2.5); ABG HCO3 29.3 MMOL/L (20-26); ABG PH 7.352 (7.35-7.45); ABG PO2 68.1 MM HG (80-95); ABG TCO2 29.8 MMOL/L (23-27)
[2021-09-27] MEDS: BUDESONIDE 0.25 MG/2 ML NEB RESP TX SCH ×2 (12:53→20:41)
[2021-09-27] MEDS ORDERED: IPRATROPIUM 500 MCG/2.5 ML NEB RESP TX SCH (13:00)
[2021-09-27] MEDS: DIGOXIN 0.125 MG TABLET PO SCH (13:14)
[2021-09-27] MEDS: IPRATROPIUM 500 MCG/2.5 ML NEB RESP TX SCH ×2 (14:43→23:37)
[2021-09-27] MEDS: LEVALBUTEROL 0.63 MG/3 ML NEB RESP TX SCH ×2 (14:43→23:37)
[2021-09-27] MEDS: DEXMEDETOMIDINE 400 MCG in SODIUM CHLORIDE 0.9% 96 ML IV PRN (14:56)
[2021-09-27] MEDS: cefTRIAXone 2,000 MG in SODIUM CHLORIDE 0.9% 100 ML IV SCH (22:05)
[2021-09-27] MEDS: AZITHROMYCIN INJ 500 MG in SODIUM CHLORIDE 0.9% 250 ML IV SCH ×2 (23:02)
[2021-09-28] MEDS: INSULIN LISPRO 100 UNIT/ML SUBCUT SCH ×5 (00:50→23:38)
[2021-09-28] MEDS: DEXMEDETOMIDINE 400 MCG in SODIUM CHLORIDE 0.9% 96 ML IV PRN ×2 (00:54→12:33)
[2021-09-28 04:15] LABS: Basophils % 0.1 % (0.0-0.8); Hematocrit 29.5 VOL% (42.0-52.0); Hemoglobin 9.6 GM/DL (14.0-18.0); Immature Granulocytes % 3.1 %; Immature Granulocytes Absolute 0.26 #; Lymphocytes # 0.4 10*3/uL (1.4-4.0); Lymphocytes % 4.2 % (21.2-54.2); Mean Corpuscular HGB Conc 32.5 GM/DL (32-36); Mean Corpuscular Volume 95.5 FL (87-102); Mean Platelet Volume 10.2 FL (9.6-12.0); Monocytes % 10.6 % (1.7-12.7); Platelet Count 160 T/CUMM (130-400); Red Blood Count 3.09 MC/CUMM (3.8-5.5); Red Cell Distribution Width 13.9 % (9.3-17.3); White Blood Count 8.4 T/CUMM (4-12)
[2021-09-28 04:25] LABS: Calcium 8.2 MG/DL (8.5-10.1); Osmolality,Calculated 302.7 MOS/KG (273-304); Potassium 4.1 MMOL/L (3.5-5.1)
[2021-09-28 04:26] LABS: ABG Base Excess 8.2 MMOL/L (-2.5-2.5); ABG Oxygen Saturation 97.4 % (95-100); ABG PCO2 52.5 MM HG (35-48); ABG PH 7.421 (7.35-7.45); ABG TCO2 31.1 MMOL/L (23-27); Allen Test Positive; Pt O2 Delivery Device Ventilator
[2021-09-28] MEDS: methylPREDNISolone SOD SUC 40 MG/1 ML VIAL IV SCH ×3 (05:13→21:11)
[2021-09-28 05:21] LABS: Hypochromia Slight; Lymphocytes 4 % (20-55); Nucleated Red Blood Cells 1 (0-5); Segmented Neutrophils 87 % (50-85); Total Cells Counted 100
[2021-09-28 05:22] LABS: Microcytosis 1+
[2021-09-28 05:23] LABS: Platelet Estimate Adequate
[2021-09-28] MEDS: IPRATROPIUM 500 MCG/2.5 ML NEB RESP TX SCH (07:01)
[2021-09-28] MEDS: BUDESONIDE 0.25 MG/2 ML NEB RESP TX SCH ×2 (07:02→19:10)
[2021-09-28] MEDS: LEVALBUTEROL 0.63 MG/3 ML NEB RESP TX SCH (07:02)
[2021-09-28] MEDS: MORPHINE 2 MG/1 ML SYRINGE IV PRN ×3 (08:24→22:05)
[2021-09-28] MEDS: ASCORBIC ACID 500 MG TABLET PO SCH ×2 (08:25→20:20)
[2021-09-28] MEDS: ENOXAPARIN 60 MG/0.6 ML SYRINGE SUBCUT SCH ×2 (08:26→20:20)
[2021-09-28] MEDS: SULFAMETHOX/TRIMETHOPRIM 800-160 MG TABLET PO SCH ×2 (08:26→20:20)
[2021-09-28] MEDS: NICOTINE 21 MG/24 HR PATCH TRANSDERM SCH (08:26)
[2021-09-28] MEDS: PANTOPRAZOLE 40 MG VIAL IV SCH (08:27)
[2021-09-28] MEDS: DILTIAZEM INJ 100 MG in SODIUM CHLORIDE 0.9% 100 ML IV PRN ×2 (08:53→18:14)
[2021-09-28] MEDS: LORazepam 1 MG TABLET PO PRN (09:59)
[2021-09-28] MEDS ORDERED: QUEtiapine 25 MG TABLET PO ONE (11:29)
[2021-09-28] MEDS: ALBUTEROL/IPRATROPIUM 3 ML NEB RESP TX SCH ×2 (13:00→19:10)
[2021-09-28] MEDS: DIGOXIN 0.125 MG TABLET PO SCH (13:40)
[2021-09-28 13:46] LABS: ABG Base Excess 7.1 MMOL/L (-2.5-2.5); ABG HCO3 30.8 MMOL/L (20-26); ABG Oxygen Saturation 93.1 % (95-100); ABG PCO2 56.2 MM HG (35-48); ABG PH 7.385 (7.35-7.45); ABG PO2 72.2 MM HG (80-95); ABG TCO2 30.6 MMOL/L (23-27)
[2021-09-28] MEDS: SERTRALINE 25 MG TABLET PO SCH (18:14)
[2021-09-28] MEDS: cefTRIAXone 2,000 MG in SODIUM CHLORIDE 0.9% 100 ML IV SCH (22:05)
[2021-09-28] MEDS: AZITHROMYCIN INJ 500 MG in SODIUM CHLORIDE 0.9% 250 ML IV SCH (23:38)
[2021-09-28 23:39] LABS: ABG HCO3 29.8 MMOL/L (20-26); ABG PCO2 61.1 MM HG (35-48); ABG PH 7.347 (7.35-7.45); ABG PO2 71.3 MM HG (80-95); ABG TCO2 30.4 MMOL/L (23-27)
[2021-09-29] MEDS: ALBUTEROL/IPRATROPIUM 3 ML NEB RESP TX SCH ×4 (00:16→19:45)
[2021-09-29 03:43] LABS: ABG Base Excess 7.7 MMOL/L (-2.5-2.5); ABG HCO3 31.5 MMOL/L (20-26); ABG Oxygen Saturation 97.2 % (95-100); ABG PCO2 61.5 MM HG (35-48); ABG PH 7.363 (7.35-7.45); Allen Test Positive; Pt O2 Delivery Device BIPAP
[2021-09-29] MEDS: DILTIAZEM INJ 100 MG in SODIUM CHLORIDE 0.9% 100 ML IV PRN (04:14)
[2021-09-29] MEDS: methylPREDNISolone SOD SUC 40 MG/1 ML VIAL IV SCH ×3 (05:30→21:05)
[2021-09-29] MEDS: INSULIN LISPRO 100 UNIT/ML SUBCUT SCH ×4 (05:30→23:38)
[2021-09-29] MEDS: BUDESONIDE 0.25 MG/2 ML NEB RESP TX SCH ×2 (07:00→19:45)
[2021-09-29] MEDS: ASCORBIC ACID 500 MG TABLET PO SCH ×2 (09:22→20:45)
[2021-09-29] MEDS: PANTOPRAZOLE 40 MG VIAL IV SCH (09:22)
[2021-09-29] MEDS: FUROSEMIDE 40 MG/4 ML VIAL IV SCH ×2 (09:22→16:45)
[2021-09-29] MEDS: ENOXAPARIN 60 MG/0.6 ML SYRINGE SUBCUT SCH ×2 (09:23→20:46)
[2021-09-29] MEDS: SULFAMETHOX/TRIMETHOPRIM 800-160 MG TABLET PO SCH ×2 (09:23→20:45)
[2021-09-29] MEDS: SERTRALINE 25 MG TABLET PO SCH (09:23)
[2021-09-29] MEDS: LORazepam 1 MG TABLET PO PRN ×3 (09:23→23:33)
[2021-09-29] MEDS: NICOTINE 21 MG/24 HR PATCH TRANSDERM SCH (09:25)
[2021-09-29] MEDS ORDERED: DILTIAZEM 30 MG TABLET PO SCH (10:22)
[2021-09-29] MEDS: METOPROLOL TARTRATE 25 MG TABLET PO SCH ×2 (13:10→20:48)
[2021-09-29] MEDS: DIGOXIN 0.125 MG TABLET PO SCH (13:28)
[2021-09-29] MEDS: cefTRIAXone 2,000 MG in SODIUM CHLORIDE 0.9% 100 ML IV SCH (23:11)
[2021-09-29] MEDS: AZITHROMYCIN INJ 500 MG in SODIUM CHLORIDE 0.9% 250 ML IV SCH (23:21)
[2021-09-30] MEDS: ALBUTEROL/IPRATROPIUM 3 ML NEB RESP TX SCH ×4 (01:48→19:25)
[2021-09-30 04:42] LABS: Hematocrit 28.6 VOL% (42.0-52.0); Immature Granulocytes % 4.2 %; Immature Granulocytes Absolute 0.32 #; Lymphocytes # 0.2 10*3/uL (1.4-4.0); Lymphocytes % 2.7 % (21.2-54.2); Mean Corpuscular HGB Conc 31.5 GM/DL (32-36); Mean Corpuscular Volume 98.6 FL (87-102); Mean Platelet Volume 10.7 FL (9.6-12.0); Monocytes % 5.6 % (1.7-12.7); NRBC # 0.02 10*3/uL; Neutrophils % 87.5 % (38.7-73.9); Platelet Count 133 T/CUMM (130-400); Red Cell Distribution Width 13.9 % (9.3-17.3); White Blood Count 7.7 T/CUMM (4-12)
[2021-09-30 04:55] LABS: Calcium 8.5 MG/DL (8.5-10.1)
[2021-09-30 04:58] LABS: Osmolality,Calculated 296.3 MOS/KG (273-304)
[2021-09-30] MEDS: LORazepam 1 MG TABLET PO PRN ×2 (05:02→14:20)
[2021-09-30 05:03] LABS: Potassium 4.8 MMOL/L (3.5-5.1)
[2021-09-30 05:05] LABS: Band Neutrophils 1 % (0-10); Hypochromia Slight; Lymphocytes 6 % (20-55); Nucleated Red Blood Cells 1 (0-5); Segmented Neutrophils 90 % (50-85); Total Cells Counted 100
[2021-09-30] MEDS: methylPREDNISolone SOD SUC 40 MG/1 ML VIAL IV SCH ×3 (05:05→21:04)
[2021-09-30 05:06] LABS: Microcytosis 1+
[2021-09-30 05:07] LABS: Platelet Estimate Adequate
[2021-09-30] MEDS: INSULIN LISPRO 100 UNIT/ML SUBCUT SCH ×3 (05:35→18:44)
[2021-09-30] MEDS: BUDESONIDE 0.25 MG/2 ML NEB RESP TX SCH ×2 (07:30→19:25)
[2021-09-30] MEDS: ENOXAPARIN 60 MG/0.6 ML SYRINGE SUBCUT SCH ×2 (09:30→20:42)
[2021-09-30] MEDS: SERTRALINE 25 MG TABLET PO SCH (09:30)
[2021-09-30] MEDS: METOPROLOL TARTRATE 25 MG TABLET PO SCH ×2 (09:30→20:40)
[2021-09-30] MEDS: ASCORBIC ACID 500 MG TABLET PO SCH ×2 (09:30→20:42)
[2021-09-30] MEDS: QUEtiapine 25 MG TABLET PO SCH ×2 (09:30→20:42)
[2021-09-30] MEDS: SULFAMETHOX/TRIMETHOPRIM 800-160 MG TABLET PO SCH ×2 (09:30→20:42)
[2021-09-30] MEDS: PANTOPRAZOLE 40 MG VIAL IV SCH (11:55)
[2021-09-30] MEDS: NICOTINE 21 MG/24 HR PATCH TRANSDERM SCH (11:55)
[2021-09-30] MEDS: FUROSEMIDE 40 MG/4 ML VIAL IV SCH (12:11)
[2021-09-30] MEDS ORDERED: MORPHINE 4 MG/1 ML VIAL IV PRN (12:49)
[2021-09-30] MEDS: DIGOXIN 0.125 MG TABLET PO SCH (14:20)
[2021-09-30] MEDS: FUROSEMIDE 40 MG TABLET PO SCH (16:00)
[2021-09-30] MEDS: AZITHROMYCIN 250 MG TABLET PO SCH (16:10)
[2021-10-01] MEDS: INSULIN LISPRO 100 UNIT/ML SUBCUT SCH ×4 (00:40→18:19)
[2021-10-01 05:18] LABS: ABG Base Excess 10.6 MMOL/L (-2.5-2.5); ABG HCO3 35.3 MMOL/L (20-26); ABG PCO2 46.3 MM HG (35-48); ABG TCO2 36.7 MMOL/L (23-27)
[2021-10-01 05:20] LABS: ABG Oxygen Saturation 94.4 % (95-100)
[2021-10-01 05:28] LABS: Basophils % 0.1 % (0.0-0.8); Hematocrit 27.4 VOL% (42.0-52.0); Hemoglobin 8.7 GM/DL (14.0-18.0); Immature Granulocytes % 4.9 %; Immature Granulocytes Absolute 0.36 #; Lymphocytes # 0.3 10*3/uL (1.4-4.0); Lymphocytes % 4.5 % (21.2-54.2); Mean Corpuscular HGB Conc 31.8 GM/DL (32-36); Mean Corpuscular Volume 97.2 FL (87-102); Mean Platelet Volume 11.1 FL (9.6-12.0); Monocytes % 7.3 % (1.7-12.7); NRBC # 0.02 10*3/uL; Neutrophils % 83.2 % (38.7-73.9); Platelet Count 121 T/CUMM (130-400); Red Blood Count 2.82 MC/CUMM (3.8-5.5); Red Cell Distribution Width 13.7 % (9.3-17.3); White Blood Count 7.4 T/CUMM (4-12)
[2021-10-01 05:51] LABS: Hypochromia Slight; Lymphocytes 2 % (20-55); Metamyelocytes 1 %; Microcytosis 1+; Platelet Estimate Adequate; Polychromasia Slight; Segmented Neutrophils 93 % (50-85); Total Cells Counted 100
[2021-10-01 05:52] LABS: Calcium 8.6 MG/DL (8.5-10.1); Osmolality,Calculated 289.5 MOS/KG (273-304); Potassium 5.1 MMOL/L (3.5-5.1)
[2021-10-01] MEDS: methylPREDNISolone SOD SUC 40 MG/1 ML VIAL IV SCH ×3 (06:51→22:24)
[2021-10-01] MEDS: ALBUTEROL/IPRATROPIUM 3 ML NEB RESP TX SCH ×4 (07:45→19:30)
[2021-10-01] MEDS: BUDESONIDE 0.25 MG/2 ML NEB RESP TX SCH ×2 (07:45→19:30)
[2021-10-01] MEDS: ENOXAPARIN 60 MG/0.6 ML SYRINGE SUBCUT SCH ×2 (08:55→22:25)
[2021-10-01] MEDS: SULFAMETHOX/TRIMETHOPRIM 800-160 MG TABLET PO SCH ×2 (08:56→22:25)
[2021-10-01] MEDS: ASCORBIC ACID 500 MG TABLET PO SCH ×2 (08:56→22:24)
[2021-10-01] MEDS: SERTRALINE 25 MG TABLET PO SCH (08:56)
[2021-10-01] MEDS: PANTOPRAZOLE 40 MG TABLET PO SCH (08:56)
[2021-10-01] MEDS: FUROSEMIDE 40 MG TABLET PO SCH (08:56)
[2021-10-01] MEDS: METOPROLOL TARTRATE 25 MG TABLET PO SCH ×2 (08:56→22:26)
[2021-10-01] MEDS: NICOTINE 21 MG/24 HR PATCH TRANSDERM SCH (08:57)
[2021-10-01] MEDS: QUEtiapine 25 MG TABLET PO SCH ×2 (08:57→22:24)
[2021-10-01] MEDS: DIGOXIN 0.125 MG TABLET PO SCH (14:13)
[2021-10-02] MEDS: INSULIN LISPRO 100 UNIT/ML SUBCUT SCH ×4 (00:01→18:05)
[2021-10-02] MEDS: LORazepam 1 MG TABLET PO PRN ×2 (00:01→22:19)
[2021-10-02] MEDS: ALBUTEROL/IPRATROPIUM 3 ML NEB RESP TX SCH ×4 (00:35→18:58)
[2021-10-02 05:50] LABS: Hematocrit 27.2 VOL% (42.0-52.0); Hemoglobin 8.8 GM/DL (14.0-18.0); Immature Granulocytes % 4.9 %; Immature Granulocytes Absolute 0.47 #; Lymphocytes # 0.5 10*3/uL (1.4-4.0); Lymphocytes % 5.5 % (21.2-54.2); Mean Corpuscular HGB Conc 32.4 GM/DL (32-36); Mean Corpuscular Volume 97.1 FL (87-102); Mean Platelet Volume 11.7 FL (9.6-12.0); Monocytes % 7.6 % (1.7-12.7); Platelet Count 128 T/CUMM (130-400); Red Cell Distribution Width 13.9 % (9.3-17.3); White Blood Count 9.6 T/CUMM (4-12)
[2021-10-02 06:07] LABS: Calcium 8.5 MG/DL (8.5-10.1); Osmolality,Calculated 282.1 MOS/KG (273-304); Potassium 5.3 MMOL/L (3.5-5.1)
[2021-10-02] MEDS: methylPREDNISolone SOD SUC 40 MG/1 ML VIAL IV SCH ×2 (06:20→22:19)
[2021-10-02] MEDS: BUDESONIDE 0.25 MG/2 ML NEB RESP TX SCH ×2 (07:14→18:58)
[2021-10-02] MEDS: SULFAMETHOX/TRIMETHOPRIM 800-160 MG TABLET PO SCH (09:34)
[2021-10-02] MEDS: SERTRALINE 25 MG TABLET PO SCH (09:35)
[2021-10-02] MEDS: FUROSEMIDE 40 MG TABLET PO SCH (09:35)
[2021-10-02] MEDS: METOPROLOL TARTRATE 25 MG TABLET PO SCH ×2 (09:35→22:17)
[2021-10-02] MEDS: PANTOPRAZOLE 40 MG TABLET PO SCH (09:35)
[2021-10-02] MEDS: ASCORBIC ACID 500 MG TABLET PO SCH ×2 (09:35→22:19)
[2021-10-02] MEDS: QUEtiapine 25 MG TABLET PO SCH ×2 (09:35→22:19)
[2021-10-02] MEDS: NICOTINE 21 MG/24 HR PATCH TRANSDERM SCH (09:54)
[2021-10-02] MEDS: ENOXAPARIN 60 MG/0.6 ML SYRINGE SUBCUT SCH (10:01)
[2021-10-02] MEDS ORDERED: SODIUM ZIRCONIUM CYCLOSILICATE 10 GM PACK PO ONE (14:00)
[2021-10-02] MEDS: DIGOXIN 0.125 MG TABLET PO SCH (14:44)
[2021-10-03] MEDS: ALBUTEROL/IPRATROPIUM 3 ML NEB RESP TX SCH ×4 (00:25→19:28)
[2021-10-03] MEDS: INSULIN LISPRO 100 UNIT/ML SUBCUT SCH ×4 (01:04→17:29)
[2021-10-03 06:51] LABS: Basophils % 0.1 % (0.0-0.8); Hematocrit 28.8 VOL% (42.0-52.0); Hemoglobin 9.2 GM/DL (14.0-18.0); Immature Granulocytes % 2.8 %; Immature Granulocytes Absolute 0.27 #; Lymphocytes # 0.8 10*3/uL (1.4-4.0); Mean Corpuscular HGB Conc 31.9 GM/DL (32-36); Mean Platelet Volume 12.3 FL (9.6-12.0); Neutrophils % 82.1 % (38.7-73.9); Platelet Count 114 T/CUMM (130-400); Red Blood Count 3.03 MC/CUMM (3.8-5.5); Red Cell Distribution Width 14.4 % (9.3-17.3); White Blood Count 9.5 T/CUMM (4-12)
[2021-10-03] MEDS: BUDESONIDE 0.25 MG/2 ML NEB RESP TX SCH ×2 (07:10→19:28)
[2021-10-03 07:19] LABS: Calcium 8.2 MG/DL (8.5-10.1); Potassium 5.3 MMOL/L (3.5-5.1)
[2021-10-03] MEDS ORDERED: SODIUM ZIRCONIUM CYCLOSILICATE 10 GM PACK PO SCH (09:00)
[2021-10-03] MEDS: METOPROLOL TARTRATE 25 MG TABLET PO SCH ×2 (10:01→22:27)
[2021-10-03] MEDS: SERTRALINE 25 MG TABLET PO SCH (10:01)
[2021-10-03] MEDS: ASCORBIC ACID 500 MG TABLET PO SCH ×2 (10:01→22:26)
[2021-10-03] MEDS: PANTOPRAZOLE 40 MG TABLET PO SCH (10:01)
[2021-10-03] MEDS: FUROSEMIDE 40 MG TABLET PO SCH (10:01)
[2021-10-03] MEDS: QUEtiapine 25 MG TABLET PO SCH ×2 (10:02→22:26)
[2021-10-03] MEDS: SULFAMETHOX/TRIMETHOPRIM 800-160 MG TABLET PO SCH (10:02)
[2021-10-03] MEDS: methylPREDNISolone SOD SUC 40 MG/1 ML VIAL IV SCH ×2 (10:03→22:27)
[2021-10-03] MEDS: NICOTINE 21 MG/24 HR PATCH TRANSDERM SCH (10:03)
[2021-10-03] MEDS ORDERED: MORPHINE 2 MG/1 ML SYRINGE IV PRN (10:30)
[2021-10-03 11:50] LABS: ABG Base Excess 6.9 MMOL/L (-2.5-2.5); ABG HCO3 30.7 MMOL/L (20-26); ABG Oxygen Saturation 96.2 % (95-100); ABG PCO2 52.8 MM HG (35-48); ABG PH 7.402 (7.35-7.45); ABG PO2 91.3 MM HG (80-95); ABG TCO2 30.2 MMOL/L (23-27)
[2021-10-03] MEDS: DIGOXIN 0.125 MG TABLET PO SCH (14:50)
[2021-10-03] MEDS: SODIUM ZIRCONIUM CYCLOSILICATE 10 GM PACK PO SCH ×2 (15:56→22:27)
[2021-10-03] MEDS: ENOXAPARIN 40 MG/0.4 ML SYRINGE SUBCUT SCH (22:27)
[2021-10-03] MEDS: LORazepam 1 MG TABLET PO PRN (22:27)
[2021-10-04] MEDS: ALBUTEROL/IPRATROPIUM 3 ML NEB RESP TX SCH ×4 (01:12→19:46)
[2021-10-04] MEDS: INSULIN LISPRO 100 UNIT/ML SUBCUT SCH ×4 (01:26→19:29)
[2021-10-04 05:33] LABS: Basophils % 0.1 % (0.0-0.8); Hematocrit 28.2 VOL% (42.0-52.0); Hemoglobin 9.2 GM/DL (14.0-18.0); Immature Granulocytes % 1.9 %; Immature Granulocytes Absolute 0.19 #; Lymphocytes # 0.7 10*3/uL (1.4-4.0); Lymphocytes % 6.6 % (21.2-54.2); Mean Corpuscular HGB Conc 32.6 GM/DL (32-36); Mean Corpuscular Volume 96.2 FL (87-102); Monocytes % 5.3 % (1.7-12.7); Neutrophils % 86.1 % (38.7-73.9); Platelet Count 112 T/CUMM (130-400); Red Blood Count 2.93 MC/CUMM (3.8-5.5); Red Cell Distribution Width 14.6 % (9.3-17.3); White Blood Count 10.2 T/CUMM (4-12)
[2021-10-04 06:01] LABS: Calcium 8.4 MG/DL (8.5-10.1); Potassium 4.9 MMOL/L (3.5-5.1)
[2021-10-04] MEDS: BUDESONIDE 0.25 MG/2 ML NEB RESP TX SCH ×2 (07:42→19:46)
[2021-10-04] MEDS: ASCORBIC ACID 500 MG TABLET PO SCH ×2 (09:27→21:45)
[2021-10-04] MEDS: SULFAMETHOX/TRIMETHOPRIM 800-160 MG TABLET PO SCH (09:27)
[2021-10-04] MEDS: SERTRALINE 25 MG TABLET PO SCH (09:27)
[2021-10-04] MEDS: QUEtiapine 25 MG TABLET PO SCH ×2 (09:28→21:45)
[2021-10-04] MEDS: NICOTINE 21 MG/24 HR PATCH TRANSDERM SCH (09:28)
[2021-10-04] MEDS: FUROSEMIDE 40 MG TABLET PO SCH (09:28)
[2021-10-04] MEDS: SODIUM ZIRCONIUM CYCLOSILICATE 10 GM PACK PO SCH ×3 (09:28→21:44)
[2021-10-04] MEDS: PANTOPRAZOLE 40 MG TABLET PO SCH (09:36)
[2021-10-04] MEDS: methylPREDNISolone SOD SUC 40 MG/1 ML VIAL IV SCH ×2 (09:38→21:44)
[2021-10-04] MEDS: DIGOXIN 0.125 MG TABLET PO SCH (13:51)
[2021-10-04] MEDS: METOPROLOL TARTRATE 25 MG TABLET PO SCH ×2 (17:22→21:47)
[2021-10-04] MEDS: ACETAMINOPHEN 325 MG TABLET PO PRN (21:45)
[2021-10-04] MEDS: ENOXAPARIN 40 MG/0.4 ML SYRINGE SUBCUT SCH (21:47)
[2021-10-05] MEDS: INSULIN LISPRO 100 UNIT/ML SUBCUT SCH ×5 (00:27→23:56)
[2021-10-05] MEDS: ALBUTEROL/IPRATROPIUM 3 ML NEB RESP TX SCH ×4 (01:26→19:47)
[2021-10-05] MEDS: ACETAMINOPHEN 325 MG TABLET PO PRN ×2 (06:27→21:57)
[2021-10-05 06:29] LABS: Basophils % 0.1 % (0.0-0.8); Hematocrit 26.2 VOL% (42.0-52.0); Hemoglobin 8.4 GM/DL (14.0-18.0); Immature Granulocytes Absolute 0.19 #; Lymphocytes # 0.4 10*3/uL (1.4-4.0); Lymphocytes % 4.4 % (21.2-54.2); Mean Corpuscular HGB Conc 32.1 GM/DL (32-36); Mean Corpuscular Volume 97.4 FL (87-102); Monocytes % 5.3 % (1.7-12.7); Neutrophils % 88.2 % (38.7-73.9); Platelet Count 106 T/CUMM (130-400); Red Blood Count 2.69 MC/CUMM (3.8-5.5); Red Cell Distribution Width 14.9 % (9.3-17.3); White Blood Count 9.3 T/CUMM (4-12)
[2021-10-05 06:39] LABS: Calcium 7.8 MG/DL (8.5-10.1); Osmolality,Calculated 288.5 MOS/KG (273-304); Potassium 4.2 MMOL/L (3.5-5.1)
[2021-10-05] MEDS: BUDESONIDE 0.25 MG/2 ML NEB RESP TX SCH ×2 (07:25→19:47)
[2021-10-05 07:40] LABS: Band Neutrophils 1 % (0-10); Hypochromia 1+; Lymphocytes 4 % (20-55); Macrocytosis Slight; Segmented Neutrophils 87 % (50-85); Total Cells Counted 100
[2021-10-05 07:41] LABS: Platelet Estimate Decreased
[2021-10-05] MEDS: ASCORBIC ACID 500 MG TABLET PO SCH ×2 (10:33→21:57)
[2021-10-05] MEDS: SODIUM ZIRCONIUM CYCLOSILICATE 10 GM PACK PO SCH (10:33)
[2021-10-05] MEDS: NICOTINE 21 MG/24 HR PATCH TRANSDERM SCH (10:34)
[2021-10-05] MEDS: SULFAMETHOX/TRIMETHOPRIM 800-160 MG TABLET PO SCH (10:34)
[2021-10-05] MEDS: QUEtiapine 25 MG TABLET PO SCH ×2 (10:34→21:57)
[2021-10-05] MEDS: SERTRALINE 25 MG TABLET PO SCH (10:34)
[2021-10-05] MEDS: PANTOPRAZOLE 40 MG TABLET PO SCH (10:34)
[2021-10-05] MEDS: FUROSEMIDE 40 MG TABLET PO SCH (10:34)
[2021-10-05] MEDS: methylPREDNISolone SOD SUC 40 MG/1 ML VIAL IV SCH ×2 (10:35→21:57)
[2021-10-05] MEDS: METOPROLOL TARTRATE 25 MG TABLET PO SCH ×2 (10:35→21:57)
[2021-10-05] MEDS: DIGOXIN 0.125 MG TABLET PO SCH (13:32)
[2021-10-05] MEDS: ENOXAPARIN 40 MG/0.4 ML SYRINGE SUBCUT SCH (21:57)
[2021-10-06] MEDS: ALBUTEROL/IPRATROPIUM 3 ML NEB RESP TX SCH ×4 (01:24→20:25)
[2021-10-06] MEDS: INSULIN LISPRO 100 UNIT/ML SUBCUT SCH ×2 (06:19→12:15)
[2021-10-06] MEDS: BUDESONIDE 0.25 MG/2 ML NEB RESP TX SCH ×2 (07:30→20:25)
[2021-10-06 07:43] LABS: Calcium 8.4 MG/DL (8.5-10.1); Osmolality,Calculated 283.7 MOS/KG (273-304); Potassium 4.6 MMOL/L (3.5-5.1)
[2021-10-06] MEDS: SULFAMETHOX/TRIMETHOPRIM 800-160 MG TABLET PO SCH (08:31)
[2021-10-06] MEDS: METOPROLOL TARTRATE 25 MG TABLET PO SCH ×2 (08:32→22:18)
[2021-10-06] MEDS: ACETAMINOPHEN 325 MG TABLET PO PRN (08:32)
[2021-10-06] MEDS: ASCORBIC ACID 500 MG TABLET PO SCH ×2 (08:32→21:41)
[2021-10-06] MEDS: PANTOPRAZOLE 40 MG TABLET PO SCH (08:32)
[2021-10-06] MEDS: FUROSEMIDE 40 MG TABLET PO SCH (08:32)
[2021-10-06] MEDS: QUEtiapine 25 MG TABLET PO SCH ×2 (08:32→21:41)
[2021-10-06] MEDS: methylPREDNISolone SOD SUC 40 MG/1 ML VIAL IV SCH ×2 (08:33→21:41)
[2021-10-06] MEDS: SERTRALINE 25 MG TABLET PO SCH (08:33)
[2021-10-06] MEDS: NICOTINE 21 MG/24 HR PATCH TRANSDERM SCH (10:33)
[2021-10-06 10:54] LABS: Basophils % 0.3 % (0.2-1.0); Hematocrit 27.9 VOL% (42.0-52.0); Lymphocytes # 0.3 # (1.3-2.9); Lymphocytes % 4.2 % (20.5-45.5); Mean Corpuscular HGB Conc 32.3 GM/DL (32-36); Mean Corpuscular Volume 98.9 FL (80-94); Mean Platelet Volume 12.8 FL (7.4-10.4); Monocytes % 5.2 % (5.5-11.7); Neutrophils % 88.6 % (43.0-65.0); Platelet Count 107 T/CUMM (130-400); Red Blood Count 2.82 MC/CUMM (4.70-6.10); Red Cell Distribution Width 15.7 % (11.5-15.5); White Blood Count 7.1 T/CUMM (4.8-10.8)
[2021-10-06] MEDS: DIGOXIN 0.125 MG TABLET PO SCH (14:09)
[2021-10-06] MEDS: ENOXAPARIN 40 MG/0.4 ML SYRINGE SUBCUT SCH (21:41)
[2021-10-06] MEDS ORDERED: MORPHINE 4 MG/1 ML VIAL IV PRN (23:17)
[2021-10-07] MEDS: ACETAMINOPHEN 325 MG TABLET PO PRN (00:30)
[2021-10-07] MEDS: ALBUTEROL/IPRATROPIUM 3 ML NEB RESP TX SCH ×4 (02:02→19:40)
[2021-10-07 06:04] LABS: Hematocrit 24.6 VOL% (42.0-52.0); Immature Granulocytes % 2.2 %; Immature Granulocytes Absolute 0.13 #; Lymphocytes # 0.2 10*3/uL (1.4-4.0); Mean Corpuscular HGB Conc 32.5 GM/DL (32-36); Mean Corpuscular Volume 98.4 FL (87-102); Mean Platelet Volume 12.4 FL (9.6-12.0); Monocytes % 5.5 % (1.7-12.7); Neutrophils % 88.3 % (38.7-73.9); Platelet Count 106 T/CUMM (130-400); Red Cell Distribution Width 15.9 % (9.3-17.3); White Blood Count 5.8 T/CUMM (4-12)
[2021-10-07 06:18] LABS: Calcium 8.3 MG/DL (8.5-10.1); Potassium 4.4 MMOL/L (3.5-5.1)
[2021-10-07 06:30] LABS: Lymphocytes 3 % (20-55); Segmented Neutrophils 93 % (50-85); Total Cells Counted 100
[2021-10-07 06:31] LABS: Hypochromia 1+; Microcytosis 1+; Platelet Estimate Decreased
[2021-10-07] MEDS: INSULIN LISPRO 100 UNIT/ML SUBCUT SCH ×3 (07:20→18:45)
[2021-10-07] MEDS: ASCORBIC ACID 500 MG TABLET PO SCH ×2 (08:59→21:20)
[2021-10-07] MEDS: FUROSEMIDE 40 MG TABLET PO SCH (08:59)
[2021-10-07] MEDS: PANTOPRAZOLE 40 MG TABLET PO SCH (08:59)
[2021-10-07] MEDS: METOPROLOL TARTRATE 25 MG TABLET PO SCH ×2 (08:59→21:20)
[2021-10-07] MEDS: methylPREDNISolone SOD SUC 40 MG/1 ML VIAL IV SCH ×2 (08:59→21:21)
[2021-10-07] MEDS: SULFAMETHOX/TRIMETHOPRIM 800-160 MG TABLET PO SCH (08:59)
[2021-10-07] MEDS: SERTRALINE 25 MG TABLET PO SCH (09:00)
[2021-10-07] MEDS: QUEtiapine 25 MG TABLET PO SCH ×2 (09:00→21:24)
[2021-10-07] MEDS: NICOTINE 21 MG/24 HR PATCH TRANSDERM SCH (09:00)
[2021-10-07] MEDS: BUDESONIDE 0.25 MG/2 ML NEB RESP TX SCH ×2 (13:32→19:40)
[2021-10-07] MEDS: DIGOXIN 0.125 MG TABLET PO SCH (14:09)
[2021-10-07] MEDS: AZITHROMYCIN 250 MG TABLET PO SCH (16:48)
[2021-10-07] MEDS: ENOXAPARIN 40 MG/0.4 ML SYRINGE SUBCUT SCH (21:21)
[2021-10-08] MEDS: INSULIN LISPRO 100 UNIT/ML SUBCUT SCH ×4 (00:15→17:45)
[2021-10-08] MEDS: ALBUTEROL/IPRATROPIUM 3 ML NEB RESP TX SCH ×4 (01:33→19:28)
[2021-10-08 06:21] LABS: Hematocrit 30.5 VOL% (42.0-52.0); Hemoglobin 9.7 GM/DL (14.0-18.0); Immature Granulocytes % 1.5 %; Immature Granulocytes Absolute 0.12 #; Lymphocytes # 0.3 10*3/uL (1.4-4.0); Lymphocytes % 3.1 % (21.2-54.2); Mean Corpuscular HGB Conc 31.8 GM/DL (32-36); Mean Corpuscular Volume 100.3 FL (87-102); Mean Platelet Volume 11.9 FL (9.6-12.0); Monocytes % 8.5 % (1.7-12.7); Neutrophils % 86.9 % (38.7-73.9); Platelet Count 137 T/CUMM (130-400); Red Blood Count 3.04 MC/CUMM (3.8-5.5); White Blood Count 8.1 T/CUMM (4-12)
[2021-10-08 06:25] LABS: Calcium 8.6 MG/DL (8.5-10.1)
[2021-10-08 06:27] LABS: Potassium 6.2 MMOL/L (3.5-5.1)
[2021-10-08] MEDS: ACETAMINOPHEN 325 MG TABLET PO PRN (06:28)
[2021-10-08 06:58] LABS: Hypochromia 1+; Lymphocytes 5 % (20-55); Microcytosis 1+; Platelet Estimate Normal; Segmented Neutrophils 84 % (50-85); Total Cells Counted 100
[2021-10-08] MEDS: BUDESONIDE 0.25 MG/2 ML NEB RESP TX SCH ×2 (07:20→19:28)
[2021-10-08] MEDS: FUROSEMIDE 40 MG TABLET PO SCH (10:17)
[2021-10-08] MEDS: QUEtiapine 25 MG TABLET PO SCH ×2 (10:17→21:50)
[2021-10-08] MEDS: ASCORBIC ACID 500 MG TABLET PO SCH ×2 (10:17→21:50)
[2021-10-08] MEDS: SERTRALINE 25 MG TABLET PO SCH (10:18)
[2021-10-08] MEDS: methylPREDNISolone SOD SUC 40 MG/1 ML VIAL IV SCH (10:18)
[2021-10-08] MEDS: SULFAMETHOX/TRIMETHOPRIM 800-160 MG TABLET PO SCH (10:18)
[2021-10-08] MEDS: PANTOPRAZOLE 40 MG TABLET PO SCH (10:18)
[2021-10-08] MEDS: NICOTINE 21 MG/24 HR PATCH TRANSDERM SCH (10:19)
[2021-10-08] MEDS: METOPROLOL TARTRATE 25 MG TABLET PO SCH ×2 (10:35→21:40)
[2021-10-08] MEDS: DIGOXIN 0.125 MG TABLET PO SCH (13:11)
[2021-10-08] MEDS: ONDANSETRON 4 MG/2 ML VIAL IV PRN (17:42)
[2021-10-08] MEDS: ENOXAPARIN 40 MG/0.4 ML SYRINGE SUBCUT SCH (21:51)
[2021-10-09] MEDS: ALBUTEROL/IPRATROPIUM 3 ML NEB RESP TX SCH ×3 (00:20→16:58)
[2021-10-09] MEDS: INSULIN LISPRO 100 UNIT/ML SUBCUT SCH ×4 (00:33→17:59)
[2021-10-09] MEDS: ONDANSETRON 4 MG/2 ML VIAL IV PRN ×2 (00:35→05:33)
[2021-10-09] MEDS: DEXTROSE 10% 250 ML BAG IV PRN ×4 (00:51→15:23)
[2021-10-09] MEDS ORDERED: SODIUM CHLORIDE 0.9% 500 ML IV ONE ×3 (04:32→17:48)
[2021-10-09] MEDS ORDERED: LOPERAMIDE 2 MG CAPSULE PO PRN (04:33)
[2021-10-09] MEDS ORDERED: DEXTROSE 5% 1,000 ML IV SCH (05:00)
[2021-10-09 05:33] LABS: Basophils % 0.1 % (0.0-0.8); Hematocrit 32.7 VOL% (42.0-52.0); Hemoglobin 10.3 GM/DL (14.0-18.0); Immature Granulocytes % 0.7 %; Immature Granulocytes Absolute 0.07 #; Lymphocytes # 0.1 10*3/uL (1.4-4.0); Lymphocytes % 1.5 % (21.2-54.2); Mean Corpuscular HGB Conc 31.5 GM/DL (32-36); Mean Corpuscular Volume 100.9 FL (87-102); Mean Platelet Volume 11.4 FL (9.6-12.0); Monocytes % 3.9 % (1.7-12.7); Neutrophils % 93.8 % (38.7-73.9); Platelet Count 134 T/CUMM (130-400); Red Blood Count 3.24 MC/CUMM (3.8-5.5); Red Cell Distribution Width 16.7 % (9.3-17.3); White Blood Count 9.6 T/CUMM (4-12)
[2021-10-09 05:40] LABS: Calcium 8.2 MG/DL (8.5-10.1); Osmolality,Calculated 284.2 MOS/KG (273-304); Potassium 4.9 MMOL/L (3.5-5.1)
[2021-10-09 06:02] LABS: Band Neutrophils 5 % (0-10); Hypochromia Slight; Microcytosis Slight; Platelet Estimate Normal; Segmented Neutrophils 93 % (50-85); Total Cells Counted 100
[2021-10-09] MEDS: BUDESONIDE 0.25 MG/2 ML NEB RESP TX SCH (07:30)
[2021-10-09] MEDS ORDERED: DEXTROSE 10% 1,000 ML IV SCH (08:00)
[2021-10-09] MEDS ORDERED: ALBUTEROL 1.25 MG/3 ML NEB RESP TX PRN (09:22)
[2021-10-09 09:38] LABS: ABG Base Excess -2.5 MMOL/L (-2.5-2.5); ABG HCO3 22.2 MMOL/L (20-26); ABG Oxygen Saturation 89.3 % (95-100); ABG PCO2 37.9 MM HG (35-48); ABG PH 7.377 (7.35-7.45); ABG TCO2 20.3 MMOL/L (23-27)
[2021-10-09] MEDS: LORazepam 2 MG/1 ML VIAL IV PRN (09:39)
[2021-10-09] MEDS: PANTOPRAZOLE 40 MG VIAL IV SCH (10:18)
[2021-10-09] MEDS: SULFAMETHOX/TRIMETHOPRIM 800-160 MG TABLET PO SCH (10:19)
[2021-10-09] MEDS: ASCORBIC ACID 500 MG TABLET PO SCH ×2 (10:19→20:34)
[2021-10-09] MEDS: SERTRALINE 25 MG TABLET PO SCH (10:19)
[2021-10-09] MEDS: methylPREDNISolone SOD SUC 40 MG/1 ML VIAL IV SCH (10:19)
[2021-10-09] MEDS: NICOTINE 21 MG/24 HR PATCH TRANSDERM SCH (10:19)
[2021-10-09] MEDS: QUEtiapine 25 MG TABLET PO SCH ×2 (10:21→20:34)
[2021-10-09] MEDS ORDERED: SODIUM CHLORIDE 0.9% 250 ML IV ONE (12:18)
[2021-10-09] MEDS: DOBUTamine 500 MG/250 ML PREMIX IV SCH (12:37)
[2021-10-09] MEDS ORDERED: ALBUMIN 25% 25 GM/100 ML VIAL IV ONE (13:00)
[2021-10-09] MEDS: MIDODRINE 5 MG TABLET PO SCH ×3 (15:41→20:34)
[2021-10-09] MEDS ORDERED: NOREPINEPHRINE 4 MG/4 ML VIAL IV ONE (17:08)
[2021-10-09] MEDS: NOREPINEPHRINE 8 MG in SODIUM CHLORIDE 0.9% 242 ML IV PRN ×2 (17:14→22:47)
[2021-10-09] MEDS ORDERED: ALBUMIN 25% 50 GM/200 ML VIAL IV ONE (17:48)
[2021-10-09] MEDS: ENOXAPARIN 40 MG/0.4 ML SYRINGE SUBCUT SCH (20:33)
[2021-10-09] MEDS: HYDROCORTISONE 100 MG VIAL IV SCH (20:33)
[2021-10-09] MEDS: DEXTROSE 5% NACL 0.9% 1,000 ML IV SCH (20:34)
[2021-10-10] MEDS: INSULIN LISPRO 100 UNIT/ML SUBCUT SCH ×4 (01:25→17:15)
[2021-10-10] MEDS: NOREPINEPHRINE 8 MG in SODIUM CHLORIDE 0.9% 242 ML IV PRN ×4 (02:43→17:50)
[2021-10-10 04:41] LABS: Hemoglobin 8.8 GM/DL (14.0-18.0); Immature Granulocytes Absolute 0.09 #; Lymphocytes # 0.3 10*3/uL (1.4-4.0); Lymphocytes % 2.7 % (21.2-54.2); Mean Corpuscular HGB Conc 32.6 GM/DL (32-36); Mean Corpuscular Volume 98.5 FL (87-102); Mean Platelet Volume 11.5 FL (9.6-12.0); Monocytes % 3.8 % (1.7-12.7); Neutrophils % 92.5 % (38.7-73.9); Platelet Count 115 T/CUMM (130-400); Red Blood Count 2.74 MC/CUMM (3.8-5.5); Red Cell Distribution Width 16.5 % (9.3-17.3); White Blood Count 9.4 T/CUMM (4-12)
[2021-10-10 04:59] LABS: Calcium 7.1 MG/DL (8.5-10.1); Osmolality,Calculated 289.8 MOS/KG (273-304); Potassium 3.8 MMOL/L (3.5-5.1)
[2021-10-10] MEDS: HYDROCORTISONE 100 MG VIAL IV SCH ×3 (05:14→21:46)
[2021-10-10 05:25] LABS: Band Neutrophils 6 % (0-10); Hypochromia 1+; Lymphocytes 1 % (20-55); Microcytosis 1+; Segmented Neutrophils 89 % (50-85); Total Cells Counted 100
[2021-10-10] MEDS: BUDESONIDE 0.25 MG/2 ML NEB RESP TX SCH ×3 (07:30→19:50)
[2021-10-10] MEDS: ALBUTEROL/IPRATROPIUM 3 ML NEB RESP TX SCH ×5 (07:30→19:50)
[2021-10-10] MEDS: ASCORBIC ACID 500 MG TABLET PO SCH ×2 (09:42→21:45)
[2021-10-10] MEDS: MIDODRINE 5 MG TABLET PO SCH ×3 (09:42→21:45)
[2021-10-10] MEDS: NICOTINE 21 MG/24 HR PATCH TRANSDERM SCH (09:42)
[2021-10-10] MEDS: SULFAMETHOX/TRIMETHOPRIM 800-160 MG TABLET PO SCH (09:42)
[2021-10-10] MEDS: SERTRALINE 25 MG TABLET PO SCH (09:42)
[2021-10-10] MEDS: QUEtiapine 25 MG TABLET PO SCH ×2 (09:42→21:45)
[2021-10-10] MEDS: PANTOPRAZOLE 40 MG VIAL IV SCH (09:42)
[2021-10-10 10:29] LABS: Hematocrit 24.1 VOL% (42.0-52.0); Hemoglobin 7.8 GM/DL (14.0-18.0); Immature Granulocytes % 0.3 %; Immature Granulocytes Absolute 0.02 #; Lymphocytes # 0.2 10*3/uL (1.4-4.0); Lymphocytes % 3.1 % (21.2-54.2); Mean Corpuscular HGB Conc 32.4 GM/DL (32-36); Mean Corpuscular Volume 98.4 FL (87-102); Mean Platelet Volume 11.1 FL (9.6-12.0); Monocytes % 2.8 % (1.7-12.7); Neutrophils % 93.8 % (38.7-73.9); Platelet Count 98 T/CUMM (130-400); Red Blood Count 2.45 MC/CUMM (3.8-5.5); Red Cell Distribution Width 16.5 % (9.3-17.3); White Blood Count 6.2 T/CUMM (4-12)
[2021-10-10 10:51] LABS: Band Neutrophils 6 % (0-10); Hypochromia 1+; Microcytosis 1+; Platelet Estimate Decreased; Segmented Neutrophils 92 % (50-85); Total Cells Counted 100
[2021-10-10] MEDS: DEXTROSE 5% NACL 0.9% 1,000 ML IV SCH (12:56)
[2021-10-10] MEDS: ONDANSETRON 4 MG/2 ML VIAL IV PRN (17:50)
[2021-10-10] MEDS: ENOXAPARIN 40 MG/0.4 ML SYRINGE SUBCUT SCH (21:46)
[2021-10-10] MEDS: DOBUTamine 500 MG/250 ML PREMIX IV SCH (22:05)
[2021-10-11] MEDS: NOREPINEPHRINE 8 MG in SODIUM CHLORIDE 0.9% 242 ML IV PRN ×2 (00:06→07:45)
[2021-10-11] MEDS: ALBUTEROL/IPRATROPIUM 3 ML NEB RESP TX SCH ×4 (00:07→19:34)
[2021-10-11] MEDS: DEXTROSE 5% NACL 0.9% 1,000 ML IV SCH ×2 (01:12→16:00)
[2021-10-11] MEDS: INSULIN LISPRO 100 UNIT/ML SUBCUT SCH ×4 (06:14→17:53)
[2021-10-11] MEDS: HYDROCORTISONE 100 MG VIAL IV SCH ×3 (06:25→20:05)
[2021-10-11 06:55] LABS: Hematocrit 22.6 VOL% (42.0-52.0); Hemoglobin 7.4 GM/DL (14.0-18.0); Immature Granulocytes % 1.2 %; Immature Granulocytes Absolute 0.07 #; Lymphocytes # 0.3 10*3/uL (1.4-4.0); Lymphocytes % 4.3 % (21.2-54.2); Mean Corpuscular HGB Conc 32.7 GM/DL (32-36); Mean Corpuscular Volume 99.1 FL (87-102); Mean Platelet Volume 11.2 FL (9.6-12.0); Monocytes % 2.1 % (1.7-12.7); Neutrophils % 92.4 % (38.7-73.9); Platelet Count 80 T/CUMM (130-400); Red Blood Count 2.28 MC/CUMM (3.8-5.5); Red Cell Distribution Width 16.9 % (9.3-17.3); White Blood Count 5.8 T/CUMM (4-12)
[2021-10-11 07:05] LABS: Calcium 7.4 MG/DL (8.5-10.1); Osmolality,Calculated 284.7 MOS/KG (273-304); Potassium 3.5 MMOL/L (3.5-5.1)
[2021-10-11] MEDS: BUDESONIDE 0.25 MG/2 ML NEB RESP TX SCH ×2 (07:12→19:34)
[2021-10-11 08:03] LABS: Band Neutrophils 4 % (0-10); Lymphocytes 3 % (20-55); Segmented Neutrophils 91 % (50-85); Total Cells Counted 100
[2021-10-11 08:04] LABS: Anisocytosis 1+; Elliptocytes Few; Platelet Estimate Adequate; Polychromasia Slight; Tear Drop Cells Few
[2021-10-11] MEDS: PANTOPRAZOLE 40 MG VIAL IV SCH (09:49)
[2021-10-11] MEDS: ASCORBIC ACID 500 MG TABLET PO SCH ×2 (09:49→20:05)
[2021-10-11] MEDS: NICOTINE 21 MG/24 HR PATCH TRANSDERM SCH (09:49)
[2021-10-11] MEDS: SULFAMETHOX/TRIMETHOPRIM 800-160 MG TABLET PO SCH (09:50)
[2021-10-11] MEDS: MIDODRINE 5 MG TABLET PO SCH ×3 (09:50→20:05)
[2021-10-11] MEDS: SERTRALINE 25 MG TABLET PO SCH (09:50)
[2021-10-11] MEDS: QUEtiapine 25 MG TABLET PO SCH ×2 (10:45→20:05)
[2021-10-11] MEDS: DOBUTamine 500 MG/250 ML PREMIX IV SCH (13:41)
[2021-10-11] MEDS: ENOXAPARIN 40 MG/0.4 ML SYRINGE SUBCUT SCH (20:05)
[2021-10-12] MEDS: ALBUTEROL/IPRATROPIUM 3 ML NEB RESP TX SCH ×4 (00:35→19:19)
[2021-10-12] MEDS: INSULIN LISPRO 100 UNIT/ML SUBCUT SCH ×4 (00:43→19:58)
[2021-10-12] MEDS: DEXTROSE 5% NACL 0.9% 1,000 ML IV SCH ×2 (03:05→17:19)
[2021-10-12] MEDS: HYDROCORTISONE 100 MG VIAL IV SCH ×3 (04:30→21:23)
[2021-10-12 07:20] LABS: Hematocrit 23.5 VOL% (42.0-52.0); Hemoglobin 7.3 GM/DL (14.0-18.0); Immature Granulocytes % 5.2 %; Immature Granulocytes Absolute 0.27 #; Lymphocytes # 0.3 10*3/uL (1.4-4.0); Lymphocytes % 6.5 % (21.2-54.2); Mean Corpuscular HGB Conc 31.1 GM/DL (32-36); Mean Corpuscular Volume 102.2 FL (87-102); Mean Platelet Volume 11.4 FL (9.6-12.0); Monocytes % 2.7 % (1.7-12.7); Neutrophils % 85.6 % (38.7-73.9); Platelet Count 51 T/CUMM (130-400); Red Cell Distribution Width 17.7 % (9.3-17.3); White Blood Count 5.2 T/CUMM (4-12)
[2021-10-12 07:25] LABS: Calcium 7.4 MG/DL (8.5-10.1); Osmolality,Calculated 284.4 MOS/KG (273-304); Potassium 3.3 MMOL/L (3.5-5.1)
[2021-10-12] MEDS: BUDESONIDE 0.25 MG/2 ML NEB RESP TX SCH ×2 (08:07→19:19)
[2021-10-12] MEDS: MIDODRINE 5 MG TABLET PO SCH ×3 (09:30→21:23)
[2021-10-12] MEDS: NICOTINE 21 MG/24 HR PATCH TRANSDERM SCH (09:31)
[2021-10-12] MEDS: SERTRALINE 25 MG TABLET PO SCH (09:31)
[2021-10-12] MEDS: QUEtiapine 25 MG TABLET PO SCH ×2 (09:31→21:23)
[2021-10-12] MEDS: ASCORBIC ACID 500 MG TABLET PO SCH ×2 (09:31→21:23)
[2021-10-12] MEDS: SULFAMETHOX/TRIMETHOPRIM 800-160 MG TABLET PO SCH (09:31)
[2021-10-12] MEDS: PANTOPRAZOLE 40 MG VIAL IV SCH (09:34)
[2021-10-12 10:11] LABS: Band Neutrophils 2 % (0-10); Lymphocytes 9 % (20-55); Segmented Neutrophils 84 % (50-85); Total Cells Counted 100
[2021-10-12 10:12] LABS: Ovalocytes Few; Platelet Estimate Decreased; Polychromasia Slight; Tear Drop Cells Few
[2021-10-12] MEDS: ENOXAPARIN 40 MG/0.4 ML SYRINGE SUBCUT SCH (21:22)
[2021-10-12] MEDS: LORazepam 2 MG/1 ML VIAL IV PRN (22:31)
[2021-10-12] MEDS ORDERED: ENOXAPARIN 60 MG/0.6 ML SYRINGE SUBCUT SCH (23:30)
[2021-10-13] MEDS ORDERED: METOPROLOL TARTRATE 5 MG/5 ML VIAL IV SCH
[2021-10-13] MEDS: ALBUTEROL/IPRATROPIUM 3 ML NEB RESP TX SCH ×4 (00:16→20:35)
[2021-10-13] MEDS: METOPROLOL TARTRATE 5 MG/5 ML VIAL IV SCH ×3 (00:28→14:44)
[2021-10-13] MEDS: INSULIN LISPRO 100 UNIT/ML SUBCUT SCH ×5 (01:00→22:02)
[2021-10-13] MEDS: HYDROCORTISONE 100 MG VIAL IV SCH ×3 (04:30→21:54)
[2021-10-13] MEDS: DEXTROSE 5% NACL 0.9% 1,000 ML IV SCH (05:45)
[2021-10-13 06:40] LABS: INR 0.9; PT Patient Result 10.2 SECS (10.5-12.0); Partial Thromboplastin Time 37.4 SECS (23.8-32.1)
[2021-10-13 06:49] LABS: Hematocrit 23.8 VOL% (42.0-52.0); Hemoglobin 7.5 GM/DL (14.0-18.0); Immature Granulocytes % 4.7 %; Immature Granulocytes Absolute 0.22 #; Lymphocytes # 0.3 10*3/uL (1.4-4.0); Mean Corpuscular HGB Conc 31.5 GM/DL (32-36); Mean Corpuscular Volume 101.7 FL (87-102); Mean Platelet Volume 11.9 FL (9.6-12.0); Monocytes % 3.2 % (1.7-12.7); Neutrophils % 85.1 % (38.7-73.9); Platelet Count 44 T/CUMM (130-400); Red Blood Count 2.34 MC/CUMM (3.8-5.5); Red Cell Distribution Width 17.5 % (9.3-17.3); White Blood Count 4.7 T/CUMM (4-12)
[2021-10-13 07:08] LABS: Albumin 2.2 G/DL (3.4-5.0); Bilirubin,Total 0.5 MG/DL (0.20-1.00); Calcium 7.5 MG/DL (8.5-10.1); Osmolality,Calculated 284.3 MOS/KG (273-304); Potassium 3.8 MMOL/L (3.5-5.1); Total Protein 5.5 G/DL (6.4-8.2)
[2021-10-13] MEDS: BUDESONIDE 0.25 MG/2 ML NEB RESP TX SCH ×2 (07:10→20:35)
[2021-10-13 07:18] LABS: Band Neutrophils 3 % (0-10); Hypochromia 1+; Lymphocytes 5 % (20-55); Microcytosis 1+; Ovalocytes Slight; Platelet Estimate Decreased; Segmented Neutrophils 86 % (50-85); Total Cells Counted 100
[2021-10-13] MEDS: ASCORBIC ACID 500 MG TABLET PO SCH ×2 (09:45→21:54)
[2021-10-13] MEDS: MIDODRINE 5 MG TABLET PO SCH ×3 (09:45→21:53)
[2021-10-13] MEDS: SERTRALINE 25 MG TABLET PO SCH (09:46)
[2021-10-13] MEDS: SULFAMETHOX/TRIMETHOPRIM 800-160 MG TABLET PO SCH (09:46)
[2021-10-13] MEDS: PANTOPRAZOLE 40 MG VIAL IV SCH (09:46)
[2021-10-13] MEDS: NICOTINE 21 MG/24 HR PATCH TRANSDERM SCH (10:01)
[2021-10-13] MEDS: QUEtiapine 25 MG TABLET PO SCH ×2 (10:02→21:54)
[2021-10-13] MEDS ORDERED: POTASSIUM CHLORIDE 20 MEQ TABLET PO ONE (11:00)
[2021-10-13] MEDS ORDERED: MAGNESIUM SULF RIDER 2 GM/50 ML PREMIX IV ONE (13:00)
[2021-10-13] MEDS: DIGOXIN 0.125 MG TABLET PO SCH (14:43)
[2021-10-13] MEDS: METOPROLOL TARTRATE 25 MG TABLET PO SCH (21:54)
[2021-10-13] MEDS: LORazepam 2 MG/1 ML VIAL IV PRN (21:54)
[2021-10-13] MEDS: MENTHOL/ZINC OXIDE OINT 71 GM JAR TOP SCH (22:28)
[2021-10-14] MEDS: ALBUTEROL/IPRATROPIUM 3 ML NEB RESP TX SCH ×4 (01:39→19:50)
[2021-10-14] MEDS: METOPROLOL TARTRATE 5 MG/5 ML VIAL IV SCH ×4 (02:04→12:55)
[2021-10-14] MEDS: HYDROCORTISONE 100 MG VIAL IV SCH ×3 (03:58→20:45)
[2021-10-14] MEDS: DEXTROSE 5% NACL 0.9% 1,000 ML IV SCH (04:01)
[2021-10-14] MEDS: BUDESONIDE 0.25 MG/2 ML NEB RESP TX SCH ×2 (07:16→19:50)
[2021-10-14 08:21] LABS: Hematocrit 23.2 VOL% (42.0-52.0); Hemoglobin 7.4 GM/DL (14.0-18.0); Immature Granulocytes % 4.3 %; Immature Granulocytes Absolute 0.17 #; Lymphocytes # 0.4 10*3/uL (1.4-4.0); Lymphocytes % 10.3 % (21.2-54.2); Mean Corpuscular HGB Conc 31.9 GM/DL (32-36); Mean Corpuscular Volume 99.6 FL (87-102); Mean Platelet Volume 10.7 FL (9.6-12.0); Monocytes % 2.8 % (1.7-12.7); Neutrophils % 82.6 % (38.7-73.9); Platelet Count 41 T/CUMM (130-400); Red Blood Count 2.33 MC/CUMM (3.8-5.5); Red Cell Distribution Width 17.6 % (9.3-17.3)
[2021-10-14 08:35] LABS: Calcium 8.2 MG/DL (8.5-10.1); Osmolality,Calculated 282.5 MOS/KG (273-304); Potassium 4.1 MMOL/L (3.5-5.1)
[2021-10-14] MEDS: QUEtiapine 25 MG TABLET PO SCH ×2 (08:46→20:44)
[2021-10-14] MEDS: PANTOPRAZOLE 40 MG VIAL IV SCH (08:46)
[2021-10-14] MEDS: ASCORBIC ACID 500 MG TABLET PO SCH ×2 (08:46→20:45)
[2021-10-14] MEDS: SERTRALINE 25 MG TABLET PO SCH (08:47)
[2021-10-14] MEDS: METOPROLOL TARTRATE 25 MG TABLET PO SCH ×2 (08:47→20:45)
[2021-10-14] MEDS: MIDODRINE 5 MG TABLET PO SCH ×3 (08:47→20:44)
[2021-10-14] MEDS: SULFAMETHOX/TRIMETHOPRIM 800-160 MG TABLET PO SCH (08:47)
[2021-10-14 08:55] LABS: Hypochromia 1+; Lymphocytes 7 % (20-55); Microcytosis 1+; Platelet Estimate Decreased; Segmented Neutrophils 91 % (50-85); Total Cells Counted 100
[2021-10-14] MEDS: NICOTINE 21 MG/24 HR PATCH TRANSDERM SCH (08:55)
[2021-10-14] MEDS: INSULIN LISPRO 100 UNIT/ML SUBCUT SCH ×4 (08:59→22:56)
[2021-10-14] MEDS: MENTHOL/ZINC OXIDE OINT 71 GM JAR TOP SCH ×2 (09:07→22:55)
[2021-10-14] MEDS: DIGOXIN 0.125 MG TABLET PO SCH (12:54)
[2021-10-14] MEDS: LORazepam 2 MG/1 ML VIAL IV PRN (20:45)
[2021-10-15] MEDS: METOPROLOL TARTRATE 5 MG/5 ML VIAL IV SCH ×3 (00:52→07:23)
[2021-10-15] MEDS: ALBUTEROL/IPRATROPIUM 3 ML NEB RESP TX SCH ×4 (00:59→19:15)
[2021-10-15] MEDS: HYDROCORTISONE 100 MG VIAL IV SCH (04:38)
[2021-10-15 05:44] LABS: Basophils % 0.2 % (0.0-0.8); Hematocrit 25.5 VOL% (42.0-52.0); Immature Granulocytes % 4.2 %; Immature Granulocytes Absolute 0.17 #; Lymphocytes # 0.7 10*3/uL (1.4-4.0); Mean Corpuscular HGB Conc 31.4 GM/DL (32-36); Mean Platelet Volume 11.8 FL (9.6-12.0); Monocytes % 3.5 % (1.7-12.7); Neutrophils % 75.1 % (38.7-73.9); Platelet Count 48 T/CUMM (130-400); Red Cell Distribution Width 17.6 % (9.3-17.3)
[2021-10-15 05:47] LABS: Calcium 7.8 MG/DL (8.5-10.1); Potassium 4.3 MMOL/L (3.5-5.1)
[2021-10-15 06:16] LABS: Lymphocytes 15 % (20-55); Nucleated Red Blood Cells 1 (0-5); Segmented Neutrophils 79 % (50-85); Total Cells Counted 100
[2021-10-15 06:17] LABS: Atypical Lymphocytes Few; Hypochromia 1+; Microcytosis 1+; Ovalocytes Slight; Platelet Estimate Decreased
[2021-10-15] MEDS: BUDESONIDE 0.25 MG/2 ML NEB RESP TX SCH ×2 (06:57→19:15)
[2021-10-15] MEDS: INSULIN LISPRO 100 UNIT/ML SUBCUT SCH ×4 (08:37→21:40)
[2021-10-15] MEDS: DEXTROSE 5% NACL 0.9% 1,000 ML IV SCH (08:38)
[2021-10-15] MEDS ORDERED: METOPROLOL TARTRATE 5 MG/5 ML VIAL IV PRN (09:05)
[2021-10-15] MEDS: SULFAMETHOX/TRIMETHOPRIM 800-160 MG TABLET PO SCH (09:22)
[2021-10-15] MEDS: MIDODRINE 5 MG TABLET PO SCH ×3 (09:22→21:39)
[2021-10-15] MEDS: QUEtiapine 25 MG TABLET PO SCH ×2 (09:22→21:39)
[2021-10-15] MEDS: SERTRALINE 25 MG TABLET PO SCH (09:23)
[2021-10-15] MEDS: MENTHOL/ZINC OXIDE OINT 71 GM JAR TOP SCH ×2 (09:23→21:39)
[2021-10-15] MEDS: PANTOPRAZOLE 40 MG VIAL IV SCH (09:23)
[2021-10-15] MEDS: ASCORBIC ACID 500 MG TABLET PO SCH ×2 (09:23→21:39)
[2021-10-15] MEDS: NICOTINE 21 MG/24 HR PATCH TRANSDERM SCH (09:25)
[2021-10-15] MEDS: METOPROLOL TARTRATE 25 MG TABLET PO SCH ×2 (09:44→21:39)
[2021-10-15] MEDS: DIGOXIN 0.125 MG TABLET PO SCH (12:38)
[2021-10-15] MEDS: FUROSEMIDE 20 MG/2 ML VIAL IV SCH (15:45)
[2021-10-16] MEDS: ALBUTEROL/IPRATROPIUM 3 ML NEB RESP TX SCH ×4 (00:07→19:23)
[2021-10-16] MEDS: LORazepam 2 MG/1 ML VIAL IV PRN ×4 (01:34→20:46)
[2021-10-16 05:38] LABS: Eosinophils % 0.9 % (0.00-10.9); Hemoglobin 8.2 GM/DL (14.0-18.0); Immature Granulocytes % 1.8 %; Immature Granulocytes Absolute 0.06 #; Lymphocytes # 0.5 10*3/uL (1.4-4.0); Lymphocytes % 14.2 % (21.2-54.2); Mean Corpuscular HGB Conc 31.5 GM/DL (32-36); Mean Corpuscular Volume 100.4 FL (87-102); Mean Platelet Volume 11.2 FL (9.6-12.0); Monocytes % 3.6 % (1.7-12.7); Neutrophils % 79.5 % (38.7-73.9); Platelet Count 65 T/CUMM (130-400); Red Blood Count 2.59 MC/CUMM (3.8-5.5); Red Cell Distribution Width 17.4 % (9.3-17.3); White Blood Count 3.3 T/CUMM (4-12)
[2021-10-16 05:54] LABS: Calcium 8.1 MG/DL (8.5-10.1); Osmolality,Calculated 287.3 MOS/KG (273-304); Potassium 4.2 MMOL/L (3.5-5.1)
[2021-10-16 06:05] LABS: Hypochromia 1+; Microcytosis 1+; Platelet Estimate Decreased
[2021-10-16] MEDS: BUDESONIDE 0.25 MG/2 ML NEB RESP TX SCH ×2 (06:53→19:24)
[2021-10-16] MEDS: INSULIN LISPRO 100 UNIT/ML SUBCUT SCH ×4 (09:00→20:54)
[2021-10-16] MEDS: MORPHINE 4 MG/1 ML VIAL IV PRN ×3 (11:42→20:47)
[2021-10-16] MEDS: FUROSEMIDE 20 MG/2 ML VIAL IV SCH (16:14)
[2021-10-16] MEDS: SULFAMETHOX/TRIMETHOPRIM 800-160 MG TABLET PO SCH (16:14)
[2021-10-16] MEDS: QUEtiapine 25 MG TABLET PO SCH ×2 (16:15→20:27)
[2021-10-16] MEDS: SERTRALINE 25 MG TABLET PO SCH (16:15)
[2021-10-16] MEDS: ASCORBIC ACID 500 MG TABLET PO SCH ×2 (16:15→20:27)
[2021-10-16] MEDS: METOPROLOL TARTRATE 25 MG TABLET PO SCH ×2 (16:15→20:26)
[2021-10-16] MEDS: MIDODRINE 5 MG TABLET PO SCH ×2 (16:15→20:27)
[2021-10-16] MEDS: DIGOXIN 0.125 MG TABLET PO SCH (16:16)
[2021-10-16] MEDS: MENTHOL/ZINC OXIDE OINT 71 GM JAR TOP SCH (16:17)
[2021-10-16] MEDS: NICOTINE 21 MG/24 HR PATCH TRANSDERM SCH (16:28)
[2021-10-16] MEDS ORDERED: LORazepam 2 MG/1 ML VIAL ONE (16:33)
[2021-10-17] MEDS: ALBUTEROL/IPRATROPIUM 3 ML NEB RESP TX SCH ×3 (00:05→13:20)
[2021-10-17] MEDS: MENTHOL/ZINC OXIDE OINT 71 GM JAR TOP SCH ×2 (02:18→11:35)
[2021-10-17 05:27] LABS: Basophils % 0.3 % (0.0-0.8); Hematocrit 27.9 VOL% (42.0-52.0); Hemoglobin 8.5 GM/DL (14.0-18.0); Immature Granulocytes % 6.3 %; Immature Granulocytes Absolute 0.25 #; Lymphocytes # 0.4 10*3/uL (1.4-4.0); Lymphocytes % 9.3 % (21.2-54.2); Mean Corpuscular HGB Conc 30.5 GM/DL (32-36); Mean Corpuscular Volume 103.3 FL (87-102); Mean Platelet Volume 10.8 FL (9.6-12.0); Monocytes % 4.5 % (1.7-12.7); NRBC # 0.03 10*3/uL; Neutrophils % 79.6 % (38.7-73.9); Platelet Count 68 T/CUMM (130-400); Red Cell Distribution Width 17.4 % (9.3-17.3)
[2021-10-17 05:49] LABS: Calcium 8.4 MG/DL (8.5-10.1)
[2021-10-17 06:07] LABS: Lymphocytes 6 % (20-55); Platelet Estimate Decreased; Segmented Neutrophils 90 % (50-85); Total Cells Counted 100
[2021-10-17 06:08] LABS: Macrocytosis 1+
[2021-10-17] MEDS: BUDESONIDE 0.25 MG/2 ML NEB RESP TX SCH (07:20)
[2021-10-17] MEDS: INSULIN LISPRO 100 UNIT/ML SUBCUT SCH ×3 (07:54→16:56)
[2021-10-17 08:04] VITALS: BP 86/66
[2021-10-17] MEDS ORDERED: AZITHROMYCIN 250 MG TABLET PO SCH (09:00)
[2021-10-17] MEDS: MORPHINE 4 MG/1 ML VIAL IV PRN (09:52)
[2021-10-17] MEDS: QUEtiapine 25 MG TABLET PO SCH (10:49)
[2021-10-17] MEDS: METOPROLOL TARTRATE 25 MG TABLET PO SCH (10:49)
[2021-10-17] MEDS: MIDODRINE 5 MG TABLET PO SCH ×2 (10:49→15:25)
[2021-10-17] MEDS: SULFAMETHOX/TRIMETHOPRIM 800-160 MG TABLET PO SCH (10:49)
[2021-10-17] MEDS: ASCORBIC ACID 500 MG TABLET PO SCH (10:50)
[2021-10-17] MEDS: SERTRALINE 25 MG TABLET PO SCH (10:50)
[2021-10-17] MEDS: NICOTINE 21 MG/24 HR PATCH TRANSDERM SCH (11:34)
[2021-10-17] MEDS: FUROSEMIDE 20 MG/2 ML VIAL IV SCH ×2 (11:34→16:56)
[2021-10-17] MEDS: DIGOXIN 0.125 MG TABLET PO SCH (12:29)
[2021-10-17] MEDS: LORazepam 2 MG/1 ML VIAL IV PRN (13:30)
== END 2021-10-17 16:51 | disposition hospice, inpatient (51) | DRG 208 ==
LOC: N.ED 13:51 → SUATTDRO 22:25 → N.EDINP 22:25 → N.TELES 09-23 20:10 → N.ICU 09-25 18:41 → N.5E 10-01 16:29 → N.ICU 10-09 14:06 → N.5E 10-12 13:08
PROVIDERS: ADMIT Hospitalist; ATTEND Internal Medicine Geriatric Medicine

== ENCOUNTER 2021-10-17 17:03 | Inpatient (IN) ==
[2021-10-17] MEDS ORDERED: ONDANSETRON 4 MG/2 ML VIAL IV PRN (17:35)
[2021-10-17] MEDS ORDERED: MORPHINE 4 MG/1 ML VIAL IV PRN (17:40)
[2021-10-17] MEDS: LORazepam 2 MG/1 ML VIAL IV PRN ×2 (18:06→22:32)
[2021-10-17 20:28] VITALS: BP 93/57
[2021-10-17] MEDS: MORPHINE 4 MG/1 ML VIAL IV PRN (20:43)
[2021-10-18] MEDS: MORPHINE 4 MG/1 ML VIAL IV PRN (02:08)
[2021-10-18] MEDS: LORazepam 2 MG/1 ML VIAL IV PRN ×2 (06:21→11:22)
== END 2021-10-18 12:25 | disposition expired | DRG 951 ==
LOC: N.5E 17:03
PROVIDERS: ADMIT Internal Medicine Geriatric Medicine; ATTEND Internal Medicine Geriatric Medicine